=== PATIENT | male | born 1935 | race Caucasian/White ===

== ENCOUNTER 2018-04-18 17:50 | Inpatient (IN) | payer MEDICARE, MEDICAID ==
--- NOTE | 2018-04-18 18:12 | ED Physician Chart ---
ED Chief Complaint/HPI - Patient Information Date Seen:: 04/18/18 Time Seen:: 18:00 Chief Complaint:: Agitation History of Present Illness:: onset x 3 days of agitation and anxiety; no report of LOC, ALOC, SIs, AMS, H/As , neck pain, C/P, SOB, Abd. Pain, A/N/V/D/C, fever, chills, or urinary s/s Allergies:: Allergies Allergy/AdvReac Type Severity Reaction Status Date / Time No Known Allergies Allergy Verified 04/18/18 17:57 Vitals:: Vital Signs - 8 hr 04/18/18 18:03 Temp 99.1 F HR 85 RR 18 BP 133/81 O2 Sat % 98 Historian:: Patient, EMS Review:: Nurse's Note Reviewed, Old Chart Reviewed, EMS run form Reviewed ED Review of Systems - Review of Systems General/Constitutional: No fever, No chills, No weight loss, No weakness, No diaphoresis, No edema, No loss of appetite Skin: No skin lesions, No rash, No bruising Head: No headache, No light-headedness Eyes: No loss of vision, No pain, No diplopia ENT: No earache, No nasal drainage, No sore throat, No tinnitus Neck: No neck pain, No swelling, No thyromegaly, No stiffness, No mass noted Cardio Vascular: No chest pain, No palpitations, No PND, No orthopnea, No edema Pulmonary: No SOB, No cough, No sputum, No wheezing GI: No nausea, No vomiting, No diarrhea, No pain, No melena, No hematochezia, No constipation, No hematemesis G/U: No dysuria, No frequency, No hematuria, No nacturia Musculoskeletal: No bone or joint pain, No back pain, No muscle pain Endocrine: No polyuria, No polydipsia Psychiatric: Prior psych history, Depression, Anxiety, No suicidal ideation, No homicidal ideation, No auditory hallucination, No visual hallucination Hematopoietic: No bruising, No lymphadenopathy Allergic/Immuno: No urticaria, No angioedema Neurological: No syncope, No focal symptoms, No weakness, No paresthesia, No headache, No seizure, No dizziness, No confusion, No vertigo ED Past Medical History - Past Medical History Obtainable: Yes Past Medical History: HTN, Dyslipidemia, Arthritis Family History: HTN Social History: Non Smoker, No Alcohol, No Drug Use, Single, Care Facility Surgical History: None Psychiatricy History: Depression, Bipolar Medication: Reviewed Family Medical History - Family Member Father History Unknown: Yes ED Physical Exam - Physical Examination General/Constitutional: Awake, Well-developed, well-nourished, Alert, No distress, GCS 15, Non-toxic appearing, Ambulatory Head: Atraumatic Eyes: Lids, conjuctiva normal, PERRL, EOMI Skin: Nl inspection, No rash, No skin lesions, No ecchymosis, Well hydrated, No lymphadenopathy ENMT: External ears, nose nl, TM canals nl, Nasal exam nl, Lips, teeth, gums nl , Oropharynx nl, Tonsils nl Neck: Nontender, Full ROM w/o pain, No JVD, No nuchal rigidity, No bruit, No mass, No stridor Respiratory: Nl effort/Exclusion, Clear to Auscultation, No Wheeze/Rhonchi/Rales Cardio Vascular: RRR, No murmur, gallop, rubs, NL S1 S2, Carotid/Femoral/Distal pulses equal bilaterally GI: No tenderness/rebounding/guarding, No organomegaly, No hernia, Normal BS's, Nondistended, No mass/bruits, No McBurney tenderness : No CVA tenderness Extremities: No tenderness or effusion, Full ROM, normal strength in all extremities, No edema, Normal digits & nails Neuro/Psych: Alert/oriented, DTR's symmetric, Normal sensory exam, Normal motor strength, Judgement/insight normal, Mood normal, Normal gait, No focal deficits Other Neuro/Psych comments:: + Psychomotor Agitation; Anxious pt; no SIs; Mood/Affect: Labile Misc: Normal back, No paraspinal tenderness ED Labs/Radiology/EKG Results - Lab Results Comments:: Reviewed - EKG Interpretations EKG Time:: 18:27 Rate & Rhythm: 82; NSR Comments:: non-specific st-t changes ED Septic Shock - . Is Septic Shock (SBP<90, OR Lactate>4 mmol\L) present?: No - <6hrs of presentation: Vital Signs: Vital Signs - 8 hr 04/18/18 18:03 Temp 99.1 F HR 85 RR 18 BP 133/81 O2 Sat % 98 ED Reassessment (Disposition) - Reassessment Reassessment Condition:: Improved - Diagnosis Diagnosis:: Agitation; Anxiety; Medical Clearance
[2018-04-18 19:09] LABS: % BASOPHILS 0.4 % (0.0-2.0); % EOSINOPHILS 4.1 % (0.0-5.0); % LYMPHOCYTES 21.1 % (20.0-50.0); % MONOCYTES 11.3 % (2.0-10.0); % NEUTROPHILS 63.1 % (40.0-80.0); EOSINOPHILE ABSOLUTE 0.2 Th/cmm (0.1-0.4); HEMATOCRIT 43.8 % (41.0-60); HEMOGLOBIN 14.6 gm/dL (12-16); LYMPHOCYTE ABSOLUTE 1.1 Th/cmm (1.5-3.0); MEAN CELL VOLUME 98.2 fl (80-99); MEAN CORPUSCULAR HEMOGLOBIN 32.8 pg (27.0-31.0); MEAN CORPUSCULAR HGB CONC 33.4 pg (28.0-36.0); MEAN PLATELET VOLUME 8.4 fl; MONOCYTE ABSOLUTE 0.6 Th/cmm (0.3-1.0); NEUTROPHILE ABSOLUTE 3.3 Th/cmm (1.8-8.0); PLATELET COUNT 197 Th/cmm (150-400); RED BLOOD COUNT 4.46 Mil/cmm (3.80-5.80); RED CELL DISTRIBUTION WIDTH 12.5 % (11.5-20.0); WHITE BLOOD COUNT 5.2 Th/cmm (4.8-10.8)
[2018-04-18 19:27] LABS: ACETAMINOPHEN < 10.0 ug/mL (10.0-30.0); ALB/GLOB RATIO 1.3 (1.0-1.8); ALBUMIN 3.9 gm/dL (4.2-5.5); ALKALINE PHOSPHATASE 87 U/L (34-104); ANION GAP 13.3 (7.0-16.0); BILIRUBIN,TOTAL 0.5 mg/dL (0.3-1.0); BUN - UREA NITROGEN 16 mg/dL (7-25); CALCIUM SERUM 9.4 mg/dL (8.6-10.3); CARBON DIOXIDE 25.8 mEq/L (21.0-31.0); CHLORIDE 104 mEq/L (98-107); CHOLESTEROL 141 mg/dL (<200); CREATININE - SERUM 1.1 mg/dL (0.7-1.3); GLUCOSE 82 mg/dL (70-105); HDL -HIGH DENSITY LIPOPROTEIN 41 mg/dL (23-92); POTASSIUM SERUM 4.1 mEq/L (3.5-5.1); SALICYLATES (ASPIRIN) < 25.0 mg/L (30.0-100.0); SGOT 23 U/L (13-39); SGPT/ALT 20 U/L (7-52); SODIUM SERUM 139 mEq/L (136-145); TOTAL PROTEIN,SERUM 6.9 gm/dL (6.0-8.3); TRIGLYCERIDES 62 mg/dL (<150)
[2018-04-18 20:37] VITALS: BP 132/84
[2018-04-18] MEDS ORDERED: Maalox 30 mL Cup PO PRN (22:00)
[2018-04-18] MEDS ORDERED: Magnesium Hydroxide (MOM) 30 mL UDC PO PRN (22:00)
[2018-04-19] MEDS: Pantoprazole 40 mg EC Tab PO SCH (08:30)
[2018-04-19] MEDS: Fexofenadine 60 mg Tab PO SCH ×2 (08:31→17:15)
[2018-04-19] MEDS: Atorvastatin Calcium 10 MG TAB PO SCH (08:31)
[2018-04-19] MEDS: Multivitamin Tab PO SCH (08:32)
[2018-04-19] MEDS ORDERED: Non-Formulary Item 1 EA (Melatonin [Melatonin] 6 MG) PO SCH (21:00)
--- NOTE | 2018-04-19 21:42 | History & Physical ---
ADMIT DATE: CHIEF COMPLAINT: Psychosis. HISTORY OF PRESENT ILLNESS: The patient is an 82-year-old male with long history of dementia, hypertension, benign prostatic hypertrophy, hyperlipidemia, resident at [facility], transferred to the Emergency Room for evaluation and treatment. The patient has been agitated, confused. No chest pain, no shortness of breath, nausea, vomiting, fever or chills. PAST MEDICAL HISTORY: Significant for hypertension, benign prostatic hypertrophy, hyperlipidemia, dementia and psychosis. PAST SURGICAL HISTORY: No recent surgery. ALLERGIES: None. MEDICATIONS: Follow admission reconciliation. SOCIAL HISTORY: Nonsmoker, no alcohol, no drug. FAMILY HISTORY: Noncontributory. REVIEW OF SYSTEMS: RENAL SYSTEM: No history of chronic renal disorder. CARDIOVASCULAR SYSTEM: No coronary artery disease. ENDOCRINE SYSTEM: No diabetes or thyroid problem. GASTROINTESTINAL SYSTEM: No upper or lower GI bleeding. NEUROLOGICAL SYSTEM: No seizure disorder. MUSCULOSKELETAL SYSTEM: No muscular dystrophy. HEMATOLOGIC: No bleeding tendencies. RESPIRATORY SYSTEM: No asthma. GENITOURINARY: No dysuria or hematuria. PHYSICAL EXAMINATION: GENERAL: He is awake, not coherent. VITAL SIGNS: Temperature is 98.6, heart rate 88, blood pressure 144/78. HEENT: Normocephalic. Pupils reactive to light and accommodation. Sclerae clear. NECK: Supple. Negative for lymphadenopathy, JVD or bruit. CHEST: Entry of air bilaterally normal. No rhonchi or wheezing. HEART: S1, S2 normal. No gallop rhythm. ABDOMEN: Soft, bowel sounds positive. EXTREMITIES: No edema. NEUROLOGIC: He is awake, alert, mildly confused. No focal motor or sensory deficit. LABORATORY DATA: White blood cell 5.2, hemoglobin 14.6, hematocrit 43.8, platelet 197. Sodium 139, potassium 4.1, BUN is 16, creatinine 0.1. ASSESSMENT: 1. Hypertension. 2. Benign prostatic hypertrophy. 3. Hyperlipidemia. 4. Dementia. 5. Psychosis. PLAN: The patient is in the hospital under Dr. Powers's service. Medical problem to be addressed during hospitalization is his psychosis. Medical problems to be addressed at discharge are hypertension, benign prostatic hypertrophy, hyperlipidemia. The patient is medically stable for activity. The patient is a full code. Thank you Dr. Powers for asking me to see your patient. JOB# [id number]
--- NOTE | 2018-04-20 02:55 | Psychiatric Evaluation ---
DATE OF SERVICE: 04/19/2018 JUSTIFICATION FOR HOSPITALIZATION: Agitation and anxiety. 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 PAST PSYCHIATRIC HISTORY: Unclear. Documentation of schizophrenia, dementia. FAMILY HISTORY: Noncontributory. SOCIAL HISTORY: The patient coming from care home. Not answering questions such as where he was born. MEDICATIONS: Reviewed including dosages and frequencies. MENTAL STATUS EXAMINATION: -Thai male wearing a hat, wandering back and forth, psychomotorically accelerated. Mood "fine." Affect flat. Thought processes were disorganized, disoriented. No overt SI or HI, but mumbling to self, paranoid as noted. Poor insight, poor judgment. PROVISIONAL DIAGNOSES: Dementia, schizophrenia per documentation. Under medical, please see full H and P. ESTIMATED LENGTH OF STAY: 7-10 days. 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 PLAN: We will continue to monitor, titrate and adjust medications. Continue Seroquel. The patient will likely need dose adjustments of medications. CONDITIONS UPON DISCHARGE: Improved mood, better control of his psychotic symptoms. JOB# [id number]
[2018-04-20] MEDS: Pantoprazole 40 mg EC Tab PO SCH (06:51)
[2018-04-20] MEDS: Multivitamin Tab PO SCH ×2 (09:56→10:09)
[2018-04-20] MEDS: Atorvastatin Calcium 10 MG TAB PO SCH ×2 (09:56→10:09)
[2018-04-20] MEDS: Fexofenadine 60 mg Tab PO SCH ×3 (09:56→16:21)
--- NOTE | 2018-04-20 21:38 | Internal Medicine Prog Note ---
Internal Medicine Subjective - Subjective Service Date: 04/20/18 Patient seen and examined:: with staff Patient is:: awake, verbal, in bed, talking, confused Per staff patient has:: no adverse event Internal Medicine Objective - Results Result Diagrams: 04/18/18 18:57 04/18/18 18:57 Recent Labs: Laboratory Last Values WBC 5.2 Th/cmm (4.8-10.8) 04/18/18 18:57 RBC 4.46 Mil/cmm (3.80-5.80) 04/18/18 18:57 Hgb 14.6 gm/dL (12-16) 04/18/18 18:57 Hct 43.8 % (41.0-60) 04/18/18 18:57 MCV 98.2 fl (80-99) 04/18/18 18:57 MCH 32.8 pg (27.0-31.0) H 04/18/18 18:57 MCHC Differential 33.4 pg (28.0-36.0) 04/18/18 18:57 RDW 12.5 % (11.5-20.0) 04/18/18 18:57 Plt Count 197 Th/cmm (150-400) 04/18/18 18:57 MPV 8.4 fl 04/18/18 18:57 Neutrophils % 63.1 % (40.0-80.0) 04/18/18 18:57 Lymphocytes % 21.1 % (20.0-50.0) 04/18/18 18:57 Monocytes % 11.3 % (2.0-10.0) H 04/18/18 18:57 Eosinophils % 4.1 % (0.0-5.0) 04/18/18 18:57 Basophils % 0.4 % (0.0-2.0) 04/18/18 18:57 Sodium 139 mEq/L (136-145) 04/18/18 18:57 Potassium 4.1 mEq/L (3.5-5.1) 04/18/18 18:57 Chloride 104 mEq/L (98-107) 04/18/18 18:57 Carbon Dioxide 25.8 mEq/L (21.0-31.0) 04/18/18 18:57 Anion Gap 13.3 (7.0-16.0) 04/18/18 18:57 BUN 16 mg/dL (7-25) 04/18/18 18:57 Creatinine 1.1 mg/dL (0.7-1.3) 04/18/18 18:57 Est GFR ( Amer) TNP 04/18/18 18:57 Est GFR (Non-Af Amer) TNP 04/18/18 18:57 BUN/Creatinine Ratio 14.5 04/18/18 18:57 Glucose 82 mg/dL (70-105) 04/18/18 18:57 Calcium 9.4 mg/dL (8.6-10.3) 04/18/18 18:57 Total Bilirubin 0.5 mg/dL (0.3-1.0) 04/18/18 18:57 AST 23 U/L (13-39) 04/18/18 18:57 ALT 20 U/L (7-52) 04/18/18 18:57 Alkaline Phosphatase 87 U/L (34-104) 04/18/18 18:57 Troponin I 0.01 ng/mL (0.01-0.05) 04/18/18 18:57 Total Protein 6.9 gm/dL (6.0-8.3) 04/18/18 18:57 Albumin 3.9 gm/dL (4.2-5.5) L 04/18/18 18:57 Globulin 3.0 gm/dL 04/18/18 18:57 Albumin/Globulin Ratio 1.3 (1.0-1.8) 04/18/18 18:57 Triglycerides 62 mg/dL (<150) 04/18/18 18:57 Cholesterol 141 mg/dL (<200) 04/18/18 18:57 LDL Cholesterol Direct 87 mg/dL (75-193) 04/18/18 18:57 HDL Cholesterol 41 mg/dL (23-92) 04/18/18 18:57 TSH 1.91 uIU/ml (0.34-5.60) 04/18/18 18:57 Salicylates < 25.0 mg/L (30.0-100.0) L 04/18/18 18:57 Acetaminophen < 10.0 ug/mL (10.0-30.0) L 04/18/18 18:57 Ethyl Alcohol < 10 mg/dL (0-10) 04/18/18 18:57 - Physical Exam Vitals and I&O: Vital Signs Temp 0 F 04/20/18 05:53 Pulse 98 04/19/18 14:00 Resp 19 04/20/18 20:00 BP 114/66 04/19/18 14:00 Pulse Ox 97 04/19/18 14:00 Intake & Output 04/20/18 04/20/18 04/21/18 06:59 18:59 06:59 Other: # Voids 3 Stool Characteristics Soft Soft Soft Active Medications: Current Medications Acetaminophen (Tylenol) 650 mg PO Q4HR PRN PRN Reason: Mild Pain / Temp above 100 Stop: 06/17/18 21:59 Al Hydrox/Mg Hydrox/Simethicone (Maalox) 30 ml PO Q4HR PRN PRN Reason: GI DISTRESS Stop: 06/17/18 21:59 Aspirin (Ecotrin) 81 mg PO DAILY [facility] Stop: 06/18/18 08:59 Last Admin: 04/20/18 10:09 Dose: Not Given Atorvastatin Calcium (Lipitor) 10 mg PO DAILY [facility]; Protocol Stop: 06/18/18 08:59 Last Admin: 04/20/18 10:09 Dose: Not Given Cyanocobalamin (Vitamin B12) 1,000 mcg IM QMONTH [facility] Stop: 06/18/18 08:59 Last Admin: 04/19/18 08:32 Dose: 1,000 mcg Donepezil HCl (Aricept) 5 mg PO HS [facility] Stop: 06/19/18 20:59 Doxazosin Mesylate (Cardura) 2 mg PO HS [facility] Stop: 06/18/18 20:59 Last Admin: 04/19/18 21:18 Dose: Not Given Fexofenadine HCl (Noemi) 60 mg PO BID [facility] Stop: 06/18/18 08:59 Last Admin: 04/20/18 16:21 Dose: Not Given Lorazepam (Ativan) 0.5 mg PO Q4HR PRN; Protocol PRN Reason: Anxiety Stop: 05/18/18 21:59 Last Admin: 04/19/18 17:20 Dose: 0.5 mg Magnesium Hydroxide (Milk Of Magnesia) 30 ml PO HS PRN PRN Reason: Constipation Memantine (Namenda) 5 mg PO DAILY [facility] Stop: 06/20/18 08:59 Multivitamins/Vitamin C (Theragran) 1 tab PO DAILY [facility] Stop: 06/18/18 08:59 Last Admin: 04/20/18 10:09 Dose: Not Given Pantoprazole Sodium (Protonix) 40 mg PO DAILY@0730 [facility] Stop: 06/18/18 07:29 Last Admin: 04/20/18 06:51 Dose: Not Given Quetiapine Fumarate (Seroquel) 200 mg PO BID [facility]; Protocol Stop: 06/18/18 08:59 Last Admin: 04/20/18 16:21 Dose: Not Given Zolpidem Tartrate (Ambien) 5 mg PO HS PRN PRN Reason: Insomnia Stop: 06/17/18 21:59 General: alert, demented HEENT: NC/AT, PERRLA, anicteric sclerae, throat clear Neck: Supple, No JVD, No thyromegaly, +2 carotid pulse wo bruit, No LAD Lungs: CTAB Cardiovascular: RRR, Normal S1, Normal S2, without murmur Abdomen: soft, non-tender, non-distended Extremities: clear Neurological: no change Internal Medicine Assmt/Plan - Assessment Assessment: 1.HTN. 2.BPH. 3.HYPERLIPIDEMIA. 4.DEMENTIA. 5.PSYCHOSIS. - Plan Plan: CONTINUE ON CURRENT MEDICATION AND DIET.
--- NOTE | 2018-04-21 04:04 | Progress Notes ---
DATE: 04/20/2018 SUBJECTIVE: An 82-year-old male, very confused, disoriented, forgetful, preoccupied, talking to himself, could combative, agitated at times, disrobing in the middle of the hallway, having difficulty putting his own clothes. Not answering any questions. "Just leave me alone with my thoughts." The patient needing some p.r.n. Ativan for becoming unruly, going into other patients' rooms starting to swing and trying to hit staff. ASSESSMENT: The patient unruly, agitated, very confused, disoriented, disrobing. PLAN: We will continue to monitor. Continue Seroquel. The patient may need adjustment of medications. JOB# [id number]
[2018-04-21] MEDS: Pantoprazole 40 mg EC Tab PO SCH (06:42)
[2018-04-21] MEDS: Multivitamin Tab PO SCH (09:26)
[2018-04-21] MEDS: Atorvastatin Calcium 10 MG TAB PO SCH (09:26)
[2018-04-21] MEDS: Fexofenadine 60 mg Tab PO SCH ×2 (09:34→16:05)
--- NOTE | 2018-04-21 21:37 | Internal Medicine Prog Note ---
Internal Medicine Subjective - Subjective Service Date: 04/21/18 Patient is:: awake, verbal, in bed, talking, confused Per staff patient has:: no adverse event Internal Medicine Objective - Results Result Diagrams: 04/18/18 18:57 04/18/18 18:57 Recent Labs: Laboratory Last Values WBC 5.2 Th/cmm (4.8-10.8) 04/18/18 18:57 RBC 4.46 Mil/cmm (3.80-5.80) 04/18/18 18:57 Hgb 14.6 gm/dL (12-16) 04/18/18 18:57 Hct 43.8 % (41.0-60) 04/18/18 18:57 MCV 98.2 fl (80-99) 04/18/18 18:57 MCH 32.8 pg (27.0-31.0) H 04/18/18 18:57 MCHC Differential 33.4 pg (28.0-36.0) 04/18/18 18:57 RDW 12.5 % (11.5-20.0) 04/18/18 18:57 Plt Count 197 Th/cmm (150-400) 04/18/18 18:57 MPV 8.4 fl 04/18/18 18:57 Neutrophils % 63.1 % (40.0-80.0) 04/18/18 18:57 Lymphocytes % 21.1 % (20.0-50.0) 04/18/18 18:57 Monocytes % 11.3 % (2.0-10.0) H 04/18/18 18:57 Eosinophils % 4.1 % (0.0-5.0) 04/18/18 18:57 Basophils % 0.4 % (0.0-2.0) 04/18/18 18:57 Sodium 139 mEq/L (136-145) 04/18/18 18:57 Potassium 4.1 mEq/L (3.5-5.1) 04/18/18 18:57 Chloride 104 mEq/L (98-107) 04/18/18 18:57 Carbon Dioxide 25.8 mEq/L (21.0-31.0) 04/18/18 18:57 Anion Gap 13.3 (7.0-16.0) 04/18/18 18:57 BUN 16 mg/dL (7-25) 04/18/18 18:57 Creatinine 1.1 mg/dL (0.7-1.3) 04/18/18 18:57 Est GFR ( Amer) TNP 04/18/18 18:57 Est GFR (Non-Af Amer) TNP 04/18/18 18:57 BUN/Creatinine Ratio 14.5 04/18/18 18: Glucose 82 mg/dL (70-105) 04/18/18 18: Calcium 9.4 mg/dL (8.6-10.3) 04/18/18 18:57 Total Bilirubin 0.5 mg/dL (0.3-1.0) 04/18/18 18: AST 23 U/L (13-39) 04/18/18 18:57 ALT 20 U/L (7-52) 04/18/18 18:57 Alkaline Phosphatase 87 U/L (34-104) 04/18/18 18: Troponin I 0.01 ng/mL (0.01-0.05) 04/18/18 18: Total Protein 6.9 gm/dL (6.0-8.3) 04/18/18 18:57 Albumin 3.9 gm/dL (4.2-5.5) L 04/18/18 18: Globulin 3.0 gm/dL 04/18/18 18: Albumin/Globulin Ratio 1.3 (1.0-1.8) 04/18/18 18:57 Triglycerides 62 mg/dL (<150) 04/18/18 18:57 Cholesterol 141 mg/dL (<200) 04/18/18 18:57 LDL Cholesterol Direct 87 mg/dL (75-193) 04/18/18 18:57 HDL Cholesterol 41 mg/dL (23-92) 04/18/18 18:57 TSH 1.91 uIU/ml (0.34-5.60) 04/18/18 18:57 Salicylates < 25.0 mg/L (30.0-100.0) L 04/18/18 18:57 Acetaminophen < 10.0 ug/mL (10.0-30.0) L 04/18/18 18:57 Ethyl Alcohol < 10 mg/dL (0-10) 04/18/18 18:57 RPR NONREACTIVE (NONREACTIVE) 04/18/18 18:57 - Physical Exam Vitals and I&O: Vital Signs Temp 97.4 F 04/21/18 14:00 Pulse 103 04/21/18 14:00 Resp 20 04/21/18 14:00 BP 129/64 04/21/18 14:00 Pulse Ox 98 04/21/18 14:00 Intake & Output 04/21/18 04/21/18 04/22/18 06:59 18:59 06:59 Intake Total 1200 Balance 1200 Intake: Oral 1200 Other: # Bowel Movements 1 Stool Characteristics Soft Soft Active Medications: Current Medications Acetaminophen (Tylenol) 650 mg PO Q4HR PRN PRN Reason: Mild Pain / Temp above 100 Stop: 06/17/18 21:59 Al Hydrox/Mg Hydrox/Simethicone (Maalox) 30 ml PO Q4HR PRN PRN Reason: GI DISTRESS Stop: 06/17/18 21:59 Aspirin (Ecotrin) 81 mg PO DAILY [facility] Stop: 06/18/18 08:59 Last Admin: 04/21/18 08:26 Dose: 81 mg Atorvastatin Calcium (Lipitor) 10 mg PO DAILY [facility]; Protocol Stop: 06/18/18 08:59 Last Admin: 04/21/18 09:26 Dose: Not Given Cyanocobalamin (Vitamin B12) 1,000 mcg IM QMONTH [facility] Stop: 06/18/18 08:59 Last Admin: 04/19/18 08:32 Dose: 1,000 mcg Donepezil HCl (Aricept) 5 mg PO HS [facility] Stop: 06/19/18 20:59 Last Admin: 04/20/18 21:42 Dose: 5 mg Doxazosin Mesylate (Cardura) 2 mg PO HS [facility] Stop: 06/18/18 20:59 Last Admin: 04/20/18 21:42 Dose: 2 mg Fexofenadine HCl (Noemi) 60 mg PO BID [facility] Stop: 06/18/18 08:59 Last Admin: 04/21/18 16:05 Dose: 60 mg Lorazepam (Ativan) 0.5 mg PO Q4HR PRN; Protocol PRN Reason: Anxiety Stop: 05/18/18 21:59 Last Admin: 04/21/18 02:49 Dose: 0.5 mg Magnesium Hydroxide (Milk Of Magnesia) 30 ml PO HS PRN PRN Reason: Constipation Memantine (Namenda) 5 mg PO DAILY [facility] Stop: 06/20/18 08:59 Last Admin: 04/21/18 08:27 Dose: 5 mg Multivitamins/Vitamin C (Theragran) 1 tab PO DAILY [facility] Stop: 06/18/18 08:59 Last Admin: 04/21/18 09:26 Dose: Not Given Pantoprazole Sodium (Protonix) 40 mg PO DAILY@0730 [facility] Stop: 06/18/18 07:29 Last Admin: 04/21/18 06:42 Dose: 40 mg Quetiapine Fumarate (Seroquel) 200 mg PO BID [facility]; Protocol Stop: 06/18/18 08:59 Last Admin: 04/21/18 16:05 Dose: 200 mg Zolpidem Tartrate (Ambien) 5 mg PO HS PRN PRN Reason: Insomnia Stop: 06/17/18 21:59 General: alert, demented HEENT: NC/AT, PERRLA, anicteric sclerae, throat clear Neck: Supple, No JVD, No thyromegaly, +2 carotid pulse wo bruit, No LAD Lungs: CTAB Cardiovascular: RRR, Normal S1, Normal S2, without murmur Abdomen: soft, non-tender, non-distended Extremities: clear Neurological: no change Internal Medicine Assmt/Plan - Assessment Assessment: 1.HTN. 2.BPH. 3.HYPERLIPIDEMIA. 4.DEMENTIA. 5.PSYCHOSIS. - Plan Plan: CONTINUE ON CURRENT MEDICATION AND DIET.
[2018-04-22] MEDS: Pantoprazole 40 mg EC Tab PO SCH (06:37)
--- NOTE | 2018-04-22 07:12 | Progress Notes ---
DATE: SUBJECTIVE: The patient is coming from [facility], very confused, disoriented, disrobing at times, very confused and preoccupied, wandering into other patients' rooms, combative at times, requiring a lot of redirection and prompting. The patient does not know where he is or what is going on. The patient sometimes swinging, hitting. ASSESSMENT: The patient remains symptomatic, concerns for schizophrenia, dementia. PLAN: We will continue to monitor. Continue Alaina Sunshine Seroquel. JOB# [id number]
[2018-04-22] MEDS: Multivitamin Tab PO SCH (08:49)
[2018-04-22] MEDS: Fexofenadine 60 mg Tab PO SCH ×2 (08:50→17:19)
[2018-04-22] MEDS: Atorvastatin Calcium 10 MG TAB PO SCH (08:51)
--- NOTE | 2018-04-22 15:29 | Internal Medicine Prog Note ---
Internal Medicine Subjective - Subjective Service Date: 04/22/18 Patient seen and examined:: with staff Patient is:: awake, verbal, in bed, talking, confused Per staff patient has:: no adverse event Internal Medicine Objective - Results Result Diagrams: 04/18/18 18:57 04/18/18 18:57 Recent Labs: Laboratory Last Values WBC 5.2 Th/cmm (4.8-10.8) 04/18/18 18:57 RBC 4.46 Mil/cmm (3.80-5.80) 04/18/18 18:57 Hgb 14.6 gm/dL (12-16) 04/18/18 18:57 Hct 43.8 % (41.0-60) 04/18/18 18:57 MCV 98.2 fl (80-99) 04/18/18 18:57 MCH 32.8 pg (27.0-31.0) H 04/18/18 18:57 MCHC Differential 33.4 pg (28.0-36.0) 04/18/18 18:57 RDW 12.5 % (11.5-20.0) 04/18/18 18:57 Plt Count 197 Th/cmm (150-400) 04/18/18 18:57 MPV 8.4 fl 04/18/18 18:57 Neutrophils % 63.1 % (40.0-80.0) 04/18/18 18:57 Lymphocytes % 21.1 % (20.0-50.0) 04/18/18 18:57 Monocytes % 11.3 % (2.0-10.0) H 04/18/18 18:57 Eosinophils % 4.1 % (0.0-5.0) 04/18/18 18:57 Basophils % 0.4 % (0.0-2.0) 04/18/18 18:57 Sodium 139 mEq/L (136-145) 04/18/18 18:57 Potassium 4.1 mEq/L (3.5-5.1) 04/18/18 18:57 Chloride 104 mEq/L (98-107) 04/18/18 18:57 Carbon Dioxide 25.8 mEq/L (21.0-31.0) 04/18/18 18:57 Anion Gap 13.3 (7.0-16.0) 04/18/18 18:57 BUN 16 mg/dL (7-25) 04/18/18 18:57 Creatinine 1.1 mg/dL (0.7-1.3) 04/18/18 18:57 Est GFR ( Amer) TNP 04/18/18 18:57 Est GFR (Non-Af Amer) TNP 04/18/18 18:57 BUN/Creatinine Ratio 14.5 04/18/18 18:57 Glucose 82 mg/dL (70-105) 04/18/18 18:57 Calcium 9.4 mg/dL (8.6-10.3) 04/18/18 18:57 Total Bilirubin 0.5 mg/dL (0.3-1.0) 04/18/18 18:57 AST 23 U/L (13-39) 04/18/18 18:57 ALT 20 U/L (7-52) 04/18/18 18:57 Alkaline Phosphatase 87 U/L (34-104) 04/18/18 18:57 Troponin I 0.01 ng/mL (0.01-0.05) 04/18/18 18:57 Total Protein 6.9 gm/dL (6.0-8.3) 04/18/18 18:57 Albumin 3.9 gm/dL (4.2-5.5) L 04/18/18 18:57 Globulin 3.0 gm/dL 04/18/18 18:57 Albumin/Globulin Ratio 1.3 (1.0-1.8) 04/18/18 18:57 Triglycerides 62 mg/dL (<150) 04/18/18 18:57 Cholesterol 141 mg/dL (<200) 04/18/18 18:57 LDL Cholesterol Direct 87 mg/dL (75-193) 04/18/18 18:57 HDL Cholesterol 41 mg/dL (23-92) 04/18/18 18:57 TSH 1.91 uIU/ml (0.34-5.60) 04/18/18 18:57 Salicylates < 25.0 mg/L (30.0-100.0) L 04/18/18 18:57 Acetaminophen < 10.0 ug/mL (10.0-30.0) L 04/18/18 18:57 Ethyl Alcohol < 10 mg/dL (0-10) 04/18/18 18:57 RPR NONREACTIVE (NONREACTIVE) 04/18/18 18:57 - Physical Exam Vitals and I&O: Vital Signs Temp 97.4 F 04/21/18 14:00 Pulse 103 04/21/18 14:00 Resp 19 04/22/18 10:56 BP 129/64 04/21/18 14:00 Pulse Ox 98 04/21/18 14:00 Intake & Output 04/21/18 04/22/18 04/22/18 18:59 06:59 18:59 Intake Total 1200 Balance 1200 Intake: Oral 1200 Other: # Bowel Movements 1 Stool Characteristics Soft Soft Active Medications: Current Medications Acetaminophen (Tylenol) 650 mg PO Q4HR PRN PRN Reason: Mild Pain / Temp above 100 Stop: 06/17/18 21:59 Al Hydrox/Mg Hydrox/Simethicone (Maalox) 30 ml PO Q4HR PRN PRN Reason: GI DISTRESS Stop: 06/17/18 21:59 Aspirin (Ecotrin) 81 mg PO DAILY [facility] Stop: 06/18/18 08:59 Last Admin: 04/22/18 08:50 Dose: 81 mg Atorvastatin Calcium (Lipitor) 10 mg PO DAILY [facility]; Protocol Stop: 06/18/18 08:59 Last Admin: 04/22/18 08:51 Dose: 10 mg Cyanocobalamin (Vitamin B12) 1,000 mcg IM QMONTH [facility] Stop: 06/18/18 08:59 Last Admin: 04/19/18 08:32 Dose: 1,000 mcg Donepezil HCl (Aricept) 5 mg PO HS [facility] Stop: 06/19/18 20:59 Last Admin: 04/21/18 22:06 Dose: Not Given Doxazosin Mesylate (Cardura) 2 mg PO HS [facility] Stop: 06/18/18 20:59 Last Admin: 04/21/18 22:06 Dose: Not Given Fexofenadine HCl (Noemi) 60 mg PO BID [facility] Stop: 06/18/18 08:59 Last Admin: 04/22/18 08:50 Dose: 60 mg Lorazepam (Ativan) 0.5 mg PO Q4HR PRN; Protocol PRN Reason: Anxiety Stop: 05/18/18 21:59 Last Admin: 04/21/18 02:49 Dose: 0.5 mg Magnesium Hydroxide (Milk Of Magnesia) 30 ml PO HS PRN PRN Reason: Constipation Memantine (Namenda) 5 mg PO DAILY [facility] Stop: 06/20/18 08:59 Last Admin: 04/22/18 08:49 Dose: 5 mg Multivitamins/Vitamin C (Theragran) 1 tab PO DAILY [facility] Stop: 06/18/18 08:59 Last Admin: 04/22/18 08:49 Dose: 1 tab Pantoprazole Sodium (Protonix) 40 mg PO DAILY@0730 [facility] Stop: 06/18/18 07:29 Last Admin: 04/22/18 06:37 Dose: Not Given Quetiapine Fumarate (Seroquel) 200 mg PO BID [facility]; Protocol Stop: 06/18/18 08:59 Last Admin: 04/22/18 08:50 Dose: 200 mg Zolpidem Tartrate (Ambien) 5 mg PO HS PRN PRN Reason: Insomnia Stop: 06/17/18 21:59 General: alert, demented HEENT: NC/AT, PERRLA, anicteric sclerae, throat clear Neck: Supple, No JVD, No thyromegaly, +2 carotid pulse wo bruit, No LAD Lungs: CTAB Cardiovascular: RRR, Normal S1, Normal S2, without murmur Abdomen: soft, non-tender, non-distended Extremities: clear Neurological: no change Internal Medicine Assmt/Plan - Assessment Assessment: 1.HTN. 2.BPH. 3.HYPERLIPIDEMIA. 4.DEMENTIA. 5.PSYCHOSIS. - Plan Plan: CONTINUE ON CURRENT MEDICATION AND DIET.
--- NOTE | 2018-04-22 23:59 | Progress Notes ---
DATE: 04/22/2018 SUBJECTIVE: The patient was seen on 04/22/2018, very confused, disoriented, only knows his name, does not know where he is or what is going on, restless in a Zoie chair, sometimes disrobing, redirectable, constantly taking off his shirt, mumbling to self, internally preoccupied. ASSESSMENT: The patient requiring a lot of redirection, prompting, still very confused, disoriented, disrobing, inappropriate behaviors. Medications were reviewed. We will continue to monitor given his ongoing symptoms. He still remains highly impulsive and unpredictable. JOB# [id number]
[2018-04-23] MEDS: Pantoprazole 40 mg EC Tab PO SCH (06:43)
[2018-04-23] MEDS: Multivitamin Tab PO SCH (08:49)
[2018-04-23] MEDS: Fexofenadine 60 mg Tab PO SCH ×2 (08:54→17:00)
[2018-04-23] MEDS: Atorvastatin Calcium 10 MG TAB PO SCH (08:54)
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
--- NOTE | 2018-04-23 19:27 | Internal Medicine Prog Note ---
Internal Medicine Subjective - Subjective Service Date: 04/23/18 Patient seen and examined:: with staff Patient is:: awake, verbal, in bed, talking, confused Per staff patient has:: no adverse event Internal Medicine Objective - Results Result Diagrams: 04/18/18 18:57 04/18/18 18:57 Recent Labs: Laboratory Last Values WBC 5.2 Th/cmm (4.8-10.8) 04/18/18 18:57 RBC 4.46 Mil/cmm (3.80-5.80) 04/18/18 18:57 Hgb 14.6 gm/dL (12-16) 04/18/18 18:57 Hct 43.8 % (41.0-60) 04/18/18 18:57 MCV 98.2 fl (80-99) 04/18/18 18:57 MCH 32.8 pg (27.0-31.0) H 04/18/18 18:57 MCHC Differential 33.4 pg (28.0-36.0) 04/18/18 18:57 RDW 12.5 % (11.5-20.0) 04/18/18 18:57 Plt Count 197 Th/cmm (150-400) 04/18/18 18:57 MPV 8.4 fl 04/18/18 18:57 Neutrophils % 63.1 % (40.0-80.0) 04/18/18 18:57 Lymphocytes % 21.1 % (20.0-50.0) 04/18/18 18:57 Monocytes % 11.3 % (2.0-10.0) H 04/18/18 18:57 Eosinophils % 4.1 % (0.0-5.0) 04/18/18 18:57 Basophils % 0.4 % (0.0-2.0) 04/18/18 18:57 Sodium 139 mEq/L (136-145) 04/18/18 18:57 Potassium 4.1 mEq/L (3.5-5.1) 04/18/18 18:57 Chloride 104 mEq/L (98-107) 04/18/18 18:57 Carbon Dioxide 25.8 mEq/L (21.0-31.0) 04/18/18 18:57 Anion Gap 13.3 (7.0-16.0) 04/18/18 18:57 BUN 16 mg/dL (7-25) 04/18/18 18:57 Creatinine 1.1 mg/dL (0.7-1.3) 04/18/18 18:57 Est GFR ( Amer) TNP 04/18/18 18:57 Est GFR (Non-Af Amer) TNP 04/18/18 18:57 BUN/Creatinine Ratio 14.5 04/18/18 18:57 Glucose 82 mg/dL (70-105) 04/18/18 18:57 Calcium 9.4 mg/dL (8.6-10.3) 04/18/18 18:57 Total Bilirubin 0.5 mg/dL (0.3-1.0) 04/18/18 18:57 AST 23 U/L (13-39) 04/18/18 18:57 ALT 20 U/L (7-52) 04/18/18 18:57 Alkaline Phosphatase 87 U/L (34-104) 04/18/18 18:57 Troponin I 0.01 ng/mL (0.01-0.05) 04/18/18 18:57 Total Protein 6.9 gm/dL (6.0-8.3) 04/18/18 18:57 Albumin 3.9 gm/dL (4.2-5.5) L 04/18/18 18:57 Globulin 3.0 gm/dL 04/18/18 18:57 Albumin/Globulin Ratio 1.3 (1.0-1.8) 04/18/18 18:57 Triglycerides 62 mg/dL (<150) 04/18/18 18:57 Cholesterol 141 mg/dL (<200) 04/18/18 18:57 LDL Cholesterol Direct 87 mg/dL (75-193) 04/18/18 18:57 HDL Cholesterol 41 mg/dL (23-92) 04/18/18 18:57 TSH 1.91 uIU/ml (0.34-5.60) 04/18/18 18:57 Salicylates < 25.0 mg/L (30.0-100.0) L 04/18/18 18:57 Acetaminophen < 10.0 ug/mL (10.0-30.0) L 04/18/18 18:57 Ethyl Alcohol < 10 mg/dL (0-10) 04/18/18 18:57 RPR NONREACTIVE (NONREACTIVE) 04/18/18 18:57 - Physical Exam Vitals and I&O: Vital Signs Temp 97.8 F 04/23/18 14:00 Pulse 112 04/23/18 14:00 Resp 20 04/23/18 14:00 BP 126/76 04/23/18 14:00 Pulse Ox 96 04/23/18 14:00 Intake & Output 04/23/18 04/23/18 04/24/18 06:59 18:59 06:59 Intake Total 1400 Balance 1400 Intake: Oral 1400 Other: # Voids 3 # Bowel Movements 0 Stool Characteristics Soft Active Medications: Current Medications Acetaminophen (Tylenol) 650 mg PO Q4HR PRN PRN Reason: Mild Pain / Temp above 100 Stop: 06/17/18 21:59 Al Hydrox/Mg Hydrox/Simethicone (Maalox) 30 ml PO Q4HR PRN PRN Reason: GI DISTRESS Stop: 06/17/18 21:59 Aspirin (Ecotrin) 81 mg PO DAILY [facility] Stop: 06/18/18 08:59 Last Admin: 04/23/18 08:49 Dose: 81 mg Atorvastatin Calcium (Lipitor) 10 mg PO DAILY [facility]; Protocol Stop: 06/18/18 08:59 Last Admin: 04/23/18 08:54 Dose: 10 mg Cyanocobalamin (Vitamin B12) 1,000 mcg IM QMONTH [facility] Stop: 06/18/18 08:59 Last Admin: 04/19/18 08:32 Dose: 1,000 mcg Donepezil HCl (Aricept) 5 mg PO HS [facility] Stop: 06/19/18 20:59 Last Admin: 04/22/18 20:43 Dose: 5 mg Doxazosin Mesylate (Cardura) 2 mg PO HS [facility] Stop: 06/18/18 20:59 Last Admin: 04/22/18 20:43 Dose: 2 mg Fexofenadine HCl (Noemi) 60 mg PO BID [facility] Stop: 06/18/18 08:59 Last Admin: 04/23/18 17:00 Dose: 60 mg Lorazepam (Ativan) 0.5 mg PO Q4HR PRN; Protocol PRN Reason: Anxiety Stop: 05/18/18 21:59 Last Admin: 04/22/18 20:43 Dose: 0.5 mg Magnesium Hydroxide (Milk Of Magnesia) 30 ml PO HS PRN PRN Reason: Constipation Memantine (Namenda) 5 mg PO DAILY [facility] Stop: 06/20/18 08:59 Last Admin: 04/23/18 08:49 Dose: 5 mg Multivitamins/Vitamin C (Theragran) 1 tab PO DAILY [facility] Stop: 06/18/18 08:59 Last Admin: 04/23/18 08:49 Dose: 1 tab Pantoprazole Sodium (Protonix) 40 mg PO DAILY@0730 [facility] Stop: 06/18/18 07:29 Last Admin: 04/23/18 06:43 Dose: 40 mg Quetiapine Fumarate (Seroquel) 200 mg PO BID [facility]; Protocol Stop: 06/18/18 08:59 Last Admin: 04/23/18 17:00 Dose: 200 mg Zolpidem Tartrate (Ambien) 5 mg PO HS PRN PRN Reason: Insomnia Stop: 06/17/18 21:59 General: alert, demented HEENT: NC/AT, PERRLA, anicteric sclerae, throat clear Neck: Supple, No JVD, No thyromegaly, +2 carotid pulse wo bruit, No LAD Lungs: CTAB Cardiovascular: RRR, Normal S1, Normal S2, without murmur Abdomen: soft, non-tender, non-distended Extremities: clear Neurological: no change Internal Medicine Assmt/Plan - Assessment Assessment: 1.HTN. 2.BPH. 3.HYPERLIPIDEMIA. 4.DEMENTIA. 5.PSYCHOSIS. - Plan Plan: CONTINUE ON CURRENT MEDICATION AND DIET.
[2018-04-24] MEDS: Pantoprazole 40 mg EC Tab PO SCH (06:51)
[2018-04-24] MEDS: Multivitamin Tab PO SCH (09:29)
[2018-04-24] MEDS: Atorvastatin Calcium 10 MG TAB PO SCH (09:29)
[2018-04-24] MEDS: Fexofenadine 60 mg Tab PO SCH ×2 (09:33→17:50)
--- NOTE | 2018-04-24 21:09 | Internal Medicine Prog Note ---
Internal Medicine Subjective - Subjective Service Date: 04/24/18 Patient seen and examined:: without staff Patient is:: awake, verbal, in bed, talking, confused Per staff patient has:: no adverse event Internal Medicine Objective - Results Result Diagrams: 04/18/18 18:57 04/18/18 18:57 Recent Labs: Laboratory Last Values WBC 5.2 Th/cmm (4.8-10.8) 04/18/18 18:57 RBC 4.46 Mil/cmm (3.80-5.80) 04/18/18 18:57 Hgb 14.6 gm/dL (12-16) 04/18/18 18:57 Hct 43.8 % (41.0-60) 04/18/18 18:57 MCV 98.2 fl (80-99) 04/18/18 18:57 MCH 32.8 pg (27.0-31.0) H 04/18/18 18:57 MCHC Differential 33.4 pg (28.0-36.0) 04/18/18 18:57 RDW 12.5 % (11.5-20.0) 04/18/18 18:57 Plt Count 197 Th/cmm (150-400) 04/18/18 18:57 MPV 8.4 fl 04/18/18 18:57 Neutrophils % 63.1 % (40.0-80.0) 04/18/18 18:57 Lymphocytes % 21.1 % (20.0-50.0) 04/18/18 18:57 Monocytes % 11.3 % (2.0-10.0) H 04/18/18 18:57 Eosinophils % 4.1 % (0.0-5.0) 04/18/18 18:57 Basophils % 0.4 % (0.0-2.0) 04/18/18 18:57 Sodium 139 mEq/L (136-145) 04/18/18 18:57 Potassium 4.1 mEq/L (3.5-5.1) 04/18/18 18:57 Chloride 104 mEq/L (98-107) 04/18/18 18:57 Carbon Dioxide 25.8 mEq/L (21.0-31.0) 04/18/18 18:57 Anion Gap 13.3 (7.0-16.0) 04/18/18 18:57 BUN 16 mg/dL (7-25) 04/18/18 18:57 Creatinine 1.1 mg/dL (0.7-1.3) 04/18/18 18:57 Est GFR ( Amer) TNP 04/18/18 18:57 Est GFR (Non-Af Amer) TNP 04/18/18 18:57 BUN/Creatinine Ratio 14.5 04/18/18 18:57 Glucose 82 mg/dL (70-105) 04/18/18 18:57 Calcium 9.4 mg/dL (8.6-10.3) 04/18/18 18:57 Total Bilirubin 0.5 mg/dL (0.3-1.0) 04/18/18 18:57 AST 23 U/L (13-39) 04/18/18 18:57 ALT 20 U/L (7-52) 04/18/18 18:57 Alkaline Phosphatase 87 U/L (34-104) 04/18/18 18:57 Troponin I 0.01 ng/mL (0.01-0.05) 04/18/18 18:57 Total Protein 6.9 gm/dL (6.0-8.3) 04/18/18 18:57 Albumin 3.9 gm/dL (4.2-5.5) L 04/18/18 18:57 Globulin 3.0 gm/dL 04/18/18 18:57 Albumin/Globulin Ratio 1.3 (1.0-1.8) 04/18/18 18:57 Triglycerides 62 mg/dL (<150) 04/18/18 18:57 Cholesterol 141 mg/dL (<200) 04/18/18 18:57 LDL Cholesterol Direct 87 mg/dL (75-193) 04/18/18 18:57 HDL Cholesterol 41 mg/dL (23-92) 04/18/18 18:57 TSH 1.91 uIU/ml (0.34-5.60) 04/18/18 18:57 Salicylates < 25.0 mg/L (30.0-100.0) L 04/18/18 18:57 Acetaminophen < 10.0 ug/mL (10.0-30.0) L 04/18/18 18:57 Ethyl Alcohol < 10 mg/dL (0-10) 04/18/18 18:57 RPR NONREACTIVE (NONREACTIVE) 04/18/18 18:57 - Physical Exam Vitals and I&O: Vital Signs Temp 97.8 F 04/24/18 20:18 Pulse 94 04/24/18 20:18 Resp 19 04/24/18 20:18 BP 143/79 04/24/18 20:18 Pulse Ox 98 04/24/18 20:18 Intake & Output 04/24/18 04/24/18 04/25/18 06:59 18:59 06:59 Intake Total 700 120 Balance 700 120 Intake: Oral 700 120 Other: # Voids 3 1 # Bowel Movements 0 0 Active Medications: Current Medications Acetaminophen (Tylenol) 650 mg PO Q4HR PRN PRN Reason: Mild Pain / Temp above 100 Stop: 06/17/18 21:59 Al Hydrox/Mg Hydrox/Simethicone (Maalox) 30 ml PO Q4HR PRN PRN Reason: GI DISTRESS Stop: 06/17/18 21:59 Aspirin (Ecotrin) 81 mg PO DAILY [facility] Stop: 06/18/18 08:59 Last Admin: 04/24/18 09:29 Dose: 81 mg Atorvastatin Calcium (Lipitor) 10 mg PO DAILY [facility]; Protocol Stop: 06/18/18 08:59 Last Admin: 04/24/18 09:29 Dose: 10 mg Cyanocobalamin (Vitamin B12) 1,000 mcg IM QMONTH [facility] Stop: 06/18/18 08:59 Last Admin: 04/19/18 08:32 Dose: 1,000 mcg Donepezil HCl (Aricept) 5 mg PO HS [facility] Stop: 06/19/18 20:59 Last Admin: 04/23/18 21:22 Dose: Not Given Doxazosin Mesylate (Cardura) 2 mg PO HS [facility] Stop: 06/18/18 20:59 Last Admin: 04/23/18 21:22 Dose: Not Given Fexofenadine HCl (Noemi) 60 mg PO BID [facility] Stop: 06/18/18 08:59 Last Admin: 04/24/18 17:50 Dose: Not Given Lorazepam (Ativan) 0.5 mg PO Q4HR PRN; Protocol PRN Reason: Anxiety Stop: 05/18/18 21:59 Last Admin: 04/22/18 20:43 Dose: 0.5 mg Magnesium Hydroxide (Milk Of Magnesia) 30 ml PO HS PRN PRN Reason: Constipation Memantine (Namenda) 5 mg PO DAILY [facility] Stop: 06/20/18 08:59 Last Admin: 04/24/18 09:29 Dose: 5 mg Multivitamins/Vitamin C (Theragran) 1 tab PO DAILY [facility] Stop: 06/18/18 08:59 Last Admin: 04/24/18 09:29 Dose: 1 tab Pantoprazole Sodium (Protonix) 40 mg PO DAILY@0730 [facility] Stop: 06/18/18 07:29 Last Admin: 04/24/18 06:51 Dose: 40 mg Quetiapine Fumarate (Seroquel) 200 mg PO BID [facility]; Protocol Stop: 06/18/18 08:59 Last Admin: 04/24/18 17:50 Dose: Not Given Zolpidem Tartrate (Ambien) 5 mg PO HS PRN PRN Reason: Insomnia Stop: 06/17/18 21:59 General: alert, demented HEENT: NC/AT, PERRLA, anicteric sclerae, throat clear Neck: Supple, No JVD, No thyromegaly, +2 carotid pulse wo bruit, No LAD Lungs: CTAB Cardiovascular: RRR, Normal S1, Normal S2, without murmur Abdomen: soft, non-tender, non-distended Extremities: clear Neurological: no change Internal Medicine Assmt/Plan - Assessment Assessment: 1.HTN. 2.BPH. 3.HYPERLIPIDEMIA. 4.DEMENTIA. 5.PSYCHOSIS. - Plan Plan: CONTINUE ON CURRENT MEDICATION AND DIET. Nutritional Asmnt/Malnutr-PDOC - Dietary Evaluation Malnutrition Findings (Please click <Entered> for more info): Nutritional Asmnt/Malnutrition Start: 04/24/18 15: 41 Text: Status: Complete Freq: Protocol: Document 04/24/18 15:41 BRENNA (Rec: 04/24/18 15:54 BRENNA [email or web address]) Nutritional Asmnt/Malnutrition Patient General Information Nutritional Screening Low Risk Diagnosis psychosis Pertinent Medical Hx/Surgical Hx dementia, HTN, benign prostatic hypertrophy, hyperlipidemia, psychosis, arthritis, bipolar Subjective Information Pt eating lunch in hallway at time of visit. Pt was seen to have finished 90-100% of lunch today. Pt states his food is good and has no preferences. Nursing noted PO intake: 50-75 %. Current Diet Order/ Nutrition Support regular Pertinent Medications maalox, lipitor, Vit B12, MOM, theragran, protonix, seroquel Pertinent Labs 04/18: Alb 3.9 Nutritional Hx/Data Height 1.73 m Height (Calculated Centimeters) 172.7 Current Weight (lbs) 76.113 kg Weight (Calculated Kilograms) 76.1 Weight (Calculated Grams) 72412.8 [place] Body Weight 154 lb Body Mass Index (BMI) 25.4 Weight Status Overweight GI Symptoms GI Symptoms None Last BM 04/22 Difficult in: None Food Allergies No Skin Integrity/Comment: intact, yosi 19 Current %PO Fair (50-74%) Estimated Nutritional Goals BEE in Kcals: Using Current wt Calories/Kcals/Kg 23-27 Kcals Calculated [id number] Protein: Using Current wt Protein g/k.0 Protein Calculated 76 g Fluid: ml [id number] (1 ml/kcal) Nutritional Problem No current Nutrition Prob Problem no nutrition dx at this time Malnutrition Alert Is there a minimum of two criteria No selected? Query Text:Check all the applicable criteria. A minimum of two criteria are recommended for diagnosis of either severe or non-severe malnutrition. Malnutrition Related to Morbid Obesity Malnutrition related to morbid obesity No Intervention/Recommendation Comments 1. Continue with regular diet as ordered 2. Encourage pt to eat and assist w/ meals as needed 3. Monitor PO intake, wt, labs and skin integrity 4. F/U as low risk in 7 days, 05/01; PO check 04/26 Expected Outcomes/Goals Expected Outcomes/Goals 1. PO intake to meet at least 75% of all meals 2. Wt stability, skin to remain intact, and nutrition related labs to approach normal limits Reviewed by Lilliam Schwarz RD
[2018-04-25] MEDS: Pantoprazole 40 mg EC Tab PO SCH (06:31)
[2018-04-25] MEDS: Atorvastatin Calcium 10 MG TAB PO SCH (09:20)
[2018-04-25] MEDS: Fexofenadine 60 mg Tab PO SCH ×2 (09:20→16:36)
[2018-04-25] MEDS: Multivitamin Tab PO SCH (09:21)
--- NOTE | 2018-04-25 20:37 | Internal Medicine Prog Note ---
Internal Medicine Subjective - Subjective Service Date: 04/25/18 Patient seen and examined:: with staff Patient is:: awake, verbal, in bed, talking, confused Per staff patient has:: no adverse event Internal Medicine Objective - Results Result Diagrams: 04/18/18 18:57 04/18/18 18:57 Recent Labs: Laboratory Last Values WBC 5.2 Th/cmm (4.8-10.8) 04/18/18 18:57 RBC 4.46 Mil/cmm (3.80-5.80) 04/18/18 18:57 Hgb 14.6 gm/dL (12-16) 04/18/18 18:57 Hct 43.8 % (41.0-60) 04/18/18 18:57 MCV 98.2 fl (80-99) 04/18/18 18:57 MCH 32.8 pg (27.0-31.0) H 04/18/18 18:57 MCHC Differential 33.4 pg (28.0-36.0) 04/18/18 18:57 RDW 12.5 % (11.5-20.0) 04/18/18 18:57 Plt Count 197 Th/cmm (150-400) 04/18/18 18:57 MPV 8.4 fl 04/18/18 18:57 Neutrophils % 63.1 % (40.0-80.0) 04/18/18 18:57 Lymphocytes % 21.1 % (20.0-50.0) 04/18/18 18:57 Monocytes % 11.3 % (2.0-10.0) H 04/18/18 18:57 Eosinophils % 4.1 % (0.0-5.0) 04/18/18 18:57 Basophils % 0.4 % (0.0-2.0) 04/18/18 18:57 Sodium 139 mEq/L (136-145) 04/18/18 18:57 Potassium 4.1 mEq/L (3.5-5.1) 04/18/18 18:57 Chloride 104 mEq/L (98-107) 04/18/18 18:57 Carbon Dioxide 25.8 mEq/L (21.0-31.0) 04/18/18 18:57 Anion Gap 13.3 (7.0-16.0) 04/18/18 18:57 BUN 16 mg/dL (7-25) 04/18/18 18:57 Creatinine 1.1 mg/dL (0.7-1.3) 04/18/18 18:57 Est GFR ( Amer) TNP 04/18/18 18:57 Est GFR (Non-Af Amer) TNP 04/18/18 18:57 BUN/Creatinine Ratio 14.5 04/18/18 18:57 Glucose 82 mg/dL (70-105) 04/18/18 18:57 Calcium 9.4 mg/dL (8.6-10.3) 04/18/18 18:57 Total Bilirubin 0.5 mg/dL (0.3-1.0) 04/18/18 18:57 AST 23 U/L (13-39) 04/18/18 18:57 ALT 20 U/L (7-52) 04/18/18 18:57 Alkaline Phosphatase 87 U/L (34-104) 04/18/18 18:57 Troponin I 0.01 ng/mL (0.01-0.05) 04/18/18 18:57 Total Protein 6.9 gm/dL (6.0-8.3) 04/18/18 18:57 Albumin 3.9 gm/dL (4.2-5.5) L 04/18/18 18:57 Globulin 3.0 gm/dL 04/18/18 18:57 Albumin/Globulin Ratio 1.3 (1.0-1.8) 04/18/18 18:57 Triglycerides 62 mg/dL (<150) 04/18/18 18:57 Cholesterol 141 mg/dL (<200) 04/18/18 18:57 LDL Cholesterol Direct 87 mg/dL (75-193) 04/18/18 18:57 HDL Cholesterol 41 mg/dL (23-92) 04/18/18 18:57 TSH 1.91 uIU/ml (0.34-5.60) 04/18/18 18:57 Salicylates < 25.0 mg/L (30.0-100.0) L 04/18/18 18:57 Acetaminophen < 10.0 ug/mL (10.0-30.0) L 04/18/18 18:57 Ethyl Alcohol < 10 mg/dL (0-10) 04/18/18 18:57 RPR NONREACTIVE (NONREACTIVE) 04/18/18 18:57 - Physical Exam Vitals and I&O: Vital Signs Temp 97.9 F 04/25/18 19:59 Pulse 83 04/25/18 19:59 Resp 20 04/25/18 19:59 BP 122/67 04/25/18 19:59 Pulse Ox 99 04/25/18 19:59 Intake & Output 04/25/18 04/25/18 04/26/18 06:59 18:59 06:59 Intake Total 120 240 Balance 120 240 Intake: Oral 120 240 Other: # Voids 1 2 # Bowel Movements 0 Active Medications: Current Medications Acetaminophen (Tylenol) 650 mg PO Q4HR PRN PRN Reason: Mild Pain / Temp above 100 Stop: 06/17/18 21:59 Al Hydrox/Mg Hydrox/Simethicone (Maalox) 30 ml PO Q4HR PRN PRN Reason: GI DISTRESS Stop: 06/17/18 21:59 Aspirin (Ecotrin) 81 mg PO DAILY [facility] Stop: 06/18/18 08:59 Last Admin: 04/25/18 09:20 Dose: Not Given Atorvastatin Calcium (Lipitor) 10 mg PO DAILY [facility]; Protocol Stop: 06/18/18 08:59 Last Admin: 04/25/18 09:20 Dose: Not Given Cyanocobalamin (Vitamin B12) 1,000 mcg IM QMONTH [facility] Stop: 06/18/18 08:59 Last Admin: 04/19/18 08:32 Dose: 1,000 mcg Donepezil HCl (Aricept) 5 mg PO HS [facility] Stop: 06/19/18 20:59 Last Admin: 04/24/18 21:39 Dose: Not Given Doxazosin Mesylate (Cardura) 2 mg PO HS [facility] Stop: 06/18/18 20:59 Last Admin: 04/24/18 21:39 Dose: Not Given Fexofenadine HCl (Noemi) 60 mg PO BID [facility] Stop: 06/18/18 08:59 Last Admin: 04/25/18 16:36 Dose: Not Given Lorazepam (Ativan) 0.5 mg PO Q4HR PRN; Protocol PRN Reason: Anxiety Stop: 05/18/18 21:59 Last Admin: 04/22/18 20:43 Dose: 0.5 mg Magnesium Hydroxide (Milk Of Magnesia) 30 ml PO HS PRN PRN Reason: Constipation Memantine (Namenda) 5 mg PO DAILY [facility] Stop: 06/20/18 08:59 Last Admin: 04/25/18 09:20 Dose: Not Given Multivitamins/Vitamin C (Theragran) 1 tab PO DAILY [facility] Stop: 06/18/18 08:59 Last Admin: 04/25/18 09:21 Dose: Not Given Pantoprazole Sodium (Protonix) 40 mg PO DAILY@0730 [facility] Stop: 06/18/18 07:29 Last Admin: 04/25/18 06:31 Dose: 40 mg Quetiapine Fumarate (Seroquel) 200 mg PO BID [facility]; Protocol Stop: 06/18/18 08:59 Last Admin: 04/25/18 16:36 Dose: Not Given Zolpidem Tartrate (Ambien) 5 mg PO HS PRN PRN Reason: Insomnia Stop: 06/17/18 21:59 General: alert, demented HEENT: NC/AT, PERRLA, anicteric sclerae, throat clear Neck: Supple, No JVD, No thyromegaly, +2 carotid pulse wo bruit, No LAD Lungs: CTAB Cardiovascular: RRR, Normal S1, Normal S2, without murmur Abdomen: soft, non-tender, non-distended Extremities: clear Neurological: no change Internal Medicine Assmt/Plan - Assessment Assessment: 1.HTN. 2.BPH. 3.HYPERLIPIDEMIA. 4.DEMENTIA. 5.PSYCHOSIS. - Plan Plan: CONTINUE ON CURRENT MEDICATION AND DIET. Nutritional Asmnt/Malnutr-PDOC - Dietary Evaluation Malnutrition Findings (Please click <Entered> for more info): Nutritional Asmnt/Malnutrition Start: 04/24/18 15: 41 Text: Status: Complete Freq: Protocol: Document 04/24/18 15:41 BRENNA (Rec: 04/24/18 15:54 BRENNA [email or web address]) Nutritional Asmnt/Malnutrition Patient General Information Nutritional Screening Low Risk Diagnosis psychosis Pertinent Medical Hx/Surgical Hx dementia, HTN, benign prostatic hypertrophy, hyperlipidemia, psychosis, arthritis, bipolar Subjective Information Pt eating lunch in hallway at time of visit. Pt was seen to have finished 90-100% of lunch today. Pt states his food is good and has no preferences. Nursing noted PO intake: 50-75 %. Current Diet Order/ Nutrition Support regular Pertinent Medications maalox, lipitor, Vit B12, MOM, theragran, protonix, seroquel Pertinent Labs 04/18: Alb 3.9 Nutritional Hx/Data Height 1.73 m Height (Calculated Centimeters) 172.7 Current Weight (lbs) 76.113 kg Weight (Calculated Kilograms) 76.1 Weight (Calculated Grams) 83969.8 [place] Body Weight 154 lb Body Mass Index (BMI) 25.4 Weight Status Overweight GI Symptoms GI Symptoms None Last BM 04/22 Difficult in: None Food Allergies No Skin Integrity/Comment: intact, yosi 19 Current %PO Fair (50-74%) Estimated Nutritional Goals BEE in Kcals: Using Current wt Calories/Kcals/Kg 23-27 Kcals Calculated 3866-8881 Protein: Using Current wt Protein g/k.0 Protein Calculated 76 g Fluid: ml 7490-3906 (1 ml/kcal) Nutritional Problem No current Nutrition Prob Problem no nutrition dx at this time Malnutrition Alert Is there a minimum of two criteria No selected? Query Text:Check all the applicable criteria. A minimum of two criteria are recommended for diagnosis of either severe or non-severe malnutrition. Malnutrition Related to Morbid Obesity Malnutrition related to morbid obesity No Intervention/Recommendation Comments 1. Continue with regular diet as ordered 2. Encourage pt to eat and assist w/ meals as needed 3. Monitor PO intake, wt, labs and skin integrity 4. F/U as low risk in 7 days, 05/01; PO check 04/26 Expected Outcomes/Goals Expected Outcomes/Goals 1. PO intake to meet at least 75% of all meals 2. Wt stability, skin to remain intact, and nutrition related labs to approach normal limits Reviewed by Lilliam Schwarz RD
--- NOTE | 2018-04-26 03:46 | Progress Notes ---
DATE: 04/25/2018 SUBJECTIVE: The patient is currently in the hospital. Slept for about 8-9 hours. Poorly oriented, confused, unpredictable mood, seems preoccupied, easily agitated, disorganized, somewhat guarded, suspicious, poor medication compliance; however, no agitation, no escalation of behaviors. No voices. No overt evidence of psychosis, other than mild suspicions. He is not hurting anybody. He is not dangerous at this time. He seems to be following any rules and directions, just very confused, advanced dementia. PLAN: We will continue to monitor. The patient will likely benefit from ongoing psychiatric treatment, although he is likely approaching his baseline. JOB# [id number]
--- NOTE | 2018-04-26 04:53 | Progress Notes ---
DATE: 04/24/2018 SUBJECTIVE: The patient remains confused, disoriented, wandering into other patients' rooms, impulsive, unpredictable, seemingly calmer. No agitation, no escalation of behaviors. Still sometimes sitting in a Zoie chair, but less, easily triggered but not lashing out, poor medication compliance, he does not know where he is or why he is here. MENTAL STATUS EXAMINATION: Stated age, calm, cooperative, confused. PLAN: We will continue to monitor. We will encourage better med compliance. JOB# [id number]
[2018-04-26] MEDS: Pantoprazole 40 mg EC Tab PO SCH (06:45)
[2018-04-26] MEDS: Atorvastatin Calcium 10 MG TAB PO SCH (08:52)
[2018-04-26] MEDS: Multivitamin Tab PO SCH (08:52)
[2018-04-26] MEDS: Fexofenadine 60 mg Tab PO SCH (08:52)
--- NOTE | 2018-04-27 04:56 | Discharge Summary ---
DATE OF DISCHARGE: 04/26/2018 JUSTIFICATION FOR HOSPITALIZATION: Odd behaviors, unable to be redirected. HISTORY OF PRESENT ILLNESS: An 82-year-old male, AO to name only, very confused, disoriented, has no idea where he is and what is going on. He had been unruly, disrobing, wandering into other patients' rooms, could not be controlled at a lower level of care, erratic med compliance, clearly demented, confused, disoriented. PAST PSYCHIATRIC HISTORY: Advanced dementia. FAMILY HISTORY: Noncontributory. SOCIAL HISTORY: The patient had been residing at a detention in [place]. MEDICATIONS: Noted. MENTAL STATUS EXAMINATION: Please see full psych eval for details. PROVISIONAL DIAGNOSIS: Advanced dementia, mood unspecified, anxiety unspecified, psychosis unspecified. Medical: Please see full H and P. HOSPITAL COURSE: After initial assessment, the patient was started on medications, however he did not want to take them. However, over the course of the hospitalization, he improved, he was much calmer, no behavioral disturbances. No longer responding to internal stimulation. Doing well in the group and the milieu. Fairly redirectable. I did consider a Riese petition, however there were no real behaviors to treat. The patient was exhibiting behaviors consistent with advanced dementia, namely confusion, disorientation, wandering behaviors but he was not combative. He was not lashing out. Through the latter end of the hospitalization, he was very calm, cooperative, staff noting no behaviors other than refusal of medications. On 04/26/2018, he stepped down to a lower level of care. CONDITION UPON DISCHARGE: Improved. Allowing ADLs. Fair eye contact. Speech, decreased content. AO to name. Mood "okay." Affect flat. Thought processes were disoriented. No SI, no HI. Denying any voices or paranoia. Insight and judgment diminished. PROVISIONAL DIAGNOSES: Advanced dementia, anxiety unspecified. Medical: Please see full H and P. PROGNOSIS: The patient follows up with outpatient mental health services. Prognosis will improve, otherwise guarded. In regards to medications, I felt that a Riese petition could also place the patient at undue risk of side effects given advanced dementia, the risks seemed to outweigh benefits. JOB# [id number]
== END 2018-04-26 14:15 | DRG 885 ==
LOC: ER 17:50 → GERO 20:01
PROVIDERS: ADMIT Psychiatry & Neurology Psychiatry; ATTEND Psychiatry & Neurology Psychiatry
DX: F20.9 Schizophrenia, unspecified (principal); F03.90 Unspecified dementia, unspecified severity, without behavioral disturbance, psychotic disturbance, mood disturbance, and anxiety; I10 Essential (primary) hypertension; E78.5 Hyperlipidemia, unspecified; N40.0 Benign prostatic hyperplasia without lower urinary tract symptoms; F41.9 Anxiety disorder, unspecified; M19.90 Unspecified osteoarthritis, unspecified site; F29 Unspecified psychosis not due to a substance or known physiological condition; F39 Unspecified mood [affective] disorder; Z82.49 Family history of ischemic heart disease and other diseases of the circulatory system
CPT/HCPCS: 36415-UA; 80053-TC; 80061-TC; 80320-TC; 80329-TC; 83036-90; 84443-TC; 84484-TC; 85025-TC; 86592-TC; 93005; J3420; Z7610

== ENCOUNTER 2018-09-12 23:41 | Inpatient (IN) | payer MEDICARE, MEDICAID ==
[2018-09-13 00:45] LABS: % MONOCYTES 9.1 % (2.0-10.0); EOSINOPHILE ABSOLUTE 0.3 Th/cmm (0.1-0.4); HEMOGLOBIN 13.1 gm/dL (12-16); MONOCYTE ABSOLUTE 0.5 Th/cmm (0.3-1.0); NEUTROPHILE ABSOLUTE 3.7 Th/cmm (1.8-8.0)
[2018-09-13 00:47] LABS: % BASOPHILS 0.2 % (0.0-2.0); % EOSINOPHILS 4.7 % (0.0-5.0); MEAN CELL VOLUME 98.1 fl (80-99); MEAN CORPUSCULAR HEMOGLOBIN 32.8 pg (27.0-31.0); MEAN CORPUSCULAR HGB CONC 33.5 pg (28.0-36.0); MEAN PLATELET VOLUME 8.5 fl; PLATELET COUNT 177 Th/cmm (150-400); RED BLOOD COUNT 3.97 Mil/cmm (3.80-5.80); RED CELL DISTRIBUTION WIDTH 13.1 % (11.5-20.0); WHITE BLOOD COUNT 5.5 Th/cmm (4.8-10.8)
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
[2018-09-13 01:00] LABS: ALB/GLOB RATIO 1.4 (1.0-1.8); ALKALINE PHOSPHATASE 81 U/L (34-104); ANION GAP 13.1 (7.0-16.0); BILIRUBIN,TOTAL 0.5 mg/dL (0.3-1.0); BUN - UREA NITROGEN 16 mg/dL (7-25); CALCIUM SERUM 9.5 mg/dL (8.6-10.3); CARBON DIOXIDE 25.7 mEq/L (21.0-31.0); CHLORIDE 106 mEq/L (98-107); CREATININE - SERUM 1.1 mg/dL (0.7-1.3); GLUCOSE 91 mg/dL (70-105); POTASSIUM SERUM 3.8 mEq/L (3.5-5.1); SGOT 19 U/L (13-39); SGPT/ALT 16 U/L (7-52); SODIUM SERUM 141 mEq/L (136-145); TOTAL PROTEIN,SERUM 6.8 gm/dL (6.0-8.3)
[2018-09-13 02:01] VITALS: BP 136/61
[2018-09-13] MEDS ORDERED: Magnesium Hydroxide (MOM) 30 mL UDC PO PRN ×2 (02:02→23:13)
[2018-09-13] MEDS ORDERED: Maalox 30 mL Cup PO PRN ×2 (02:02→23:13)
[2018-09-13] MEDS ORDERED: Fleet Enema 135 mL RC PRN (02:09)
[2018-09-13] MEDS: Pantoprazole 40 mg EC Tab PO SCH (06:32)
--- NOTE | 2018-09-13 08:50 | Diagnostic Imaging Report ---
CHEST X-RAY: AP view INDICATION: Shortness of breath COMPARISON: None FINDINGS: Suboptimal lung volumes are seen with increased bilateral infrahilar markings. No focal consolidation or pleural effusions. Borderline prominent heart is noted with atherosclerosis. Degenerative changes of the spine are noted. IMPRESSION: Suboptimal lung volumes with increased bilateral infrahilar lung markings. Findings favor atelectatic changes. Infiltrate is less likely. No focal consolidation identified.
[2018-09-13] MEDS: Atorvastatin Calcium 10 MG TAB PO SCH ×3 (09:22→09:32)
[2018-09-13] MEDS: Multivitamin Tab PO SCH ×3 (09:23→09:32)
[2018-09-13] MEDS: Fexofenadine 60 mg Tab PO SCH ×2 (09:26→17:26)
[2018-09-13 10:17] LABS: CHOLESTEROL 114 mg/dL (<200); HDL -HIGH DENSITY LIPOPROTEIN 47 mg/dL (23-92); TRIGLYCERIDES 47 mg/dL (<150)
[2018-09-13 20:58] LABS: URINE BILIRUBIN NEGATIVE (NEGATIVE); URINE BLOOD NEGATIVE (NEGATIVE); URINE GLUCOSE (UA) NEGATIVE (NEGATIVE); URINE KETONE TRACE mg/dL (NEGATIVE); URINE LEUKOCYTE ESTERASE TRACE (NEGATIVE); URINE MICROSCOPIC INDICATED? YES; URINE NITRATE NEGATIVE (NEGATIVE); URINE PROTEIN NEGATIVE (NEGATIVE); URINE SOURCE MIDSTREAM
[2018-09-13 21:21] LABS: URINE CLARITY CLEAR (CLEAR); URINE COLOR YELLOW
[2018-09-13 21:22] LABS: URINE BACTERIA 1+ /hpf (NONE SEEN); URINE EPITHELIAL CELLS FEW /lpf (FEW); URINE RBC 0-2 /hpf (0-5)
--- NOTE | 2018-09-14 01:12 | History & Physical ---
ADMIT DATE: HISTORY OF PRESENT ILLNESS: The patient is an 83-year-old male with long history of dementia, psychosis, degenerative joint disease, chronic constipation, admitted to [facility] for evaluation and treatment. The patient admitted to Dr. Powers's service. No fever, no nausea, no vomiting, no dysuria, no hematuria. PAST MEDICAL HISTORY: Significant for hypertension, chronic constipation, dementia, psychosis, benign prostatic hypertrophy. PAST SURGICAL HISTORY: No recent surgery. ALLERGIES: None. MEDICATIONS: Follow admission reconciliation. SOCIAL HISTORY: No smoking, no alcohol, no drugs. FAMILY HISTORY: Noncontributory. REVIEW OF SYSTEMS: IMMUNO SYSTEM: No history of chronic immune disorder. CARDIOVASCULAR SYSTEM: No coronary artery disease. ENDOCRINE SYSTEM: No diabetes or thyroid problem. GASTROINTESTINAL SYSTEM: No upper or lower gastrointestinal bleed. NEUROLOGICAL SYSTEM: No seizure disorder. SKELETOMUSCULAR SYSTEM: No muscular dystrophy. HEMATOLOGIC SYSTEM: No bleeding tendencies. RESPIRATORY SYSTEM: No asthma. GENITOURINARY SYSTEM: History of benign prostatic hypertrophy. PHYSICAL EXAMINATION: GENERAL: He is awake, alert, confused. VITAL SIGNS: Temperature 97.3, heart rate 85, blood pressure 125/78. HEENT: Normocephalic. Pupils reacting to light and accommodation. Sclerae clear. NECK: Supple. Negative for lymphadenopathy, JVD, or bruit. CHEST: Entry of air bilateral normal. No rhonchi or wheezing. HEART: S1, S2 normal. No gallop rhythm. ABDOMEN: Soft, bowel sounds positive. EXTREMITIES: No edema. NEUROLOGIC: He is awake, not coherent. LABORATORY DATA: White blood 5.5, hemoglobin 13.1, hematocrit 39.0, platelets 177. Sodium 141, potassium 3.8, BUN 16, creatinine 1.1. ASSESSMENT: 1. Benign prostatic hypertrophy. 2. Degenerative joint disease. 3. Chronic constipation. 4. Dementia. 5. Psychosis. PLAN: The patient admitted to the hospital under Gio's service. Medical problem addressed during hospitalization is psychosis. Medical problems addressed at discharge, benign prostatic hypertrophy. The patient is medically stable for activity. Thank you, Dr. Powers, for asking us to see your patient.. The patient cleared for activity. JOB# [id number]
[2018-09-14] MEDS: Pantoprazole 40 mg EC Tab PO SCH (06:41)
[2018-09-14] MEDS ORDERED: Multivitamin Tab PO SCH (09:00)
[2018-09-14] MEDS: Atorvastatin Calcium 10 MG TAB PO SCH (09:12)
[2018-09-14] MEDS: Multivitamin Tab PO SCH (09:13)
[2018-09-14] MEDS: Fexofenadine 60 mg Tab PO SCH ×2 (09:14→17:17)
--- NOTE | 2018-09-14 12:36 | History & Physical ---
ADMIT DATE: 09/13/2018 IDENTIFYING INFORMATION: The patient is an 83-year-old male. HISTORY OF PRESENT ILLNESS: The patient was admitted from a nursing facility. He is demented, confused, acting out. He was a poor historian. When asked any question, his answer is I don't know. He is unpredictable, impulsive, looking disheveled. PAST PSYCHIATRIC HISTORY: Dementia, psychosis. The patient is unable to give much information. MEDICAL HISTORY: As per Dr. Albright. Has hypertension, chronic constipation, benign prostatic hypertrophy. ALLERGIES: The patient has no known drug allergies. MEDICATIONS: The patient has been on Namenda 5 mg daily, multivitamin and Seroquel 200 mg twice a day. FAMILY AND SOCIAL HISTORY: Unobtainable. MENTAL STATUS EXAMINATION: The patient is appropriately dressed, not very well groomed. He is unable to express himself, answered most questions by "I do not know." Unpredictable, impulsive, demented, confused. Long and short term memory is poor. When asked about suicide, homicide, he would not answer. When asked about any hallucination, he could not answer. His insight and judgment is impaired. IMPRESSION: Psychosis not otherwise specified, bipolar disorder, not otherwise specified, dementia. His assets, exceptionally negative poor coping. INITIAL TREATMENT PLAN: The patient will be continued on medication. We will do group therapy and milieu therapy. ESTIMATED LENGTH OF STAY: 3-7 days. DISCHARGE CRITERIA: If feeling better, no longer agitated after discharge. JOB# [id number]
--- NOTE | 2018-09-14 12:59 | Psychiatric Evaluation ---
DATE OF SERVICE: 09/13/2018 JUSTIFICATION FOR HOSPITALIZATION: Agitation, escalation of behaviors, unable to be cared for at a lower level of care. HISTORY OF PRESENT ILLNESS: An 83-year-old male coming from [facility]. I had seen this patient over at [facility] in the past, history of confusion, only knows his name. He does know the year, does not know the month, he does not know the date. He does not know where he is, stating that he is in "[place]." The patient stating that he lives here in the hospital, although he has no idea where he is. Loud at times, unruly, impulsive. PAST PSYCHIATRIC HISTORY: Schizophrenia per documentation. FAMILY HISTORY: Noncontributory. SOCIAL HISTORY: [facility], living in [place]. The patient states he was born in [place]. It is unclear if he is , although he does mention he has a daughter. MEDICATIONS: Noted. MENTAL STATUS EXAMINATION: Stated age. Fair eye contact. Speech loud, rambling at times. Mood "okay, I live here." Affect flat. Thought processes were confused. No overt SI or HI. No overt psychotic symptoms, but highly impulsive, unpredictable. PROVISIONAL DIAGNOSES: Schizophrenia per documentation, mood unspecified, anxiety unspecified. MEDICAL: Please see full H and P. ESTIMATED LENGTH OF STAY: 7-10 days. ASSESSMENT: The patient requiring hospitalization, unruly, agitated behaviors, aggressive behaviors, could not be cared for at a lower level of care, acting up behaviors. PLAN: Restart medications and titrate accordingly. We will make medication adjustments. Treatment plan includes group as well as milieu therapy. CONDITIONS FOR DISCHARGE: Improved mood, improved affect, better control of any agitation and aggressive behaviors. JOB# [id number]
--- NOTE | 2018-09-14 16:48 | Internal Medicine Prog Note ---
Internal Medicine Subjective - Subjective Service Date: 09/14/18 Patient seen and examined:: without staff Patient is:: awake, in bed, confused Per staff patient has:: no adverse event Internal Medicine Objective - Results Result Diagrams: 09/13/18 00:20 09/13/18 00:25 Recent Labs: Laboratory Last Values WBC 5.5 Th/cmm (4.8-10.8) 09/13/18 00:20 RBC 3.97 Mil/cmm (3.80-5.80) 09/13/18 00:20 Hgb 13.1 gm/dL (12-16) 09/13/18 00:20 Hct 39.0 % (41.0-60) L 09/13/18 00:20 MCV 98.1 fl (80-99) 09/13/18 00:20 MCH 32.8 pg (27.0-31.0) H 09/13/18 00:20 MCHC Differential 33.5 pg (28.0-36.0) 09/13/18 00:20 RDW 13.1 % (11.5-20.0) 09/13/18 00:20 Plt Count 177 Th/cmm (150-400) 09/13/18 00:20 MPV 8.5 fl 09/13/18 00:20 Neutrophils % 67.0 % (40.0-80.0) 09/13/18 00:20 Lymphocytes % 19.0 % (20.0-50.0) L 09/13/18 00:20 Monocytes % 9.1 % (2.0-10.0) 09/13/18 00:20 Eosinophils % 4.7 % (0.0-5.0) 09/13/18 00:20 Basophils % 0.2 % (0.0-2.0) 09/13/18 00:20 Sodium 141 mEq/L (136-145) 09/13/18 00:25 Potassium 3.8 mEq/L (3.5-5.1) 09/13/18 00:25 Chloride 106 mEq/L (98-107) 09/13/18 00:25 Carbon Dioxide 25.7 mEq/L (21.0-31.0) 09/13/18 00:25 Anion Gap 13.1 (7.0-16.0) 09/13/18 00:25 BUN 16 mg/dL (7-25) 09/13/18 00:25 Creatinine 1.1 mg/dL (0.7-1.3) 09/13/18 00:25 Est GFR ( Amer) TNP 09/13/18 00:25 Est GFR (Non-Af Amer) TNP 09/13/18 00:25 BUN/Creatinine Ratio 14.5 09/13/18 00:25 Glucose 91 mg/dL (70-105) 09/13/18 00:25 Calcium 9.5 mg/dL (8.6-10.3) 09/13/18 00:25 Total Bilirubin 0.5 mg/dL (0.3-1.0) 09/13/18 00:25 AST 19 U/L (13-39) 09/13/18 00:25 ALT 16 U/L (7-52) 09/13/18 00:25 Alkaline Phosphatase 81 U/L (34-104) 09/13/18 00:25 Troponin I 0.01 ng/mL (0.01-0.05) 09/13/18 00:25 B-Natriuretic Peptide < 5.0 pg/mL (5.0-100.0) L 09/13/18 00:25 Total Protein 6.8 gm/dL (6.0-8.3) 09/13/18 00:25 Albumin 4.0 gm/dL (4.2-5.5) L 09/13/18 00:25 Globulin 2.8 gm/dL 09/13/18 00:25 Albumin/Globulin Ratio 1.4 (1.0-1.8) 09/13/18 00:25 Triglycerides 47 mg/dL (<150) 09/13/18 00:20 Cholesterol 114 mg/dL (<200) 09/13/18 00:20 LDL Cholesterol Direct 59 mg/dL (75-193) L 09/13/18 00:20 HDL Cholesterol 47 mg/dL (23-92) 09/13/18 00:20 TSH 1.37 uIU/ml (0.34-5.60) 09/13/18 00:25 Urine Source MIDSTREAM 09/13/18 20:40 Urine Color YELLOW 09/13/18 20:40 Urine Clarity CLEAR (CLEAR) 09/13/18 20:40 Urine pH 6.0 (4.6 - 8.0) 09/13/18 20:40 Ur Specific [place] >= 1.030 (1.005-1.030) 09/13/18 20:40 Urine Protein NEGATIVE mg/dL (NEGATIVE) 09/13/18 20:40 Urine Glucose (UA) NEGATIVE mg/dL (NEGATIVE) 09/13/18 20:40 Urine Ketones TRACE mg/dL (NEGATIVE) 09/13/18 20:40 Urine Blood NEGATIVE (NEGATIVE) 09/13/18 20:40 Urine Nitrate NEGATIVE (NEGATIVE) 09/13/18 20:40 Urine Bilirubin NEGATIVE (NEGATIVE) 09/13/18 20:40 Urine Urobilinogen 1.0 E.U./dL (0.2 - 1.0) 09/13/18 20:40 Ur Leukocyte Esterase TRACE (NEGATIVE) H 09/13/18 20:40 Urine RBC 0-2 /hpf (0-5) H 09/13/18 20:40 Urine WBC 2-5 /hpf (0-5) 09/13/18 20:40 Ur Epithelial Cells FEW /lpf (FEW) 09/13/18 20:40 Urine Bacteria 1+ /hpf (NONE SEEN) H 09/13/18 20:40 Urine Mucus FEW /lpf (FEW) 09/13/18 20:40 - Physical Exam Vitals and I&O: Vital Signs Temp 97.3 F 09/13/18 21:20 Pulse 85 09/13/18 21:20 Resp 19 09/13/18 21:20 BP 125/78 09/13/18 21:20 Pulse Ox 100 09/13/18 21:20 Intake & Output 09/13/18 09/14/18 09/14/18 18:59 06:59 18:59 Intake Total 120 Balance 120 Intake: Oral 120 Active Medications: Current Medications Acetaminophen (Tylenol) 650 mg PO Q4HR PRN PRN Reason: Mild Pain / Temp above 100 Stop: 11/12/18 02:01 Al Hydrox/Mg Hydrox/Simethicone (Maalox) 30 ml PO Q4HR PRN PRN Reason: GI DISTRESS Stop: 11/12/18 02:01 Aspirin (Ecotrin) 81 mg PO DAILY [facility] Stop: 11/12/18 08:59 Last Admin: 09/14/18 09:13 Dose: 81 mg Atorvastatin Calcium (Lipitor) 10 mg PO DAILY [facility]; Protocol Stop: 11/12/18 08:59 Last Admin: 09/14/18 09:12 Dose: 10 mg Bisacodyl (Dulcolax 10 Mg Supp) 10 mg RC DAILY PRN PRN Reason: Constipation Stop: 11/12/18 23:12 Cyanocobalamin (Vitamin B12) 1,000 mcg IM QMONTH [facility] Stop: 10/12/18 10:01 Docusate Sodium (Colace) 100 mg PO DAILY [facility] Stop: 11/12/18 08:59 Last Admin: 09/14/18 09:12 Dose: 100 mg Donepezil HCl (Aricept) 5 mg PO HS [facility] Stop: 11/12/18 20:59 Last Admin: 09/13/18 20:22 Dose: 5 mg Doxazosin Mesylate (Cardura) 2 mg PO HS [facility] Stop: 11/12/18 20:59 Last Admin: 09/13/18 20:22 Dose: 2 mg Fexofenadine HCl (Noemi) 60 mg PO BID [facility] Stop: 11/12/18 08:59 Last Admin: 09/14/18 09:14 Dose: Not Given Lorazepam (Ativan) 0.5 mg PO Q4HR PRN; Protocol PRN Reason: Anxiety Stop: 10/13/18 02:01 Magnesium Hydroxide (Milk Of Magnesia) 30 ml PO HS PRN PRN Reason: Constipation Memantine (Namenda) 5 mg PO DAILY [facility] Stop: 11/12/18 08:59 Last Admin: 09/14/18 09:13 Dose: 5 mg Multivitamins/Vitamin C (Theragran) 1 tab PO DAILY [facility] Stop: 11/12/18 08:59 Last Admin: 09/14/18 09:13 Dose: 1 tab Pantoprazole Sodium (Protonix) 40 mg PO DAILY@0730 [facility] Stop: 11/12/18 07:29 Last Admin: 09/14/18 06:41 Dose: 40 mg Quetiapine Fumarate (Seroquel) 200 mg PO BID [facility]; Protocol Stop: 11/12/18 08:59 Last Admin: 09/14/18 09:13 Dose: 200 mg Sodium Phosphate (Fleet Enema) 135 ml RC DAILY PRN PRN Reason: Constipation Stop: 11/12/18 02:08 General: demented HEENT: NC/AT, PERRLA, EOMI, anicteric sclerae, throat clear Neck: Supple, No JVD, No thyromegaly, +2 carotid pulse wo bruit, No LAD, + JVD Cardiovascular: RRR, Normal S1, Normal S2, without murmur Abdomen: soft, non-tender, non-distended Extremities: clear Neurological: no change Internal Medicine Assmt/Plan - Assessment Assessment: 1.BPH. 2.DJD. 3.CONSTIPATION. 4.DEMENTIA. - Plan Plan: CONTINUE ON CURRENT MEDICATION AND DIET.
[2018-09-15] MEDS: Pantoprazole 40 mg EC Tab PO SCH (06:31)
[2018-09-15] MEDS: Multivitamin Tab PO SCH (08:34)
[2018-09-15] MEDS: Fexofenadine 60 mg Tab PO SCH ×2 (08:34→17:50)
[2018-09-15] MEDS: Atorvastatin Calcium 10 MG TAB PO SCH (08:35)
--- NOTE | 2018-09-15 20:02 | Internal Medicine Prog Note ---
Internal Medicine Subjective - Subjective Service Date: 09/15/18 Patient seen and examined:: with staff Patient is:: awake, in bed, confused Per staff patient has:: no adverse event Internal Medicine Objective - Results Result Diagrams: 09/13/18 00:20 09/13/18 00:25 Recent Labs: Laboratory Last Values WBC 5.5 Th/cmm (4.8-10.8) 09/13/18 00:20 RBC 3.97 Mil/cmm (3.80-5.80) 09/13/18 00:20 Hgb 13.1 gm/dL (12-16) 09/13/18 00:20 Hct 39.0 % (41.0-60) L 09/13/18 00:20 MCV 98.1 fl (80-99) 09/13/18 00:20 MCH 32.8 pg (27.0-31.0) H 09/13/18 00:20 MCHC Differential 33.5 pg (28.0-36.0) 09/13/18 00:20 RDW 13.1 % (11.5-20.0) 09/13/18 00:20 Plt Count 177 Th/cmm (150-400) 09/13/18 00:20 MPV 8.5 fl 09/13/18 00:20 Neutrophils % 67.0 % (40.0-80.0) 09/13/18 00:20 Lymphocytes % 19.0 % (20.0-50.0) L 09/13/18 00:20 Monocytes % 9.1 % (2.0-10.0) 09/13/18 00:20 Eosinophils % 4.7 % (0.0-5.0) 09/13/18 00:20 Basophils % 0.2 % (0.0-2.0) 09/13/18 00:20 Sodium 141 mEq/L (136-145) 09/13/18 00:25 Potassium 3.8 mEq/L (3.5-5.1) 09/13/18 00:25 Chloride 106 mEq/L (98-107) 09/13/18 00:25 Carbon Dioxide 25.7 mEq/L (21.0-31.0) 09/13/18 00:25 Anion Gap 13.1 (7.0-16.0) 09/13/18 00:25 BUN 16 mg/dL (7-25) 09/13/18 00:25 Creatinine 1.1 mg/dL (0.7-1.3) 09/13/18 00:25 Est GFR ( Amer) TNP 09/13/18 00:25 Est GFR (Non-Af Amer) TNP 09/13/18 00:25 BUN/Creatinine Ratio 14.5 09/13/18 00:25 Glucose 91 mg/dL (70-105) 09/13/18 00:25 Calcium 9.5 mg/dL (8.6-10.3) 09/13/18 00:25 Total Bilirubin 0.5 mg/dL (0.3-1.0) 09/13/18 00:25 AST 19 U/L (13-39) 09/13/18 00:25 ALT 16 U/L (7-52) 09/13/18 00:25 Alkaline Phosphatase 81 U/L (34-104) 09/13/18 00:25 Troponin I 0.01 ng/mL (0.01-0.05) 09/13/18 00:25 B-Natriuretic Peptide < 5.0 pg/mL (5.0-100.0) L 09/13/18 00:25 Total Protein 6.8 gm/dL (6.0-8.3) 09/13/18 00:25 Albumin 4.0 gm/dL (4.2-5.5) L 09/13/18 00:25 Globulin 2.8 gm/dL 09/13/18 00:25 Albumin/Globulin Ratio 1.4 (1.0-1.8) 09/13/18 00:25 Triglycerides 47 mg/dL (<150) 09/13/18 00:20 Cholesterol 114 mg/dL (<200) 09/13/18 00:20 LDL Cholesterol Direct 59 mg/dL (75-193) L 09/13/18 00:20 HDL Cholesterol 47 mg/dL (23-92) 09/13/18 00:20 TSH 1.37 uIU/ml (0.34-5.60) 09/13/18 00:25 Urine Source MIDSTREAM 09/13/18 20:40 Urine Color YELLOW 09/13/18 20:40 Urine Clarity CLEAR (CLEAR) 09/13/18 20:40 Urine pH 6.0 (4.6 - 8.0) 09/13/18 20:40 Ur Specific [place] >= 1.030 (1.005-1.030) 09/13/18 20:40 Urine Protein NEGATIVE mg/dL (NEGATIVE) 09/13/18 20:40 Urine Glucose (UA) NEGATIVE mg/dL (NEGATIVE) 09/13/18 20:40 Urine Ketones TRACE mg/dL (NEGATIVE) 09/13/18 20:40 Urine Blood NEGATIVE (NEGATIVE) 09/13/18 20:40 Urine Nitrate NEGATIVE (NEGATIVE) 09/13/18 20:40 Urine Bilirubin NEGATIVE (NEGATIVE) 09/13/18 20:40 Urine Urobilinogen 1.0 E.U./dL (0.2 - 1.0) 09/13/18 20:40 Ur Leukocyte Esterase TRACE (NEGATIVE) H 09/13/18 20:40 Urine RBC 0-2 /hpf (0-5) H 09/13/18 20:40 Urine WBC 2-5 /hpf (0-5) 09/13/18 20:40 Ur Epithelial Cells FEW /lpf (FEW) 09/13/18 20:40 Urine Bacteria 1+ /hpf (NONE SEEN) H 09/13/18 20:40 Urine Mucus FEW /lpf (FEW) 09/13/18 20:40 - Physical Exam Vitals and I&O: Vital Signs Temp 97.2 F 09/15/18 14:00 Pulse 79 09/15/18 14:00 Resp 20 09/15/18 14:00 BP 100/55 09/15/18 14:00 Pulse Ox 98 09/15/18 14:00 Intake & Output 09/15/18 09/15/18 09/16/18 06:59 18:59 06:59 Intake Total 120 1000 Balance 120 1000 Intake: Oral 120 1000 Other: # Voids 2 3 # Bowel Movements 0 1 Active Medications: Current Medications Acetaminophen (Tylenol) 650 mg PO Q4HR PRN PRN Reason: Mild Pain / Temp above 100 Stop: 11/12/18 02:01 Al Hydrox/Mg Hydrox/Simethicone (Maalox) 30 ml PO Q4HR PRN PRN Reason: GI DISTRESS Stop: 11/12/18 02:01 Aspirin (Ecotrin) 81 mg PO DAILY [facility] Stop: 11/12/18 08:59 Last Admin: 09/15/18 08:35 Dose: 81 mg Atorvastatin Calcium (Lipitor) 10 mg PO DAILY [facility]; Protocol Stop: 11/12/18 08:59 Last Admin: 09/15/18 08:35 Dose: 10 mg Bisacodyl (Dulcolax 10 Mg Supp) 10 mg RC DAILY PRN PRN Reason: Constipation Stop: 11/12/18 23:12 Cyanocobalamin (Vitamin B12) 1,000 mcg IM QMONTH [facility] Stop: 10/12/18 10:01 Docusate Sodium (Colace) 100 mg PO DAILY [facility] Stop: 11/12/18 08:59 Last Admin: 09/15/18 08:35 Dose: 100 mg Donepezil HCl (Aricept) 5 mg PO HS [facility] Stop: 11/12/18 20:59 Last Admin: 09/14/18 20:25 Dose: 5 mg Doxazosin Mesylate (Cardura) 2 mg PO HS [facility] Stop: 11/12/18 20:59 Last Admin: 09/14/18 20:25 Dose: 2 mg Fexofenadine HCl (Noemi) 60 mg PO BID [facility] Stop: 11/12/18 08:59 Last Admin: 09/15/18 17:50 Dose: 60 mg Lorazepam (Ativan) 0.5 mg PO Q4HR PRN; Protocol PRN Reason: Anxiety Stop: 10/13/18 02:01 Magnesium Hydroxide (Milk Of Magnesia) 30 ml PO HS PRN PRN Reason: Constipation Memantine (Namenda) 5 mg PO DAILY [facility] Stop: 11/12/18 08:59 Last Admin: 09/15/18 08:35 Dose: 5 mg Multivitamins/Vitamin C (Theragran) 1 tab PO DAILY [facility] Stop: 11/12/18 08:59 Last Admin: 09/15/18 08:34 Dose: 1 tab Pantoprazole Sodium (Protonix) 40 mg PO DAILY@0730 [facility] Stop: 11/12/18 07:29 Last Admin: 09/15/18 06:31 Dose: 40 mg Quetiapine Fumarate (Seroquel) 200 mg PO BID [facility]; Protocol Stop: 11/12/18 08:59 Last Admin: 09/15/18 17:50 Dose: 200 mg Sodium Phosphate (Fleet Enema) 135 ml RC DAILY PRN PRN Reason: Constipation Stop: 11/12/18 02:08 General: demented HEENT: NC/AT, PERRLA, EOMI, anicteric sclerae, throat clear Neck: Supple, No JVD, No thyromegaly, +2 carotid pulse wo bruit, No LAD, + JVD Cardiovascular: RRR, Normal S1, Normal S2, without murmur Abdomen: soft, non-tender, non-distended Extremities: clear Neurological: no change Internal Medicine Assmt/Plan - Assessment Assessment: 1.BPH. 2.DJD. 3.CONSTIPATION. 4.DEMENTIA. - Plan Plan: CONTINUE ON CURRENT MEDICATION AND DIET.
--- NOTE | 2018-09-15 20:42 | Progress Notes ---
DATE: 09/15/2018 Case was discussed with staff of the patient, reviewed records. The patient continues to have poor insight. Continues to be unpredictable, impulsive, needing redirection. Continues to be easily agitated. Unable to give much information. He is sleeping better, eating better. No side effects with the medication, no sedation or nausea. He is on Aricept 5 mg at bedtime and Namenda 5 mg daily, Seroquel 200 mg twice a day. We will continue to work with the patient in group therapy, milieu therapy, adjust medication as needed. JOB# [id number]
[2018-09-16] MEDS: Pantoprazole 40 mg EC Tab PO SCH (06:38)
[2018-09-16] MEDS: Multivitamin Tab PO SCH (09:31)
[2018-09-16] MEDS: Fexofenadine 60 mg Tab PO SCH ×2 (09:31→17:57)
[2018-09-16] MEDS: Atorvastatin Calcium 10 MG TAB PO SCH (09:31)
--- NOTE | 2018-09-16 19:58 | General Progress Note ---
Subjective - Review of Systems Service Date: 09/16/18 Subjective: resting comfortably no distress Objective - Results Result Diagrams: 09/13/18 00:20 09/13/18 00:25 Recent Labs: Laboratory Last Values WBC 5.5 Th/cmm (4.8-10.8) 09/13/18 00:20 RBC 3.97 Mil/cmm (3.80-5.80) 09/13/18 00:20 Hgb 13.1 gm/dL (12-16) 09/13/18 00:20 Hct 39.0 % (41.0-60) L 09/13/18 00:20 MCV 98.1 fl (80-99) 09/13/18 00:20 MCH 32.8 pg (27.0-31.0) H 09/13/18 00:20 MCHC Differential 33.5 pg (28.0-36.0) 09/13/18 00:20 RDW 13.1 % (11.5-20.0) 09/13/18 00:20 Plt Count 177 Th/cmm (150-400) 09/13/18 00:20 MPV 8.5 fl 09/13/18 00:20 Neutrophils % 67.0 % (40.0-80.0) 09/13/18 00:20 Lymphocytes % 19.0 % (20.0-50.0) L 09/13/18 00:20 Monocytes % 9.1 % (2.0-10.0) 09/13/18 00:20 Eosinophils % 4.7 % (0.0-5.0) 09/13/18 00:20 Basophils % 0.2 % (0.0-2.0) 09/13/18 00:20 Sodium 141 mEq/L (136-145) 09/13/18 00:25 Potassium 3.8 mEq/L (3.5-5.1) 09/13/18 00:25 Chloride 106 mEq/L (98-107) 09/13/18 00:25 Carbon Dioxide 25.7 mEq/L (21.0-31.0) 09/13/18 00:25 Anion Gap 13.1 (7.0-16.0) 09/13/18 00:25 BUN 16 mg/dL (7-25) 09/13/18 00:25 Creatinine 1.1 mg/dL (0.7-1.3) 09/13/18 00:25 Est GFR ( Amer) TNP 09/13/18 00:25 Est GFR (Non-Af Amer) TNP 09/13/18 00:25 BUN/Creatinine Ratio 14.5 09/13/18 00:25 Glucose 91 mg/dL (70-105) 09/13/18 00:25 Calcium 9.5 mg/dL (8.6-10.3) 09/13/18 00:25 Total Bilirubin 0.5 mg/dL (0.3-1.0) 09/13/18 00:25 AST 19 U/L (13-39) 09/13/18 00:25 ALT 16 U/L (7-52) 09/13/18 00:25 Alkaline Phosphatase 81 U/L (34-104) 09/13/18 00:25 Troponin I 0.01 ng/mL (0.01-0.05) 09/13/18 00:25 B-Natriuretic Peptide < 5.0 pg/mL (5.0-100.0) L 09/13/18 00:25 Total Protein 6.8 gm/dL (6.0-8.3) 09/13/18 00:25 Albumin 4.0 gm/dL (4.2-5.5) L 09/13/18 00:25 Globulin 2.8 gm/dL 09/13/18 00:25 Albumin/Globulin Ratio 1.4 (1.0-1.8) 09/13/18 00:25 Triglycerides 47 mg/dL (<150) 09/13/18 00:20 Cholesterol 114 mg/dL (<200) 09/13/18 00:20 LDL Cholesterol Direct 59 mg/dL (75-193) L 09/13/18 00:20 HDL Cholesterol 47 mg/dL (23-92) 09/13/18 00:20 TSH 1.37 uIU/ml (0.34-5.60) 09/13/18 00:25 Urine Source MIDSTREAM 09/13/18 20:40 Urine Color YELLOW 09/13/18 20:40 Urine Clarity CLEAR (CLEAR) 09/13/18 20:40 Urine pH 6.0 (4.6 - 8.0) 09/13/18 20:40 Ur Specific [place] >= 1.030 (1.005-1.030) 09/13/18 20:40 Urine Protein NEGATIVE mg/dL (NEGATIVE) 09/13/18 20:40 Urine Glucose (UA) NEGATIVE mg/dL (NEGATIVE) 09/13/18 20:40 Urine Ketones TRACE mg/dL (NEGATIVE) 09/13/18 20:40 Urine Blood NEGATIVE (NEGATIVE) 09/13/18 20:40 Urine Nitrate NEGATIVE (NEGATIVE) 09/13/18 20:40 Urine Bilirubin NEGATIVE (NEGATIVE) 09/13/18 20:40 Urine Urobilinogen 1.0 E.U./dL (0.2 - 1.0) 09/13/18 20:40 Ur Leukocyte Esterase TRACE (NEGATIVE) H 09/13/18 20:40 Urine RBC 0-2 /hpf (0-5) H 09/13/18 20:40 Urine WBC 2-5 /hpf (0-5) 09/13/18 20:40 Ur Epithelial Cells FEW /lpf (FEW) 09/13/18 20:40 Urine Bacteria 1+ /hpf (NONE SEEN) H 09/13/18 20:40 Urine Mucus FEW /lpf (FEW) 09/13/18 20:40 - Physical Exam Vitals and I&O: Vital Signs Temp 97.0 F 09/16/18 14:00 Pulse 96 09/16/18 14:00 Resp 20 09/16/18 14:00 BP 106/70 09/16/18 14:00 Pulse Ox 97 09/16/18 14:00 Intake & Output 09/16/18 09/16/18 09/17/18 06:59 18:59 06:59 Intake Total 240 1200 Balance 240 1200 Intake: Oral 240 1200 Other: # Voids 2 # Bowel Movements 0 Active Medications: Current Medications Acetaminophen (Tylenol) 650 mg PO Q4HR PRN PRN Reason: Mild Pain / Temp above 100 Stop: 11/12/18 02:01 Al Hydrox/Mg Hydrox/Simethicone (Maalox) 30 ml PO Q4HR PRN PRN Reason: GI DISTRESS Stop: 11/12/18 02:01 Aspirin (Ecotrin) 81 mg PO DAILY [facility] Stop: 11/12/18 08:59 Last Admin: 09/16/18 09:31 Dose: 81 mg Atorvastatin Calcium (Lipitor) 10 mg PO DAILY [facility]; Protocol Stop: 11/12/18 08:59 Last Admin: 09/16/18 09:31 Dose: 10 mg Bisacodyl (Dulcolax 10 Mg Supp) 10 mg RC DAILY PRN PRN Reason: Constipation Stop: 11/12/18 23:12 Cyanocobalamin (Vitamin B12) 1,000 mcg IM QMONTH [facility] Stop: 10/12/18 10:01 Docusate Sodium (Colace) 100 mg PO DAILY [facility] Stop: 11/12/18 08:59 Last Admin: 09/16/18 09:32 Dose: 100 mg Donepezil HCl (Aricept) 5 mg PO HS [facility] Stop: 11/12/18 20:59 Last Admin: 09/15/18 20:44 Dose: 5 mg Doxazosin Mesylate (Cardura) 2 mg PO HS [facility] Stop: 11/12/18 20:59 Last Admin: 09/15/18 20:44 Dose: 2 mg Fexofenadine HCl (Noemi) 60 mg PO BID [facility] Stop: 11/12/18 08:59 Last Admin: 09/16/18 17:57 Dose: 60 mg Lorazepam (Ativan) 0.5 mg PO Q4HR PRN; Protocol PRN Reason: Anxiety Stop: 10/13/18 02:01 Last Admin: 09/16/18 17:55 Dose: 0.5 mg Magnesium Hydroxide (Milk Of Magnesia) 30 ml PO HS PRN PRN Reason: Constipation Memantine (Namenda) 5 mg PO DAILY [facility] Stop: 11/12/18 08:59 Last Admin: 09/16/18 09:32 Dose: 5 mg Multivitamins/Vitamin C (Theragran) 1 tab PO DAILY [facility] Stop: 11/12/18 08:59 Last Admin: 09/16/18 09:31 Dose: 1 tab Pantoprazole Sodium (Protonix) 40 mg PO DAILY@0730 [facility] Stop: 11/12/18 07:29 Last Admin: 09/16/18 06:38 Dose: Not Given Quetiapine Fumarate (Seroquel) 200 mg PO BID [facility]; Protocol Stop: 11/12/18 08:59 Last Admin: 09/16/18 17:55 Dose: 200 mg Sodium Phosphate (Fleet Enema) 135 ml RC DAILY PRN PRN Reason: Constipation Stop: 11/12/18 02:08 General: No acute distress HEENT: Atraumatic, PERRLA Neck: Supple, JVD Cardiovascular: Regular rate, Normal S1, Normal S2 Lungs: Clear to auscultation Abdomen: Bowel sounds, Soft Assessment/Plan - Assessment Assessment: 1.ANEMIA 2.DJD. 3.CONSTIPATION. 4.DEMENTIA. 5.PSYCHOSIS. - Plan Plan: CONTINUE CURRENT TREATMENT
--- NOTE | 2018-09-17 04:00 | Progress Notes ---
DATE: 09/16/[address] Powers. IDENTIFYING DATA: An 83-year-old male brought in here by Kylee Ansari, confused, only knows his name and agitated. Today on [id number] evaluation, the patient only knows his name. He is irritable. With further questioning when asked about his emotions, he does not want to respond and pulls his sheet over his head. MENTAL STATUS EXAMINATION: Disengaged, irritable and agitated. ASSESSMENT AND PLAN: Due to the patient's easily agitated and aggressive behavior that resulted in hospitalization, unable to formulate a safe plan. Current medication reconciliation reviewed. Currently on Aricept 5 mg a day, which was recently started on the . He is currently also on Noemi, Cardura, Ativan as needed, Namenda 5 mg a day and quetiapine at 200 mg p.o. b.i.d. JOB# [id number]
[2018-09-17] MEDS: Pantoprazole 40 mg EC Tab PO SCH (06:44)
[2018-09-17] MEDS: Atorvastatin Calcium 10 MG TAB PO SCH (09:57)
[2018-09-17] MEDS: Fexofenadine 60 mg Tab PO SCH ×2 (09:57→18:20)
[2018-09-17] MEDS: Multivitamin Tab PO SCH (09:58)
--- NOTE | 2018-09-17 17:08 | General Progress Note ---
Subjective - Review of Systems Service Date: 09/17/18 Subjective: resting comfortably no distress Objective - Results Result Diagrams: 09/13/18 00:20 09/13/18 00:25 Recent Labs: Laboratory Last Values WBC 5.5 Th/cmm (4.8-10.8) 09/13/18 00:20 RBC 3.97 Mil/cmm (3.80-5.80) 09/13/18 00:20 Hgb 13.1 gm/dL (12-16) 09/13/18 00:20 Hct 39.0 % (41.0-60) L 09/13/18 00:20 MCV 98.1 fl (80-99) 09/13/18 00:20 MCH 32.8 pg (27.0-31.0) H 09/13/18 00:20 MCHC Differential 33.5 pg (28.0-36.0) 09/13/18 00:20 RDW 13.1 % (11.5-20.0) 09/13/18 00:20 Plt Count 177 Th/cmm (150-400) 09/13/18 00:20 MPV 8.5 fl 09/13/18 00:20 Neutrophils % 67.0 % (40.0-80.0) 09/13/18 00:20 Lymphocytes % 19.0 % (20.0-50.0) L 09/13/18 00:20 Monocytes % 9.1 % (2.0-10.0) 09/13/18 00:20 Eosinophils % 4.7 % (0.0-5.0) 09/13/18 00:20 Basophils % 0.2 % (0.0-2.0) 09/13/18 00:20 Sodium 141 mEq/L (136-145) 09/13/18 00:25 Potassium 3.8 mEq/L (3.5-5.1) 09/13/18 00:25 Chloride 106 mEq/L (98-107) 09/13/18 00:25 Carbon Dioxide 25.7 mEq/L (21.0-31.0) 09/13/18 00:25 Anion Gap 13.1 (7.0-16.0) 09/13/18 00:25 BUN 16 mg/dL (7-25) 09/13/18 00:25 Creatinine 1.1 mg/dL (0.7-1.3) 09/13/18 00:25 Est GFR ( Amer) TNP 09/13/18 00:25 Est GFR (Non-Af Amer) TNP 09/13/18 00:25 BUN/Creatinine Ratio 14.5 09/13/18 00:25 Glucose 91 mg/dL (70-105) 09/13/18 00:25 Calcium 9.5 mg/dL (8.6-10.3) 09/13/18 00:25 Total Bilirubin 0.5 mg/dL (0.3-1.0) 09/13/18 00:25 AST 19 U/L (13-39) 09/13/18 00:25 ALT 16 U/L (7-52) 09/13/18 00:25 Alkaline Phosphatase 81 U/L (34-104) 09/13/18 00:25 Troponin I 0.01 ng/mL (0.01-0.05) 09/13/18 00:25 B-Natriuretic Peptide < 5.0 pg/mL (5.0-100.0) L 09/13/18 00:25 Total Protein 6.8 gm/dL (6.0-8.3) 09/13/18 00:25 Albumin 4.0 gm/dL (4.2-5.5) L 09/13/18 00:25 Globulin 2.8 gm/dL 09/13/18 00:25 Albumin/Globulin Ratio 1.4 (1.0-1.8) 09/13/18 00:25 Triglycerides 47 mg/dL (<150) 09/13/18 00:20 Cholesterol 114 mg/dL (<200) 09/13/18 00:20 LDL Cholesterol Direct 59 mg/dL (75-193) L 09/13/18 00:20 HDL Cholesterol 47 mg/dL (23-92) 09/13/18 00:20 TSH 1.37 uIU/ml (0.34-5.60) 09/13/18 00:25 Urine Source MIDSTREAM 09/13/18 20:40 Urine Color YELLOW 09/13/18 20:40 Urine Clarity CLEAR (CLEAR) 09/13/18 20:40 Urine pH 6.0 (4.6 - 8.0) 09/13/18 20:40 Ur Specific [place] >= 1.030 (1.005-1.030) 09/13/18 20:40 Urine Protein NEGATIVE mg/dL (NEGATIVE) 09/13/18 20:40 Urine Glucose (UA) NEGATIVE mg/dL (NEGATIVE) 09/13/18 20:40 Urine Ketones TRACE mg/dL (NEGATIVE) 09/13/18 20:40 Urine Blood NEGATIVE (NEGATIVE) 09/13/18 20:40 Urine Nitrate NEGATIVE (NEGATIVE) 09/13/18 20:40 Urine Bilirubin NEGATIVE (NEGATIVE) 09/13/18 20:40 Urine Urobilinogen 1.0 E.U./dL (0.2 - 1.0) 09/13/18 20:40 Ur Leukocyte Esterase TRACE (NEGATIVE) H 09/13/18 20:40 Urine RBC 0-2 /hpf (0-5) H 09/13/18 20:40 Urine WBC 2-5 /hpf (0-5) 09/13/18 20:40 Ur Epithelial Cells FEW /lpf (FEW) 09/13/18 20:40 Urine Bacteria 1+ /hpf (NONE SEEN) H 09/13/18 20:40 Urine Mucus FEW /lpf (FEW) 09/13/18 20:40 - Physical Exam Vitals and I&O: Vital Signs Temp 98.0 F 09/17/18 14:42 Pulse 86 09/17/18 14:42 Resp 20 09/17/18 14:42 BP 130/76 09/17/18 14:42 Pulse Ox 96 09/17/18 14:42 Intake & Output 09/16/18 09/17/18 09/17/18 18:59 06:59 18:59 Intake Total 1200 360 Balance 1200 360 Intake: Oral 1200 360 Other: # Voids 2 Active Medications: Current Medications Acetaminophen (Tylenol) 650 mg PO Q4HR PRN PRN Reason: Mild Pain / Temp above 100 Stop: 11/12/18 02:01 Al Hydrox/Mg Hydrox/Simethicone (Maalox) 30 ml PO Q4HR PRN PRN Reason: GI DISTRESS Stop: 11/12/18 02:01 Aspirin (Ecotrin) 81 mg PO DAILY [facility] Stop: 11/12/18 08:59 Last Admin: 09/17/18 09:57 Dose: 81 mg Atorvastatin Calcium (Lipitor) 10 mg PO DAILY [facility]; Protocol Stop: 11/12/18 08:59 Last Admin: 09/17/18 09:57 Dose: 10 mg Bisacodyl (Dulcolax 10 Mg Supp) 10 mg RC DAILY PRN PRN Reason: Constipation Stop: 11/12/18 23:12 Cyanocobalamin (Vitamin B12) 1,000 mcg IM QMONTH [facility] Stop: 10/12/18 10:01 Docusate Sodium (Colace) 100 mg PO DAILY [facility] Stop: 11/12/18 08:59 Last Admin: 09/17/18 09:56 Dose: 100 mg Donepezil HCl (Aricept) 5 mg PO HS [facility] Stop: 11/12/18 20:59 Last Admin: 09/16/18 20:56 Dose: 5 mg Doxazosin Mesylate (Cardura) 2 mg PO HS [facility] Stop: 11/12/18 20:59 Last Admin: 09/16/18 20:57 Dose: 2 mg Fexofenadine HCl (Noemi) 60 mg PO BID [facility] Stop: 11/12/18 08:59 Last Admin: 09/17/18 09:57 Dose: 60 mg Lorazepam (Ativan) 0.5 mg PO Q4HR PRN; Protocol PRN Reason: Anxiety Stop: 10/13/18 02:01 Last Admin: 09/17/18 09:57 Dose: 0.5 mg Magnesium Hydroxide (Milk Of Magnesia) 30 ml PO HS PRN PRN Reason: Constipation Memantine (Namenda) 5 mg PO DAILY [facility] Stop: 11/12/18 08:59 Last Admin: 09/17/18 09:58 Dose: 5 mg Multivitamins/Vitamin C (Theragran) 1 tab PO DAILY [facility] Stop: 11/12/18 08:59 Last Admin: 09/17/18 09:58 Dose: 1 tab Pantoprazole Sodium (Protonix) 40 mg PO DAILY@0730 [facility] Stop: 11/12/18 07:29 Last Admin: 09/17/18 06:44 Dose: 40 mg Quetiapine Fumarate (Seroquel) 200 mg PO BID [facility]; Protocol Stop: 11/12/18 08:59 Last Admin: 09/17/18 09:57 Dose: 200 mg Sodium Phosphate (Fleet Enema) 135 ml RC DAILY PRN PRN Reason: Constipation Stop: 11/12/18 02:08 General: No acute distress HEENT: Atraumatic, PERRLA Neck: Supple, JVD Cardiovascular: Regular rate, Normal S1, Normal S2 Lungs: Clear to auscultation Abdomen: Bowel sounds, Soft Assessment/Plan - Assessment Assessment: 1.ANEMIA 2.DJD. 3.CONSTIPATION. 4.DEMENTIA. 5.PSYCHOSIS. - Plan Plan: CONTINUE CURRENT TREATMENT
--- NOTE | 2018-09-18 05:54 | Progress Notes ---
DATE: 09/17/[address] Powers. SUBJECTIVE: Today on [id number] evaluation, the patient reported he is okay. He denies any complications. He is only oriented to name and beyond that he becomes more irritable with the questions. MENTAL STATUS EXAMINATION: Irritable, agitated, neurocognitively impaired. ASSESSMENT AND PLAN: With the patient's severe dementia with behavioral disturbances, we will continue with the current medication regimen ____ target the patient's behavioral disturbance associated with his dementia and cognitive impairment. JOB# [id number]
[2018-09-18] MEDS: Pantoprazole 40 mg EC Tab PO SCH (06:31)
[2018-09-18] MEDS: Atorvastatin Calcium 10 MG TAB PO SCH (09:54)
[2018-09-18] MEDS: Fexofenadine 60 mg Tab PO SCH ×2 (09:55→18:00)
[2018-09-18] MEDS: Multivitamin Tab PO SCH (09:55)
--- NOTE | 2018-09-18 20:54 | Internal Medicine Prog Note ---
Internal Medicine Subjective - Subjective Service Date: 09/18/18 Patient seen and examined:: with staff Patient is:: awake, in bed, confused Per staff patient has:: no adverse event Internal Medicine Objective - Results Result Diagrams: 09/13/18 00:20 09/13/18 00:25 Recent Labs: Laboratory Last Values WBC 5.5 Th/cmm (4.8-10.8) 09/13/18 00:20 RBC 3.97 Mil/cmm (3.80-5.80) 09/13/18 00:20 Hgb 13.1 gm/dL (12-16) 09/13/18 00:20 Hct 39.0 % (41.0-60) L 09/13/18 00:20 MCV 98.1 fl (80-99) 09/13/18 00:20 MCH 32.8 pg (27.0-31.0) H 09/13/18 00:20 MCHC Differential 33.5 pg (28.0-36.0) 09/13/18 00:20 RDW 13.1 % (11.5-20.0) 09/13/18 00:20 Plt Count 177 Th/cmm (150-400) 09/13/18 00:20 MPV 8.5 fl 09/13/18 00:20 Neutrophils % 67.0 % (40.0-80.0) 09/13/18 00:20 Lymphocytes % 19.0 % (20.0-50.0) L 09/13/18 00:20 Monocytes % 9.1 % (2.0-10.0) 09/13/18 00:20 Eosinophils % 4.7 % (0.0-5.0) 09/13/18 00:20 Basophils % 0.2 % (0.0-2.0) 09/13/18 00:20 Sodium 141 mEq/L (136-145) 09/13/18 00:25 Potassium 3.8 mEq/L (3.5-5.1) 09/13/18 00:25 Chloride 106 mEq/L (98-107) 09/13/18 00:25 Carbon Dioxide 25.7 mEq/L (21.0-31.0) 09/13/18 00:25 Anion Gap 13.1 (7.0-16.0) 09/13/18 00:25 BUN 16 mg/dL (7-25) 09/13/18 00:25 Creatinine 1.1 mg/dL (0.7-1.3) 09/13/18 00:25 Est GFR ( Amer) TNP 09/13/18 00:25 Est GFR (Non-Af Amer) TNP 09/13/18 00:25 BUN/Creatinine Ratio 14.5 09/13/18 00:25 Glucose 91 mg/dL (70-105) 09/13/18 00:25 Calcium 9.5 mg/dL (8.6-10.3) 09/13/18 00:25 Total Bilirubin 0.5 mg/dL (0.3-1.0) 09/13/18 00:25 AST 19 U/L (13-39) 09/13/18 00:25 ALT 16 U/L (7-52) 09/13/18 00:25 Alkaline Phosphatase 81 U/L (34-104) 09/13/18 00:25 Troponin I 0.01 ng/mL (0.01-0.05) 09/13/18 00:25 B-Natriuretic Peptide < 5.0 pg/mL (5.0-100.0) L 09/13/18 00:25 Total Protein 6.8 gm/dL (6.0-8.3) 09/13/18 00:25 Albumin 4.0 gm/dL (4.2-5.5) L 09/13/18 00:25 Globulin 2.8 gm/dL 09/13/18 00:25 Albumin/Globulin Ratio 1.4 (1.0-1.8) 09/13/18 00:25 Triglycerides 47 mg/dL (<150) 09/13/18 00:20 Cholesterol 114 mg/dL (<200) 09/13/18 00:20 LDL Cholesterol Direct 59 mg/dL (75-193) L 09/13/18 00:20 HDL Cholesterol 47 mg/dL (23-92) 09/13/18 00:20 TSH 1.37 uIU/ml (0.34-5.60) 09/13/18 00:25 Urine Source MIDSTREAM 09/13/18 20:40 Urine Color YELLOW 09/13/18 20:40 Urine Clarity CLEAR (CLEAR) 09/13/18 20:40 Urine pH 6.0 (4.6 - 8.0) 09/13/18 20:40 Ur Specific [place] >= 1.030 (1.005-1.030) 09/13/18 20:40 Urine Protein NEGATIVE mg/dL (NEGATIVE) 09/13/18 20:40 Urine Glucose (UA) NEGATIVE mg/dL (NEGATIVE) 09/13/18 20:40 Urine Ketones TRACE mg/dL (NEGATIVE) 09/13/18 20:40 Urine Blood NEGATIVE (NEGATIVE) 09/13/18 20:40 Urine Nitrate NEGATIVE (NEGATIVE) 09/13/18 20:40 Urine Bilirubin NEGATIVE (NEGATIVE) 09/13/18 20:40 Urine Urobilinogen 1.0 E.U./dL (0.2 - 1.0) 09/13/18 20:40 Ur Leukocyte Esterase TRACE (NEGATIVE) H 09/13/18 20:40 Urine RBC 0-2 /hpf (0-5) H 09/13/18 20:40 Urine WBC 2-5 /hpf (0-5) 09/13/18 20:40 Ur Epithelial Cells FEW /lpf (FEW) 09/13/18 20:40 Urine Bacteria 1+ /hpf (NONE SEEN) H 09/13/18 20:40 Urine Mucus FEW /lpf (FEW) 09/13/18 20:40 - Physical Exam Vitals and I&O: Vital Signs Temp 0 F 09/18/18 14:06 Pulse 76 09/18/18 06:22 Resp 19 09/18/18 06:22 BP 111/63 09/18/18 06:22 Pulse Ox 99 09/18/18 06:22 Intake & Output 09/18/18 09/18/18 09/19/18 06:59 18:59 06:59 Intake Total 300 Balance 300 Intake: Oral 300 Other: # Voids 1 2 # Bowel Movements 0 0 Active Medications: Current Medications Acetaminophen (Tylenol) 650 mg PO Q4HR PRN PRN Reason: Mild Pain / Temp above 100 Stop: 11/12/18 02:01 Al Hydrox/Mg Hydrox/Simethicone (Maalox) 30 ml PO Q4HR PRN PRN Reason: GI DISTRESS Stop: 11/12/18 02:01 Aspirin (Ecotrin) 81 mg PO DAILY [facility] Stop: 11/12/18 08:59 Last Admin: 09/18/18 09:54 Dose: Not Given Atorvastatin Calcium (Lipitor) 10 mg PO DAILY [facility]; Protocol Stop: 11/12/18 08:59 Last Admin: 09/18/18 09:54 Dose: Not Given Bisacodyl (Dulcolax 10 Mg Supp) 10 mg RC DAILY PRN PRN Reason: Constipation Stop: 11/12/18 23:12 Cyanocobalamin (Vitamin B12) 1,000 mcg IM QMONTH [facility] Stop: 10/12/18 10:01 Docusate Sodium (Colace) 100 mg PO DAILY [facility] Stop: 11/12/18 08:59 Last Admin: 09/18/18 09:55 Dose: Not Given Donepezil HCl (Aricept) 5 mg PO HS [facility] Stop: 11/12/18 20:59 Last Admin: 09/18/18 20:36 Dose: 5 mg Doxazosin Mesylate (Cardura) 2 mg PO HS [facility] Stop: 11/12/18 20:59 Last Admin: 09/18/18 20:37 Dose: 2 mg Fexofenadine HCl (Noemi) 60 mg PO BID [facility] Stop: 11/12/18 08:59 Last Admin: 09/18/18 18:00 Dose: Not Given Lorazepam (Ativan) 0.5 mg PO Q4HR PRN; Protocol PRN Reason: Anxiety Stop: 10/13/18 02:01 Last Admin: 09/18/18 20:36 Dose: 0.5 mg Magnesium Hydroxide (Milk Of Magnesia) 30 ml PO HS PRN PRN Reason: Constipation Memantine (Namenda) 5 mg PO DAILY [facility] Stop: 11/12/18 08:59 Last Admin: 09/18/18 09:55 Dose: Not Given Multivitamins/Vitamin C (Theragran) 1 tab PO DAILY [facility] Stop: 11/12/18 08:59 Last Admin: 09/18/18 09:55 Dose: Not Given Pantoprazole Sodium (Protonix) 40 mg PO DAILY@0730 [facility] Stop: 11/12/18 07:29 Last Admin: 09/18/18 06:31 Dose: 40 mg Quetiapine Fumarate (Seroquel) 200 mg PO BID [facility]; Protocol Stop: 11/12/18 08:59 Last Admin: 09/18/18 17:54 Dose: Not Given Sodium Phosphate (Fleet Enema) 135 ml RC DAILY PRN PRN Reason: Constipation Stop: 11/12/18 02:08 General: demented HEENT: NC/AT, PERRLA, EOMI, anicteric sclerae, throat clear Neck: Supple, No JVD, No thyromegaly, +2 carotid pulse wo bruit, No LAD, + JVD Cardiovascular: RRR, Normal S1, Normal S2, without murmur Abdomen: soft, non-tender, non-distended Extremities: clear Neurological: no change Internal Medicine Assmt/Plan - Assessment Assessment: 1.BPH. 2.DJD. 3.CONSTIPATION. 4.DEMENTIA. - Plan Plan: CONTINUE ON CURRENT MEDICATION AND DIET.
--- NOTE | 2018-09-19 03:36 | Progress Notes ---
DATE: 09/18/2018 The patient is calm, generally cooperative, confused, disoriented, ongoing concerns about impulsivity, impulse control. However, he does seem to be generally calmer, getting along well with staff and peers, slept fairly well. AO to name only, does not really know where he is or what is going on, sometimes resistance to care. ASSESSMENT: The patient with ongoing confusion and poor impulse control. Concerns he may act on impulses. PLAN: We will continue to monitor. No medication side effects noted. JOB# [id number]
[2018-09-19] MEDS: Atorvastatin Calcium 10 MG TAB PO SCH (09:50)
[2018-09-19] MEDS: Multivitamin Tab PO SCH (09:51)
[2018-09-19] MEDS: Pantoprazole 40 mg EC Tab PO SCH (09:54)
[2018-09-19] MEDS: Fexofenadine 60 mg Tab PO SCH ×2 (10:04→16:14)
--- NOTE | 2018-09-19 20:57 | Internal Medicine Prog Note ---
Internal Medicine Subjective - Subjective Service Date: 09/19/18 Patient seen and examined:: with staff Patient is:: awake, in bed, confused Per staff patient has:: no adverse event Internal Medicine Objective - Results Result Diagrams: 09/13/18 00:20 09/13/18 00:25 Recent Labs: Laboratory Last Values WBC 5.5 Th/cmm (4.8-10.8) 09/13/18 00:20 RBC 3.97 Mil/cmm (3.80-5.80) 09/13/18 00:20 Hgb 13.1 gm/dL (12-16) 09/13/18 00:20 Hct 39.0 % (41.0-60) L 09/13/18 00:20 MCV 98.1 fl (80-99) 09/13/18 00:20 MCH 32.8 pg (27.0-31.0) H 09/13/18 00:20 MCHC Differential 33.5 pg (28.0-36.0) 09/13/18 00:20 RDW 13.1 % (11.5-20.0) 09/13/18 00:20 Plt Count 177 Th/cmm (150-400) 09/13/18 00:20 MPV 8.5 fl 09/13/18 00:20 Neutrophils % 67.0 % (40.0-80.0) 09/13/18 00:20 Lymphocytes % 19.0 % (20.0-50.0) L 09/13/18 00:20 Monocytes % 9.1 % (2.0-10.0) 09/13/18 00:20 Eosinophils % 4.7 % (0.0-5.0) 09/13/18 00:20 Basophils % 0.2 % (0.0-2.0) 09/13/18 00:20 Sodium 141 mEq/L (136-145) 09/13/18 00:25 Potassium 3.8 mEq/L (3.5-5.1) 09/13/18 00:25 Chloride 106 mEq/L (98-107) 09/13/18 00:25 Carbon Dioxide 25.7 mEq/L (21.0-31.0) 09/13/18 00:25 Anion Gap 13.1 (7.0-16.0) 09/13/18 00:25 BUN 16 mg/dL (7-25) 09/13/18 00:25 Creatinine 1.1 mg/dL (0.7-1.3) 09/13/18 00:25 Est GFR ( Amer) TNP 09/13/18 00:25 Est GFR (Non-Af Amer) TNP 09/13/18 00:25 BUN/Creatinine Ratio 14.5 09/13/18 00:25 Glucose 91 mg/dL (70-105) 09/13/18 00:25 Calcium 9.5 mg/dL (8.6-10.3) 09/13/18 00:25 Total Bilirubin 0.5 mg/dL (0.3-1.0) 09/13/18 00:25 AST 19 U/L (13-39) 09/13/18 00:25 ALT 16 U/L (7-52) 09/13/18 00:25 Alkaline Phosphatase 81 U/L (34-104) 09/13/18 00:25 Troponin I 0.01 ng/mL (0.01-0.05) 09/13/18 00:25 B-Natriuretic Peptide < 5.0 pg/mL (5.0-100.0) L 09/13/18 00:25 Total Protein 6.8 gm/dL (6.0-8.3) 09/13/18 00:25 Albumin 4.0 gm/dL (4.2-5.5) L 09/13/18 00:25 Globulin 2.8 gm/dL 09/13/18 00:25 Albumin/Globulin Ratio 1.4 (1.0-1.8) 09/13/18 00:25 Triglycerides 47 mg/dL (<150) 09/13/18 00:20 Cholesterol 114 mg/dL (<200) 09/13/18 00:20 LDL Cholesterol Direct 59 mg/dL (75-193) L 09/13/18 00:20 HDL Cholesterol 47 mg/dL (23-92) 09/13/18 00:20 TSH 1.37 uIU/ml (0.34-5.60) 09/13/18 00:25 Urine Source MIDSTREAM 09/13/18 20:40 Urine Color YELLOW 09/13/18 20:40 Urine Clarity CLEAR (CLEAR) 09/13/18 20:40 Urine pH 6.0 (4.6 - 8.0) 09/13/18 20:40 Ur Specific [place] >= 1.030 (1.005-1.030) 09/13/18 20:40 Urine Protein NEGATIVE mg/dL (NEGATIVE) 09/13/18 20:40 Urine Glucose (UA) NEGATIVE mg/dL (NEGATIVE) 09/13/18 20:40 Urine Ketones TRACE mg/dL (NEGATIVE) 09/13/18 20:40 Urine Blood NEGATIVE (NEGATIVE) 09/13/18 20:40 Urine Nitrate NEGATIVE (NEGATIVE) 09/13/18 20:40 Urine Bilirubin NEGATIVE (NEGATIVE) 09/13/18 20:40 Urine Urobilinogen 1.0 E.U./dL (0.2 - 1.0) 09/13/18 20:40 Ur Leukocyte Esterase TRACE (NEGATIVE) H 09/13/18 20:40 Urine RBC 0-2 /hpf (0-5) H 09/13/18 20:40 Urine WBC 2-5 /hpf (0-5) 09/13/18 20:40 Ur Epithelial Cells FEW /lpf (FEW) 09/13/18 20:40 Urine Bacteria 1+ /hpf (NONE SEEN) H 09/13/18 20:40 Urine Mucus FEW /lpf (FEW) 09/13/18 20:40 - Physical Exam Vitals and I&O: Vital Signs Temp 98.2 F 09/19/18 16:29 Pulse 81 09/19/18 16:29 Resp 20 09/19/18 16:29 BP 133/67 09/19/18 16:29 Pulse Ox 98 09/19/18 16:29 Intake & Output 09/19/18 09/19/18 09/20/18 06:59 18:59 06:59 Intake Total 300 60 Balance 300 60 Intake: Oral 300 60 Other: # Voids 1 2 # Bowel Movements 0 0 Active Medications: Current Medications Acetaminophen (Tylenol) 650 mg PO Q4HR PRN PRN Reason: Mild Pain / Temp above 100 Stop: 11/12/18 02:01 Al Hydrox/Mg Hydrox/Simethicone (Maalox) 30 ml PO Q4HR PRN PRN Reason: GI DISTRESS Stop: 11/12/18 02:01 Aspirin (Ecotrin) 81 mg PO DAILY [facility] Stop: 11/12/18 08:59 Last Admin: 09/19/18 09:51 Dose: 81 mg Atorvastatin Calcium (Lipitor) 10 mg PO DAILY [facility]; Protocol Stop: 11/12/18 08:59 Last Admin: 09/19/18 09:50 Dose: 10 mg Bisacodyl (Dulcolax 10 Mg Supp) 10 mg RC DAILY PRN PRN Reason: Constipation Stop: 11/12/18 23:12 Cyanocobalamin (Vitamin B12) 1,000 mcg IM QMONTH [facility] Stop: 10/12/18 10:01 Docusate Sodium (Colace) 100 mg PO DAILY [facility] Stop: 11/12/18 08:59 Last Admin: 09/19/18 09:50 Dose: 100 mg Donepezil HCl (Aricept) 5 mg PO HS [facility] Stop: 11/12/18 20:59 Last Admin: 09/19/18 20:48 Dose: 5 mg Doxazosin Mesylate (Cardura) 2 mg PO HS [facility] Stop: 11/12/18 20:59 Last Admin: 09/19/18 20:48 Dose: 2 mg Fexofenadine HCl (Noemi) 60 mg PO BID [facility] Stop: 11/12/18 08:59 Last Admin: 09/19/18 16:14 Dose: 60 mg Lorazepam (Ativan) 0.5 mg PO Q4HR PRN; Protocol PRN Reason: Anxiety Stop: 10/13/18 02:01 Last Admin: 09/19/18 20:49 Dose: 0.5 mg Magnesium Hydroxide (Milk Of Magnesia) 30 ml PO HS PRN PRN Reason: Constipation Memantine (Namenda) 5 mg PO DAILY [facility] Stop: 11/12/18 08:59 Last Admin: 09/19/18 09:51 Dose: 5 mg Multivitamins/Vitamin C (Theragran) 1 tab PO DAILY [facility] Stop: 11/12/18 08:59 Last Admin: 09/19/18 09:51 Dose: 1 tab Pantoprazole Sodium (Protonix) 40 mg PO DAILY@0730 [facility] Stop: 11/12/18 07:29 Last Admin: 09/19/18 09:54 Dose: 40 mg Quetiapine Fumarate (Seroquel) 200 mg PO BID [facility]; Protocol Stop: 11/12/18 08:59 Last Admin: 09/19/18 16:13 Dose: 200 mg Sodium Phosphate (Fleet Enema) 135 ml RC DAILY PRN PRN Reason: Constipation Stop: 11/12/18 02:08 General: demented HEENT: NC/AT, PERRLA, EOMI, anicteric sclerae, throat clear Neck: Supple, No JVD, No thyromegaly, +2 carotid pulse wo bruit, No LAD, + JVD Cardiovascular: RRR, Normal S1, Normal S2, without murmur Abdomen: soft, non-tender, non-distended Extremities: clear Neurological: no change Internal Medicine Assmt/Plan - Assessment Assessment: 1.BPH. 2.DJD. 3.CONSTIPATION. 4.DEMENTIA. - Plan Plan: CONTINUE ON CURRENT MEDICATION AND DIET.
--- NOTE | 2018-09-20 02:44 | Progress Notes ---
DATE: SUBJECTIVE: The patient seen, chart reviewed, discussed with staff. The patient remains confused and disoriented. He is generally calmer, more cooperative, remains somewhat impulsive, unpredictable, sometimes yells, but otherwise calm, more redirectable, sometimes also refusing medications, which is concerning. AO to name only, fair sleep, fair appetite. ASSESSMENT: The patient requiring prompting and redirection, erratic medication compliance, remains highly impulsive, unpredictable, ongoing concerns about striking out behaviors. We will continue to monitor. JOB# [id number]
[2018-09-20] MEDS: Pantoprazole 40 mg EC Tab PO SCH (06:48)
[2018-09-20] MEDS: Atorvastatin Calcium 10 MG TAB PO SCH (09:25)
[2018-09-20] MEDS: Multivitamin Tab PO SCH (09:25)
[2018-09-20] MEDS: Fexofenadine 60 mg Tab PO SCH ×2 (09:26→17:31)
--- NOTE | 2018-09-21 00:09 | Internal Medicine Prog Note ---
Internal Medicine Subjective - Subjective Service Date: 09/20/18 Patient seen and examined:: without staff Patient is:: awake, in bed, confused Per staff patient has:: no adverse event Internal Medicine Objective - Results Result Diagrams: 09/13/18 00:20 09/13/18 00:25 Recent Labs: Laboratory Last Values WBC 5.5 Th/cmm (4.8-10.8) 09/13/18 00:20 RBC 3.97 Mil/cmm (3.80-5.80) 09/13/18 00:20 Hgb 13.1 gm/dL (12-16) 09/13/18 00:20 Hct 39.0 % (41.0-60) L 09/13/18 00:20 MCV 98.1 fl (80-99) 09/13/18 00:20 MCH 32.8 pg (27.0-31.0) H 09/13/18 00:20 MCHC Differential 33.5 pg (28.0-36.0) 09/13/18 00:20 RDW 13.1 % (11.5-20.0) 09/13/18 00:20 Plt Count 177 Th/cmm (150-400) 09/13/18 00:20 MPV 8.5 fl 09/13/18 00:20 Neutrophils % 67.0 % (40.0-80.0) 09/13/18 00:20 Lymphocytes % 19.0 % (20.0-50.0) L 09/13/18 00:20 Monocytes % 9.1 % (2.0-10.0) 09/13/18 00:20 Eosinophils % 4.7 % (0.0-5.0) 09/13/18 00:20 Basophils % 0.2 % (0.0-2.0) 09/13/18 00:20 Sodium 141 mEq/L (136-145) 09/13/18 00:25 Potassium 3.8 mEq/L (3.5-5.1) 09/13/18 00:25 Chloride 106 mEq/L (98-107) 09/13/18 00:25 Carbon Dioxide 25.7 mEq/L (21.0-31.0) 09/13/18 00:25 Anion Gap 13.1 (7.0-16.0) 09/13/18 00:25 BUN 16 mg/dL (7-25) 09/13/18 00:25 Creatinine 1.1 mg/dL (0.7-1.3) 09/13/18 00:25 Est GFR ( Amer) TNP 09/13/18 00:25 Est GFR (Non-Af Amer) TNP 09/13/18 00:25 BUN/Creatinine Ratio 14.5 09/13/18 00:25 Glucose 91 mg/dL (70-105) 09/13/18 00:25 Calcium 9.5 mg/dL (8.6-10.3) 09/13/18 00:25 Total Bilirubin 0.5 mg/dL (0.3-1.0) 09/13/18 00:25 AST 19 U/L (13-39) 09/13/18 00:25 ALT 16 U/L (7-52) 09/13/18 00:25 Alkaline Phosphatase 81 U/L (34-104) 09/13/18 00:25 Troponin I 0.01 ng/mL (0.01-0.05) 09/13/18 00:25 B-Natriuretic Peptide < 5.0 pg/mL (5.0-100.0) L 09/13/18 00:25 Total Protein 6.8 gm/dL (6.0-8.3) 09/13/18 00:25 Albumin 4.0 gm/dL (4.2-5.5) L 09/13/18 00:25 Globulin 2.8 gm/dL 09/13/18 00:25 Albumin/Globulin Ratio 1.4 (1.0-1.8) 09/13/18 00:25 Triglycerides 47 mg/dL (<150) 09/13/18 00:20 Cholesterol 114 mg/dL (<200) 09/13/18 00:20 LDL Cholesterol Direct 59 mg/dL (75-193) L 09/13/18 00:20 HDL Cholesterol 47 mg/dL (23-92) 09/13/18 00:20 TSH 1.37 uIU/ml (0.34-5.60) 09/13/18 00:25 Urine Source MIDSTREAM 09/13/18 20:40 Urine Color YELLOW 09/13/18 20:40 Urine Clarity CLEAR (CLEAR) 09/13/18 20:40 Urine pH 6.0 (4.6 - 8.0) 09/13/18 20:40 Ur Specific [place] >= 1.030 (1.005-1.030) 09/13/18 20:40 Urine Protein NEGATIVE mg/dL (NEGATIVE) 09/13/18 20:40 Urine Glucose (UA) NEGATIVE mg/dL (NEGATIVE) 09/13/18 20:40 Urine Ketones TRACE mg/dL (NEGATIVE) 09/13/18 20:40 Urine Blood NEGATIVE (NEGATIVE) 09/13/18 20:40 Urine Nitrate NEGATIVE (NEGATIVE) 09/13/18 20:40 Urine Bilirubin NEGATIVE (NEGATIVE) 09/13/18 20:40 Urine Urobilinogen 1.0 E.U./dL (0.2 - 1.0) 09/13/18 20:40 Ur Leukocyte Esterase TRACE (NEGATIVE) H 09/13/18 20:40 Urine RBC 0-2 /hpf (0-5) H 09/13/18 20:40 Urine WBC 2-5 /hpf (0-5) 09/13/18 20:40 Ur Epithelial Cells FEW /lpf (FEW) 09/13/18 20:40 Urine Bacteria 1+ /hpf (NONE SEEN) H 09/13/18 20:40 Urine Mucus FEW /lpf (FEW) 09/13/18 20:40 - Physical Exam Vitals and I&O: Vital Signs Temp 97.6 F 09/20/18 14:00 Pulse 90 09/20/18 14:00 Resp 20 09/20/18 14:00 BP 104/65 09/20/18 14:00 Pulse Ox 99 09/20/18 14:00 Intake & Output 09/20/18 09/20/18 09/21/18 06:59 18:59 06:59 Intake Total 60 Balance 60 Intake: Oral 60 Other: # Voids 1 # Bowel Movements 0 1 Active Medications: Current Medications Acetaminophen (Tylenol) 650 mg PO Q4HR PRN PRN Reason: Mild Pain / Temp above 100 Stop: 11/12/18 02:01 Al Hydrox/Mg Hydrox/Simethicone (Maalox) 30 ml PO Q4HR PRN PRN Reason: GI DISTRESS Stop: 11/12/18 02:01 Aspirin (Ecotrin) 81 mg PO DAILY [facility] Stop: 11/12/18 08:59 Last Admin: 09/20/18 09:25 Dose: Not Given Atorvastatin Calcium (Lipitor) 10 mg PO DAILY [facility]; Protocol Stop: 11/12/18 08:59 Last Admin: 09/20/18 09:25 Dose: 10 mg Bisacodyl (Dulcolax 10 Mg Supp) 10 mg RC DAILY PRN PRN Reason: Constipation Stop: 11/12/18 23:12 Cyanocobalamin (Vitamin B12) 1,000 mcg IM QMONTH [facility] Stop: 10/12/18 10:01 Divalproex Sodium (Depakote Dr) 125 mg PO Q12HR [facility]; Protocol Stop: 11/19/18 20:59 Docusate Sodium (Colace) 100 mg PO DAILY [facility] Stop: 11/12/18 08:59 Last Admin: 09/20/18 09:25 Dose: Not Given Donepezil HCl (Aricept) 5 mg PO HS [facility] Stop: 11/12/18 20:59 Last Admin: 09/20/18 20:53 Dose: 5 mg Doxazosin Mesylate (Cardura) 2 mg PO HS [facility] Stop: 11/12/18 20:59 Last Admin: 09/20/18 20:53 Dose: 2 mg Fexofenadine HCl (Noemi) 60 mg PO BID [facility] Stop: 11/12/18 08:59 Last Admin: 09/20/18 17:31 Dose: Not Given Lorazepam (Ativan) 0.5 mg PO Q4HR PRN; Protocol PRN Reason: Anxiety Stop: 10/13/18 02:01 Last Admin: 09/19/18 20:49 Dose: 0.5 mg Magnesium Hydroxide (Milk Of Magnesia) 30 ml PO HS PRN PRN Reason: Constipation Memantine (Namenda) 5 mg PO DAILY [facility] Stop: 11/12/18 08:59 Last Admin: 09/20/18 09:26 Dose: 5 mg Multivitamins/Vitamin C (Theragran) 1 tab PO DAILY [facility] Stop: 11/12/18 08:59 Last Admin: 09/20/18 09:25 Dose: 1 tab Pantoprazole Sodium (Protonix) 40 mg PO DAILY@0730 [facility] Stop: 11/12/18 07:29 Last Admin: 09/20/18 06:48 Dose: 40 mg Quetiapine Fumarate (Seroquel) 200 mg PO BID [facility]; Protocol Stop: 11/12/18 08:59 Last Admin: 09/20/18 17:31 Dose: Not Given Sodium Phosphate (Fleet Enema) 135 ml RC DAILY PRN PRN Reason: Constipation Stop: 11/12/18 02:08 General: demented HEENT: NC/AT, PERRLA, EOMI, anicteric sclerae, throat clear Neck: Supple, No JVD, No thyromegaly, +2 carotid pulse wo bruit, No LAD, + JVD Cardiovascular: RRR, Normal S1, Normal S2, without murmur Abdomen: soft, non-tender, non-distended Extremities: clear Neurological: no change Internal Medicine Assmt/Plan - Assessment Assessment: 1.BPH. 2.DJD. 3.CONSTIPATION. 4.DEMENTIA. - Plan Plan: CONTINUE ON CURRENT MEDICATION AND DIET.
--- NOTE | 2018-09-21 04:02 | Progress Notes ---
DATE: 09/20/2018 SUBJECTIVE: The patient aggressive, attempting to bite staff, very unruly, very confused, disoriented, disorganized, nonsensical. The patient highly impulsive, unpredictable, concerns about safety of others, mostly concerns about his ability to be safe. The patient will likely need changes of his medications. He is on fairly high dose of Seroquel, Aricept, Namenda, but is still lashing out, acting out. PLAN: We will add Depakote to his regimen. JOB# [id number]
[2018-09-21] MEDS: Pantoprazole 40 mg EC Tab PO SCH (06:36)
[2018-09-21] MEDS: Atorvastatin Calcium 10 MG TAB PO SCH (09:10)
[2018-09-21] MEDS: Multivitamin Tab PO SCH (09:11)
[2018-09-21] MEDS: Fexofenadine 60 mg Tab PO SCH ×2 (09:21→17:17)
--- NOTE | 2018-09-21 18:45 | Internal Medicine Prog Note ---
Internal Medicine Subjective - Subjective Service Date: 09/21/18 Patient seen and examined:: with staff Patient is:: awake, in bed, confused Per staff patient has:: no adverse event Internal Medicine Objective - Results Result Diagrams: 09/13/18 00:20 09/13/18 00:25 Recent Labs: Laboratory Last Values WBC 5.5 Th/cmm (4.8-10.8) 09/13/18 00:20 RBC 3.97 Mil/cmm (3.80-5.80) 09/13/18 00:20 Hgb 13.1 gm/dL (12-16) 09/13/18 00:20 Hct 39.0 % (41.0-60) L 09/13/18 00:20 MCV 98.1 fl (80-99) 09/13/18 00:20 MCH 32.8 pg (27.0-31.0) H 09/13/18 00:20 MCHC Differential 33.5 pg (28.0-36.0) 09/13/18 00:20 RDW 13.1 % (11.5-20.0) 09/13/18 00:20 Plt Count 177 Th/cmm (150-400) 09/13/18 00:20 MPV 8.5 fl 09/13/18 00:20 Neutrophils % 67.0 % (40.0-80.0) 09/13/18 00:20 Lymphocytes % 19.0 % (20.0-50.0) L 09/13/18 00:20 Monocytes % 9.1 % (2.0-10.0) 09/13/18 00:20 Eosinophils % 4.7 % (0.0-5.0) 09/13/18 00:20 Basophils % 0.2 % (0.0-2.0) 09/13/18 00:20 Sodium 141 mEq/L (136-145) 09/13/18 00:25 Potassium 3.8 mEq/L (3.5-5.1) 09/13/18 00:25 Chloride 106 mEq/L (98-107) 09/13/18 00:25 Carbon Dioxide 25.7 mEq/L (21.0-31.0) 09/13/18 00:25 Anion Gap 13.1 (7.0-16.0) 09/13/18 00:25 BUN 16 mg/dL (7-25) 09/13/18 00:25 Creatinine 1.1 mg/dL (0.7-1.3) 09/13/18 00:25 Est GFR ( Amer) TNP 09/13/18 00:25 Est GFR (Non-Af Amer) TNP 09/13/18 00:25 BUN/Creatinine Ratio 14.5 09/13/18 00:25 Glucose 91 mg/dL (70-105) 09/13/18 00:25 Calcium 9.5 mg/dL (8.6-10.3) 09/13/18 00:25 Total Bilirubin 0.5 mg/dL (0.3-1.0) 09/13/18 00:25 AST 19 U/L (13-39) 09/13/18 00:25 ALT 16 U/L (7-52) 09/13/18 00:25 Alkaline Phosphatase 81 U/L (34-104) 09/13/18 00:25 Troponin I 0.01 ng/mL (0.01-0.05) 09/13/18 00:25 B-Natriuretic Peptide < 5.0 pg/mL (5.0-100.0) L 09/13/18 00:25 Total Protein 6.8 gm/dL (6.0-8.3) 09/13/18 00:25 Albumin 4.0 gm/dL (4.2-5.5) L 09/13/18 00:25 Globulin 2.8 gm/dL 09/13/18 00:25 Albumin/Globulin Ratio 1.4 (1.0-1.8) 09/13/18 00:25 Triglycerides 47 mg/dL (<150) 09/13/18 00:20 Cholesterol 114 mg/dL (<200) 09/13/18 00:20 LDL Cholesterol Direct 59 mg/dL (75-193) L 09/13/18 00:20 HDL Cholesterol 47 mg/dL (23-92) 09/13/18 00:20 TSH 1.37 uIU/ml (0.34-5.60) 09/13/18 00:25 Urine Source MIDSTREAM 09/13/18 20:40 Urine Color YELLOW 09/13/18 20:40 Urine Clarity CLEAR (CLEAR) 09/13/18 20:40 Urine pH 6.0 (4.6 - 8.0) 09/13/18 20:40 Ur Specific [place] >= 1.030 (1.005-1.030) 09/13/18 20:40 Urine Protein NEGATIVE mg/dL (NEGATIVE) 09/13/18 20:40 Urine Glucose (UA) NEGATIVE mg/dL (NEGATIVE) 09/13/18 20:40 Urine Ketones TRACE mg/dL (NEGATIVE) 09/13/18 20:40 Urine Blood NEGATIVE (NEGATIVE) 09/13/18 20:40 Urine Nitrate NEGATIVE (NEGATIVE) 09/13/18 20:40 Urine Bilirubin NEGATIVE (NEGATIVE) 09/13/18 20:40 Urine Urobilinogen 1.0 E.U./dL (0.2 - 1.0) 09/13/18 20:40 Ur Leukocyte Esterase TRACE (NEGATIVE) H 09/13/18 20:40 Urine RBC 0-2 /hpf (0-5) H 09/13/18 20:40 Urine WBC 2-5 /hpf (0-5) 09/13/18 20:40 Ur Epithelial Cells FEW /lpf (FEW) 09/13/18 20:40 Urine Bacteria 1+ /hpf (NONE SEEN) H 09/13/18 20:40 Urine Mucus FEW /lpf (FEW) 09/13/18 20:40 - Physical Exam Vitals and I&O: Vital Signs Temp 97.7 F 09/21/18 14:00 Pulse 88 09/21/18 14:00 Resp 20 09/21/18 14:00 BP 128/71 09/21/18 14:00 Pulse Ox 95 09/21/18 14:00 Intake & Output 09/20/18 09/21/18 09/21/18 18:59 06:59 18:59 Intake Total 120 720 Output Total 0 Balance 120 720 Intake: Oral 120 720 Output: Stool 0 Other: # Voids 3 4 # Bowel Movements 1 Active Medications: Current Medications Acetaminophen (Tylenol) 650 mg PO Q4HR PRN PRN Reason: Mild Pain / Temp above 100 Stop: 11/12/18 02:01 Al Hydrox/Mg Hydrox/Simethicone (Maalox) 30 ml PO Q4HR PRN PRN Reason: GI DISTRESS Stop: 11/12/18 02:01 Aspirin (Ecotrin) 81 mg PO DAILY [facility] Stop: 11/12/18 08:59 Last Admin: 09/21/18 09:02 Dose: Not Given Atorvastatin Calcium (Lipitor) 10 mg PO DAILY [facility]; Protocol Stop: 11/12/18 08:59 Last Admin: 09/21/18 09:10 Dose: Not Given Bisacodyl (Dulcolax 10 Mg Supp) 10 mg RC DAILY PRN PRN Reason: Constipation Stop: 11/12/18 23:12 Cyanocobalamin (Vitamin B12) 1,000 mcg IM QMONTH [facility] Stop: 10/12/18 10:01 Divalproex Sodium (Depakote Dr) 125 mg PO Q12HR [facility]; Protocol Stop: 11/19/18 20:59 Last Admin: 09/21/18 09:11 Dose: Not Given Docusate Sodium (Colace) 100 mg PO DAILY [facility] Stop: 11/12/18 08:59 Last Admin: 09/21/18 09:01 Dose: Not Given Donepezil HCl (Aricept) 5 mg PO HS [facility] Stop: 11/12/18 20:59 Last Admin: 09/20/18 20:53 Dose: 5 mg Doxazosin Mesylate (Cardura) 2 mg PO HS [facility] Stop: 11/12/18 20:59 Last Admin: 09/20/18 20:53 Dose: 2 mg Fexofenadine HCl (Noemi) 60 mg PO BID [facility] Stop: 11/12/18 08:59 Last Admin: 09/21/18 17:17 Dose: Not Given Lorazepam (Ativan) 0.5 mg PO Q4HR PRN; Protocol PRN Reason: Anxiety Stop: 10/13/18 02:01 Last Admin: 09/19/18 20:49 Dose: 0.5 mg Magnesium Hydroxide (Milk Of Magnesia) 30 ml PO HS PRN PRN Reason: Constipation Memantine (Namenda) 5 mg PO DAILY [facility] Stop: 11/12/18 08:59 Last Admin: 09/21/18 09:11 Dose: Not Given Multivitamins/Vitamin C (Theragran) 1 tab PO DAILY [facility] Stop: 11/12/18 08:59 Last Admin: 09/21/18 09:11 Dose: Not Given Pantoprazole Sodium (Protonix) 40 mg PO DAILY@0730 [facility] Stop: 11/12/18 07:29 Last Admin: 09/21/18 06:36 Dose: 40 mg Quetiapine Fumarate (Seroquel) 200 mg PO BID [facility]; Protocol Stop: 11/12/18 08:59 Last Admin: 09/21/18 17:17 Dose: Not Given Sodium Phosphate (Fleet Enema) 135 ml RC DAILY PRN PRN Reason: Constipation Stop: 11/12/18 02:08 General: demented HEENT: NC/AT, PERRLA, EOMI, anicteric sclerae, throat clear Neck: Supple, No JVD, No thyromegaly, +2 carotid pulse wo bruit, No LAD, + JVD Cardiovascular: RRR, Normal S1, Normal S2, without murmur Abdomen: soft, non-tender, non-distended Extremities: clear Neurological: no change Internal Medicine Assmt/Plan - Assessment Assessment: 1.BPH. 2.DJD. 3.CONSTIPATION. 4.DEMENTIA. - Plan Plan: CONTINUE ON CURRENT MEDICATION AND DIET. Nutritional Asmnt/Malnutr-PDOC - Dietary Evaluation Malnutrition Findings (Please click <Entered> for more info): Nutritional Asmnt/Malnutrition Start: 09/21/18 15: 13 Text: Status: Complete Freq: Protocol: Document 09/21/18 15:13 LCHENG (Rec: 09/21/18 15:35 [email or web address] [id number]) Nutritional Asmnt/Malnutrition Patient General Information Nutritional Screening Low Risk Diagnosis psychosis Pertinent Medical Hx/Surgical Hx HTN, chronic constipation, dementia, psychosis, BPH Subjective Information Pt seen walking in hallway, confused, looking for him room . Directed pt to dinning room for lunch. per EMR, PO intake 100%. Current Diet Order/ Nutrition Support cardiac, ANITA Pertinent Medications lipitor, vit b12, colace, theragran, protonix, seroquel Pertinent Labs 09/13 alb 4.0 Nutritional Hx/Data Height 1.83 m Height (Calculated Centimeters) 182.9 Current Weight (lbs) 72.575 kg Weight (Calculated Kilograms) 72.6 Weight (Calculated Grams) 34188.8 [place] Body Weight 178 Body Mass Index (BMI) 21.7 Weight Status Approriate GI Symptoms GI Symptoms None Last BM 4/3 Difficult in: None Skin Integrity/Comment: intact Current %PO Good (75-100%) Estimated Nutritional Goals BEE in Kcals: Using Current wt Calories/Kcals/Kg 25-30 Kcals Calculated 7430-4634 Protein: Using Current wt Protein g/k Protein Calculated 73 Fluid: ml 1825-2190ml (1ml/kcal) Nutritional Problem No current Nutrition Prob Problem N/A Malnutrition Alert Is there a minimum of two criteria No selected? Query Text:Check all the applicable criteria. A minimum of two criteria are recommended for diagnosis of either severe or non-severe malnutrition. Malnutrition Related to Morbid Obesity Malnutrition related to morbid obesity No Intervention/Recommendation Comments 1. Continue with cardiac, ANITA diet as ordered. 2. Monitor PO intake, wt, labs and skin integrity 3. F/U as low risk in 7 days Expected Outcomes/Goals Expected Outcomes/Goals 1. PO intake to meet at least 75% of nutritional needs. 2. Wt stability, skin to remain intact, labs to approach WNL.
--- NOTE | 2018-09-22 04:06 | Progress Notes ---
DATE: 09/21/2018 SUBJECTIVE: The patient aggressive, agitated, confused, biting staff, noted to be still biting staff. Mild improvement in his behaviors, very impulsive, unpredictable, requiring a higher level of prompting, redirection. ASSESSMENT: The patient unruly, aggressive, threatening, agitated, AO x name only, biting staff. Staff showing me bite mariee. PLAN: We will continue to monitor, titrate dosages. [facility]# [id number]
[2018-09-22] MEDS: Pantoprazole 40 mg EC Tab PO SCH (06:30)
[2018-09-22] MEDS: Atorvastatin Calcium 10 MG TAB PO SCH (09:51)
[2018-09-22] MEDS: Fexofenadine 60 mg Tab PO SCH ×2 (09:51→17:24)
[2018-09-22] MEDS: Multivitamin Tab PO SCH (09:51)
--- NOTE | 2018-09-22 20:45 | Internal Medicine Prog Note ---
Internal Medicine Subjective - Subjective Service Date: 09/22/18 Patient seen and examined:: with staff (HE FEELS BETTER) Patient is:: awake, in bed, confused Per staff patient has:: no adverse event Internal Medicine Objective - Results Result Diagrams: 09/13/18 00:20 09/13/18 00:25 Recent Labs: Laboratory Last Values WBC 5.5 Th/cmm (4.8-10.8) 09/13/18 00:20 RBC 3.97 Mil/cmm (3.80-5.80) 09/13/18 00:20 Hgb 13.1 gm/dL (12-16) 09/13/18 00:20 Hct 39.0 % (41.0-60) L 09/13/18 00:20 MCV 98.1 fl (80-99) 09/13/18 00:20 MCH 32.8 pg (27.0-31.0) H 09/13/18 00:20 MCHC Differential 33.5 pg (28.0-36.0) 09/13/18 00:20 RDW 13.1 % (11.5-20.0) 09/13/18 00:20 Plt Count 177 Th/cmm (150-400) 09/13/18 00:20 MPV 8.5 fl 09/13/18 00:20 Neutrophils % 67.0 % (40.0-80.0) 09/13/18 00:20 Lymphocytes % 19.0 % (20.0-50.0) L 09/13/18 00:20 Monocytes % 9.1 % (2.0-10.0) 09/13/18 00:20 Eosinophils % 4.7 % (0.0-5.0) 09/13/18 00:20 Basophils % 0.2 % (0.0-2.0) 09/13/18 00:20 Sodium 141 mEq/L (136-145) 09/13/18 00:25 Potassium 3.8 mEq/L (3.5-5.1) 09/13/18 00:25 Chloride 106 mEq/L (98-107) 09/13/18 00:25 Carbon Dioxide 25.7 mEq/L (21.0-31.0) 09/13/18 00:25 Anion Gap 13.1 (7.0-16.0) 09/13/18 00:25 BUN 16 mg/dL (7-25) 09/13/18 00:25 Creatinine 1.1 mg/dL (0.7-1.3) 09/13/18 00:25 Est GFR ( Amer) TNP 09/13/18 00:25 Est GFR (Non-Af Amer) TNP 09/13/18 00:25 BUN/Creatinine Ratio 14.5 09/13/18 00:25 Glucose 91 mg/dL (70-105) 09/13/18 00:25 Calcium 9.5 mg/dL (8.6-10.3) 09/13/18 00:25 Total Bilirubin 0.5 mg/dL (0.3-1.0) 09/13/18 00:25 AST 19 U/L (13-39) 09/13/18 00:25 ALT 16 U/L (7-52) 09/13/18 00:25 Alkaline Phosphatase 81 U/L (34-104) 09/13/18 00:25 Troponin I 0.01 ng/mL (0.01-0.05) 09/13/18 00:25 B-Natriuretic Peptide < 5.0 pg/mL (5.0-100.0) L 09/13/18 00:25 Total Protein 6.8 gm/dL (6.0-8.3) 09/13/18 00:25 Albumin 4.0 gm/dL (4.2-5.5) L 09/13/18 00:25 Globulin 2.8 gm/dL 09/13/18 00:25 Albumin/Globulin Ratio 1.4 (1.0-1.8) 09/13/18 00:25 Triglycerides 47 mg/dL (<150) 09/13/18 00:20 Cholesterol 114 mg/dL (<200) 09/13/18 00:20 LDL Cholesterol Direct 59 mg/dL (75-193) L 09/13/18 00:20 HDL Cholesterol 47 mg/dL (23-92) 09/13/18 00:20 TSH 1.37 uIU/ml (0.34-5.60) 09/13/18 00:25 Urine Source MIDSTREAM 09/13/18 20:40 Urine Color YELLOW 09/13/18 20:40 Urine Clarity CLEAR (CLEAR) 09/13/18 20:40 Urine pH 6.0 (4.6 - 8.0) 09/13/18 20:40 Ur Specific [place] >= 1.030 (1.005-1.030) 09/13/18 20:40 Urine Protein NEGATIVE mg/dL (NEGATIVE) 09/13/18 20:40 Urine Glucose (UA) NEGATIVE mg/dL (NEGATIVE) 09/13/18 20:40 Urine Ketones TRACE mg/dL (NEGATIVE) 09/13/18 20:40 Urine Blood NEGATIVE (NEGATIVE) 09/13/18 20:40 Urine Nitrate NEGATIVE (NEGATIVE) 09/13/18 20:40 Urine Bilirubin NEGATIVE (NEGATIVE) 09/13/18 20:40 Urine Urobilinogen 1.0 E.U./dL (0.2 - 1.0) 09/13/18 20:40 Ur Leukocyte Esterase TRACE (NEGATIVE) H 09/13/18 20:40 Urine RBC 0-2 /hpf (0-5) H 09/13/18 20:40 Urine WBC 2-5 /hpf (0-5) 09/13/18 20:40 Ur Epithelial Cells FEW /lpf (FEW) 09/13/18 20:40 Urine Bacteria 1+ /hpf (NONE SEEN) H 09/13/18 20:40 Urine Mucus FEW /lpf (FEW) 09/13/18 20:40 - Physical Exam Vitals and I&O: Vital Signs Temp 98.0 F 09/22/18 14:00 Pulse 88 09/22/18 14:00 Resp 20 09/22/18 14:00 BP 113/59 09/22/18 14:00 Pulse Ox 98 09/22/18 14:00 Intake & Output 09/22/18 09/22/18 09/23/18 06:59 18:59 06:59 Intake Total 240 960 Balance 240 960 Intake: Oral 240 840 Other 120 Other: # Voids 1 4 # Bowel Movements 0 Active Medications: Current Medications Acetaminophen (Tylenol) 650 mg PO Q4HR PRN PRN Reason: Mild Pain / Temp above 100 Stop: 11/12/18 02:01 Al Hydrox/Mg Hydrox/Simethicone (Maalox) 30 ml PO Q4HR PRN PRN Reason: GI DISTRESS Stop: 11/12/18 02:01 Aspirin (Ecotrin) 81 mg PO DAILY [facility] Stop: 11/12/18 08:59 Last Admin: 09/22/18 09:51 Dose: Not Given Atorvastatin Calcium (Lipitor) 10 mg PO DAILY [facility]; Protocol Stop: 11/12/18 08:59 Last Admin: 09/22/18 09:51 Dose: Not Given Bisacodyl (Dulcolax 10 Mg Supp) 10 mg RC DAILY PRN PRN Reason: Constipation Stop: 11/12/18 23:12 Cyanocobalamin (Vitamin B12) 1,000 mcg IM QMONTH [facility] Stop: 10/12/18 10:01 Divalproex Sodium (Depakote Dr) 125 mg PO Q12HR [facility]; Protocol Stop: 11/19/18 20:59 Last Admin: 09/22/18 09:51 Dose: Not Given Docusate Sodium (Colace) 100 mg PO DAILY [facility] Stop: 11/12/18 08:59 Last Admin: 09/22/18 09:51 Dose: Not Given Donepezil HCl (Aricept) 5 mg PO HS [facility] Stop: 11/12/18 20:59 Last Admin: 09/21/18 20:10 Dose: 5 mg Doxazosin Mesylate (Cardura) 2 mg PO HS [facility] Stop: 11/12/18 20:59 Last Admin: 09/21/18 20:10 Dose: 2 mg Fexofenadine HCl (Noemi) 60 mg PO BID [facility] Stop: 11/12/18 08:59 Last Admin: 09/22/18 17:24 Dose: 60 mg Lorazepam (Ativan) 0.5 mg PO Q4HR PRN; Protocol PRN Reason: Anxiety Stop: 10/13/18 02:01 Last Admin: 09/19/18 20:49 Dose: 0.5 mg Magnesium Hydroxide (Milk Of Magnesia) 30 ml PO HS PRN PRN Reason: Constipation Memantine (Namenda) 5 mg PO DAILY [facility] Stop: 11/12/18 08:59 Last Admin: 09/22/18 09:51 Dose: Not Given Multivitamins/Vitamin C (Theragran) 1 tab PO DAILY [facility] Stop: 11/12/18 08:59 Last Admin: 09/22/18 09:51 Dose: Not Given Pantoprazole Sodium (Protonix) 40 mg PO DAILY@0730 [facility] Stop: 11/12/18 07:29 Last Admin: 09/22/18 06:30 Dose: 40 mg Quetiapine Fumarate (Seroquel) 200 mg PO BID [facility]EN; Protocol Stop: 11/12/18 08:59 Last Admin: 09/22/18 17:24 Dose: 200 mg Sodium Phosphate (Fleet Enema) 135 ml RC DAILY PRN PRN Reason: Constipation Stop: 11/12/18 02:08 General: demented HEENT: NC/AT, PERRLA, EOMI, anicteric sclerae, throat clear Neck: Supple, No JVD, No thyromegaly, +2 carotid pulse wo bruit, No LAD, + JVD Cardiovascular: RRR, Normal S1, Normal S2, without murmur Abdomen: soft, non-tender, non-distended Extremities: clear Neurological: no change Internal Medicine Assmt/Plan - Assessment Assessment: 1.BPH. 2.DJD. 3.CONSTIPATION. 4.DEMENTIA. - Plan Plan: CONTINUE ON CURRENT MEDICATION AND DIET. Nutritional Asmnt/Malnutr-PDOC - Dietary Evaluation Malnutrition Findings (Please click <Entered> for more info): Nutritional Asmnt/Malnutrition Start: 09/21/18 15: 13 Text: Status: Complete Freq: Protocol: Document 09/21/18 15:13 LCHENG (Rec: 09/21/18 15:35 [email or web address] [id number]) Nutritional Asmnt/Malnutrition Patient General Information Nutritional Screening Low Risk Diagnosis psychosis Pertinent Medical Hx/Surgical Hx HTN, chronic constipation, dementia, psychosis, BPH Subjective Information Pt seen walking in hallway, confused, looking for him room . Directed pt to dinning room for lunch. per EMR, PO intake 100%. Current Diet Order/ Nutrition Support cardiac, ANITA Pertinent Medications lipitor, vit b12, colace, theragran, protonix, seroquel Pertinent Labs 09/13 alb 4.0 Nutritional Hx/Data Height 1.83 m Height (Calculated Centimeters) 182.9 Current Weight (lbs) 72.575 kg Weight (Calculated Kilograms) 72.6 Weight (Calculated Grams) 10564.8 Exchange Body Weight 178 Body Mass Index (BMI) 21.7 Weight Status Approriate GI Symptoms GI Symptoms None Last BM 4/3 Difficult in: None Skin Integrity/Comment: intact Current %PO Good (75-100%) Estimated Nutritional Goals BEE in Kcals: Using Current wt Calories/Kcals/Kg 25-30 Kcals Calculated 0155-0769 Protein: Using Current wt Protein g/k Protein Calculated 73 Fluid: ml 1825-2190ml (1ml/kcal) Nutritional Problem No current Nutrition Prob Problem N/A Malnutrition Alert Is there a minimum of two criteria No selected? Query Text:Check all the applicable criteria. A minimum of two criteria are recommended for diagnosis of either severe or non-severe malnutrition. Malnutrition Related to Morbid Obesity Malnutrition related to morbid obesity No Intervention/Recommendation Comments 1. Continue with cardiac, ANITA diet as ordered. 2. Monitor PO intake, wt, labs and skin integrity 3. F/U as low risk in 7 days Expected Outcomes/Goals Expected Outcomes/Goals 1. PO intake to meet at least 75% of nutritional needs. 2. Wt stability, skin to remain intact, labs to approach WNL.
[2018-09-23] MEDS: Pantoprazole 40 mg EC Tab PO SCH (06:48)
--- NOTE | 2018-09-23 07:31 | Progress Notes ---
DATE: SUBJECTIVE: Chart reviewed and the patient interviewed. Also discussed the patient's condition with the staff and reviewed the records and labs. The patient still has episodes of irritability and anger and mood swings. The patient also has periods of aggression and confusion. Also, he is still trying to hit staff at times. Otherwise, the patient showed some improvement in following the directions and his impulsivity. ASSESSMENT: The patient is still agitated and confused. TREATMENT PLAN: Continue to monitor his behavior and his condition closely. Also, continue Depakote in a dose of 125 mg twice a day. Also, we will monitor his intake of Aricept and will continue also Namenda in a dose of 30 mg p.r.n., also on Seroquel 200 mg twice a day. Also, we will follow up. JOB# [id number]
[2018-09-23] MEDS: Atorvastatin Calcium 10 MG TAB PO SCH ×2 (09:19→09:31)
[2018-09-23] MEDS: Multivitamin Tab PO SCH ×2 (09:19→09:31)
[2018-09-23] MEDS: Fexofenadine 60 mg Tab PO SCH ×3 (09:20→17:47)
--- NOTE | 2018-09-23 16:59 | Internal Medicine Prog Note ---
Internal Medicine Subjective - Subjective Service Date: 09/23/18 Patient seen and examined:: without staff Patient is:: awake, in bed, confused Per staff patient has:: no adverse event Internal Medicine Objective - Results Result Diagrams: 09/13/18 00:20 09/13/18 00:25 Recent Labs: Laboratory Last Values WBC 5.5 Th/cmm (4.8-10.8) 09/13/18 00:20 RBC 3.97 Mil/cmm (3.80-5.80) 09/13/18 00:20 Hgb 13.1 gm/dL (12-16) 09/13/18 00:20 Hct 39.0 % (41.0-60) L 09/13/18 00:20 MCV 98.1 fl (80-99) 09/13/18 00:20 MCH 32.8 pg (27.0-31.0) H 09/13/18 00:20 MCHC Differential 33.5 pg (28.0-36.0) 09/13/18 00:20 RDW 13.1 % (11.5-20.0) 09/13/18 00:20 Plt Count 177 Th/cmm (150-400) 09/13/18 00:20 MPV 8.5 fl 09/13/18 00:20 Neutrophils % 67.0 % (40.0-80.0) 09/13/18 00:20 Lymphocytes % 19.0 % (20.0-50.0) L 09/13/18 00:20 Monocytes % 9.1 % (2.0-10.0) 09/13/18 00:20 Eosinophils % 4.7 % (0.0-5.0) 09/13/18 00:20 Basophils % 0.2 % (0.0-2.0) 09/13/18 00:20 Sodium 141 mEq/L (136-145) 09/13/18 00:25 Potassium 3.8 mEq/L (3.5-5.1) 09/13/18 00:25 Chloride 106 mEq/L (98-107) 09/13/18 00:25 Carbon Dioxide 25.7 mEq/L (21.0-31.0) 09/13/18 00:25 Anion Gap 13.1 (7.0-16.0) 09/13/18 00:25 BUN 16 mg/dL (7-25) 09/13/18 00:25 Creatinine 1.1 mg/dL (0.7-1.3) 09/13/18 00:25 Est GFR ( Amer) TNP 09/13/18 00:25 Est GFR (Non-Af Amer) TNP 09/13/18 00:25 BUN/Creatinine Ratio 14.5 09/13/18 00:25 Glucose 91 mg/dL (70-105) 09/13/18 00:25 Calcium 9.5 mg/dL (8.6-10.3) 09/13/18 00:25 Total Bilirubin 0.5 mg/dL (0.3-1.0) 09/13/18 00:25 AST 19 U/L (13-39) 09/13/18 00:25 ALT 16 U/L (7-52) 09/13/18 00:25 Alkaline Phosphatase 81 U/L (34-104) 09/13/18 00:25 Troponin I 0.01 ng/mL (0.01-0.05) 09/13/18 00:25 B-Natriuretic Peptide < 5.0 pg/mL (5.0-100.0) L 09/13/18 00:25 Total Protein 6.8 gm/dL (6.0-8.3) 09/13/18 00:25 Albumin 4.0 gm/dL (4.2-5.5) L 09/13/18 00:25 Globulin 2.8 gm/dL 09/13/18 00:25 Albumin/Globulin Ratio 1.4 (1.0-1.8) 09/13/18 00:25 Triglycerides 47 mg/dL (<150) 09/13/18 00:20 Cholesterol 114 mg/dL (<200) 09/13/18 00:20 LDL Cholesterol Direct 59 mg/dL (75-193) L 09/13/18 00:20 HDL Cholesterol 47 mg/dL (23-92) 09/13/18 00:20 TSH 1.37 uIU/ml (0.34-5.60) 09/13/18 00:25 Urine Source MIDSTREAM 09/13/18 20:40 Urine Color YELLOW 09/13/18 20:40 Urine Clarity CLEAR (CLEAR) 09/13/18 20:40 Urine pH 6.0 (4.6 - 8.0) 09/13/18 20:40 Ur Specific [place] >= 1.030 (1.005-1.030) 09/13/18 20:40 Urine Protein NEGATIVE mg/dL (NEGATIVE) 09/13/18 20:40 Urine Glucose (UA) NEGATIVE mg/dL (NEGATIVE) 09/13/18 20:40 Urine Ketones TRACE mg/dL (NEGATIVE) 09/13/18 20:40 Urine Blood NEGATIVE (NEGATIVE) 09/13/18 20:40 Urine Nitrate NEGATIVE (NEGATIVE) 09/13/18 20:40 Urine Bilirubin NEGATIVE (NEGATIVE) 09/13/18 20:40 Urine Urobilinogen 1.0 E.U./dL (0.2 - 1.0) 09/13/18 20:40 Ur Leukocyte Esterase TRACE (NEGATIVE) H 09/13/18 20:40 Urine RBC 0-2 /hpf (0-5) H 09/13/18 20:40 Urine WBC 2-5 /hpf (0-5) 09/13/18 20:40 Ur Epithelial Cells FEW /lpf (FEW) 09/13/18 20:40 Urine Bacteria 1+ /hpf (NONE SEEN) H 09/13/18 20:40 Urine Mucus FEW /lpf (FEW) 09/13/18 20:40 - Physical Exam Vitals and I&O: Vital Signs Temp 98.5 F 09/23/18 14:00 Pulse 63 09/23/18 14:00 Resp 18 09/23/18 14:00 BP 108/61 09/23/18 14:00 Pulse Ox 96 09/23/18 14:00 Intake & Output 09/22/18 09/23/18 09/23/18 18:59 06:59 18:59 Intake Total 960 Balance 960 Intake: Oral 840 Other 120 Other: # Voids 4 # Bowel Movements 0 Active Medications: Current Medications Acetaminophen (Tylenol) 650 mg PO Q4HR PRN PRN Reason: Mild Pain / Temp above 100 Stop: 11/12/18 02:01 Al Hydrox/Mg Hydrox/Simethicone (Maalox) 30 ml PO Q4HR PRN PRN Reason: GI DISTRESS Stop: 11/12/18 02:01 Aspirin (Ecotrin) 81 mg PO DAILY [facility] Stop: 11/12/18 08:59 Last Admin: 09/23/18 09:31 Dose: Not Given Atorvastatin Calcium (Lipitor) 10 mg PO DAILY [facility]; Protocol Stop: 11/12/18 08:59 Last Admin: 09/23/18 09:31 Dose: Not Given Bisacodyl (Dulcolax 10 Mg Supp) 10 mg RC DAILY PRN PRN Reason: Constipation Stop: 11/12/18 23:12 Cyanocobalamin (Vitamin B12) 1,000 mcg IM QMONTH [facility] Stop: 10/12/18 10:01 Divalproex Sodium (Depakote Dr) 125 mg PO Q12HR [facility]; Protocol Stop: 11/19/18 20:59 Last Admin: 09/23/18 09:30 Dose: Not Given Docusate Sodium (Colace) 100 mg PO DAILY [facility] Stop: 11/12/18 08:59 Last Admin: 09/23/18 09:31 Dose: 100 mg Donepezil HCl (Aricept) 5 mg PO HS [facility] Stop: 11/12/18 20:59 Last Admin: 09/22/18 21:03 Dose: 5 mg Doxazosin Mesylate (Cardura) 2 mg PO HS [facility] Stop: 11/12/18 20:59 Last Admin: 09/22/18 21:03 Dose: 2 mg Fexofenadine HCl (Noemi) 60 mg PO BID [facility] Stop: 11/12/18 08:59 Last Admin: 09/23/18 09:31 Dose: Not Given Lorazepam (Ativan) 0.5 mg PO Q4HR PRN; Protocol PRN Reason: Anxiety Stop: 10/13/18 02:01 Last Admin: 09/19/18 20:49 Dose: 0.5 mg Magnesium Hydroxide (Milk Of Magnesia) 30 ml PO HS PRN PRN Reason: Constipation Memantine (Namenda) 5 mg PO DAILY [facility] Stop: 11/12/18 08:59 Last Admin: 09/23/18 09:31 Dose: Not Given Multivitamins/Vitamin C (Theragran) 1 tab PO DAILY [facility] Stop: 11/12/18 08:59 Last Admin: 09/23/18 09:31 Dose: Not Given Pantoprazole Sodium (Protonix) 40 mg PO DAILY@0730 [facility] Stop: 11/12/18 07:29 Last Admin: 09/23/18 06:48 Dose: 40 mg Quetiapine Fumarate (Seroquel) 200 mg PO BID [facility]; Protocol Stop: 11/12/18 08:59 Last Admin: 09/23/18 09:31 Dose: Not Given Sodium Phosphate (Fleet Enema) 135 ml RC DAILY PRN PRN Reason: Constipation Stop: 11/12/18 02:08 General: demented HEENT: NC/AT, PERRLA, EOMI, anicteric sclerae, throat clear Neck: Supple, No JVD, No thyromegaly, +2 carotid pulse wo bruit, No LAD, + JVD Cardiovascular: RRR, Normal S1, Normal S2, without murmur Abdomen: soft, non-tender, non-distended Extremities: clear Neurological: no change Internal Medicine Assmt/Plan - Assessment Assessment: 1.BPH. 2.DJD. 3.CONSTIPATION. 4.DEMENTIA. - Plan Plan: CONTINUE ON CURRENT MEDICATION AND DIET. Nutritional Asmnt/Malnutr-PDOC - Dietary Evaluation Malnutrition Findings (Please click <Entered> for more info): Nutritional Asmnt/Malnutrition Start: 09/21/18 15: 13 Text: Status: Complete Freq: Protocol: Document 09/21/18 15:13 LCHENG (Rec: 09/21/18 15:35 [id number]) Nutritional Asmnt/Malnutrition Patient General Information Nutritional Screening Low Risk Diagnosis psychosis Pertinent Medical Hx/Surgical Hx HTN, chronic constipation, dementia, psychosis, BPH Subjective Information Pt seen walking in hallway, confused, looking for him room . Directed pt to dinning room for lunch. per EMR, PO intake 100%. Current Diet Order/ Nutrition Support cardiac, ANITA Pertinent Medications lipitor, vit b12, colace, theragran, protonix, seroquel Pertinent Labs 09/13 alb 4.0 Nutritional Hx/Data Height 1.83 m Height (Calculated Centimeters) 182.9 Current Weight (lbs) 72.575 kg Weight (Calculated Kilograms) 72.6 Weight (Calculated Grams) 69118.8 [place] Body Weight 178 Body Mass Index (BMI) 21.7 Weight Status Approriate GI Symptoms GI Symptoms None Last BM 4/3 Difficult in: None Skin Integrity/Comment: intact Current %PO Good (75-100%) Estimated Nutritional Goals BEE in Kcals: Using Current wt Calories/Kcals/Kg 25-30 Kcals Calculated 3900-9384 Protein: Using Current wt Protein g/k Protein Calculated 73 Fluid: ml 1825-2190ml (1ml/kcal) Nutritional Problem No current Nutrition Prob Problem N/A Malnutrition Alert Is there a minimum of two criteria No selected? Query Text:Check all the applicable criteria. A minimum of two criteria are recommended for diagnosis of either severe or non-severe malnutrition. Malnutrition Related to Morbid Obesity Malnutrition related to morbid obesity No Intervention/Recommendation Comments 1. Continue with cardiac, ANITA diet as ordered. 2. Monitor PO intake, wt, labs and skin integrity 3. F/U as low risk in 7 days Expected Outcomes/Goals Expected Outcomes/Goals 1. PO intake to meet at least 75% of nutritional needs. 2. Wt stability, skin to remain intact, labs to approach WNL.
--- NOTE | 2018-09-24 05:16 | Progress Notes ---
DATE: 09/23/2018 SUBJECTIVE: Case was discussed with staff of the patient, reviewed records. The patient is a well-known case, I admitted him covering for Dr. Powers. The patient continues to be irritable, angry and ruiz. aggression and confusion, at times trying to hit staff, unpredictable and impulsive. His Depakote was continued. He is on Namenda, Aricept, and Seroquel. No side effects of the medication, no sedation, no nausea, no extrapyramidal symptoms. We will continue to work with the patient in group therapy, milieu therapy, and adjust medications as needed. JOB# [id number] GAYLE
[2018-09-24] MEDS: Pantoprazole 40 mg EC Tab PO SCH (06:33)
[2018-09-24] MEDS: Atorvastatin Calcium 10 MG TAB PO SCH (09:06)
[2018-09-24] MEDS: Multivitamin Tab PO SCH (09:07)
--- NOTE | 2018-09-24 18:56 | Internal Medicine Prog Note ---
Internal Medicine Subjective - Subjective Service Date: 09/24/18 Patient seen and examined:: with staff Patient is:: awake, in bed, confused Per staff patient has:: no adverse event Internal Medicine Objective - Results Result Diagrams: 09/13/18 00:20 09/13/18 00:25 Recent Labs: Laboratory Last Values WBC 5.5 Th/cmm (4.8-10.8) 09/13/18 00:20 RBC 3.97 Mil/cmm (3.80-5.80) 09/13/18 00:20 Hgb 13.1 gm/dL (12-16) 09/13/18 00:20 Hct 39.0 % (41.0-60) L 09/13/18 00:20 MCV 98.1 fl (80-99) 09/13/18 00:20 MCH 32.8 pg (27.0-31.0) H 09/13/18 00:20 MCHC Differential 33.5 pg (28.0-36.0) 09/13/18 00:20 RDW 13.1 % (11.5-20.0) 09/13/18 00:20 Plt Count 177 Th/cmm (150-400) 09/13/18 00:20 MPV 8.5 fl 09/13/18 00:20 Neutrophils % 67.0 % (40.0-80.0) 09/13/18 00:20 Lymphocytes % 19.0 % (20.0-50.0) L 09/13/18 00:20 Monocytes % 9.1 % (2.0-10.0) 09/13/18 00:20 Eosinophils % 4.7 % (0.0-5.0) 09/13/18 00:20 Basophils % 0.2 % (0.0-2.0) 09/13/18 00:20 Sodium 141 mEq/L (136-145) 09/13/18 00:25 Potassium 3.8 mEq/L (3.5-5.1) 09/13/18 00:25 Chloride 106 mEq/L (98-107) 09/13/18 00:25 Carbon Dioxide 25.7 mEq/L (21.0-31.0) 09/13/18 00:25 Anion Gap 13.1 (7.0-16.0) 09/13/18 00:25 BUN 16 mg/dL (7-25) 09/13/18 00:25 Creatinine 1.1 mg/dL (0.7-1.3) 09/13/18 00:25 Est GFR ( Amer) TNP 09/13/18 00:25 Est GFR (Non-Af Amer) TNP 09/13/18 00:25 BUN/Creatinine Ratio 14.5 09/13/18 00:25 Glucose 91 mg/dL (70-105) 09/13/18 00:25 Calcium 9.5 mg/dL (8.6-10.3) 09/13/18 00:25 Total Bilirubin 0.5 mg/dL (0.3-1.0) 09/13/18 00:25 AST 19 U/L (13-39) 09/13/18 00:25 ALT 16 U/L (7-52) 09/13/18 00:25 Alkaline Phosphatase 81 U/L (34-104) 09/13/18 00:25 Troponin I 0.01 ng/mL (0.01-0.05) 09/13/18 00:25 B-Natriuretic Peptide < 5.0 pg/mL (5.0-100.0) L 09/13/18 00:25 Total Protein 6.8 gm/dL (6.0-8.3) 09/13/18 00:25 Albumin 4.0 gm/dL (4.2-5.5) L 09/13/18 00:25 Globulin 2.8 gm/dL 09/13/18 00:25 Albumin/Globulin Ratio 1.4 (1.0-1.8) 09/13/18 00:25 Triglycerides 47 mg/dL (<150) 09/13/18 00:20 Cholesterol 114 mg/dL (<200) 09/13/18 00:20 LDL Cholesterol Direct 59 mg/dL (75-193) L 09/13/18 00:20 HDL Cholesterol 47 mg/dL (23-92) 09/13/18 00:20 TSH 1.37 uIU/ml (0.34-5.60) 09/13/18 00:25 Urine Source MIDSTREAM 09/13/18 20:40 Urine Color YELLOW 09/13/18 20:40 Urine Clarity CLEAR (CLEAR) 09/13/18 20:40 Urine pH 6.0 (4.6 - 8.0) 09/13/18 20:40 Ur Specific [place] >= 1.030 (1.005-1.030) 09/13/18 20:40 Urine Protein NEGATIVE mg/dL (NEGATIVE) 09/13/18 20:40 Urine Glucose (UA) NEGATIVE mg/dL (NEGATIVE) 09/13/18 20:40 Urine Ketones TRACE mg/dL (NEGATIVE) 09/13/18 20:40 Urine Blood NEGATIVE (NEGATIVE) 09/13/18 20:40 Urine Nitrate NEGATIVE (NEGATIVE) 09/13/18 20:40 Urine Bilirubin NEGATIVE (NEGATIVE) 09/13/18 20:40 Urine Urobilinogen 1.0 E.U./dL (0.2 - 1.0) 09/13/18 20:40 Ur Leukocyte Esterase TRACE (NEGATIVE) H 09/13/18 20:40 Urine RBC 0-2 /hpf (0-5) H 09/13/18 20:40 Urine WBC 2-5 /hpf (0-5) 09/13/18 20:40 Ur Epithelial Cells FEW /lpf (FEW) 09/13/18 20:40 Urine Bacteria 1+ /hpf (NONE SEEN) H 09/13/18 20:40 Urine Mucus FEW /lpf (FEW) 09/13/18 20:40 - Physical Exam Vitals and I&O: Vital Signs Temp 97.1 F 09/24/18 06:13 Pulse 83 09/24/18 06:13 Resp 20 09/24/18 06:13 BP 114/67 09/24/18 06:13 Pulse Ox 99 09/24/18 06:13 Intake & Output 09/23/18 09/24/18 09/24/18 18:59 06:59 18:59 Intake Total 1500 120 Balance 1500 120 Intake: Oral 1500 120 Other: # Voids 3 3 # Bowel Movements 0 Active Medications: Current Medications Acetaminophen (Tylenol) 650 mg PO Q4HR PRN PRN Reason: Mild Pain / Temp above 100 Stop: 11/12/18 02:01 Al Hydrox/Mg Hydrox/Simethicone (Maalox) 30 ml PO Q4HR PRN PRN Reason: GI DISTRESS Stop: 11/12/18 02:01 Aspirin (Ecotrin) 81 mg PO DAILY [facility] Stop: 11/12/18 08:59 Last Admin: 09/24/18 09:07 Dose: 81 mg Atorvastatin Calcium (Lipitor) 10 mg PO DAILY [facility]; Protocol Stop: 11/12/18 08:59 Last Admin: 09/24/18 09:06 Dose: 10 mg Bisacodyl (Dulcolax 10 Mg Supp) 10 mg RC DAILY PRN PRN Reason: Constipation Stop: 11/12/18 23:12 Cyanocobalamin (Vitamin B12) 1,000 mcg IM QMONTH [facility] Stop: 10/12/18 10:01 Divalproex Sodium (Depakote Dr) 125 mg PO Q12HR [facility]; Protocol Stop: 11/19/18 20:59 Last Admin: 09/24/18 09:06 Dose: 125 mg Docusate Sodium (Colace) 100 mg PO DAILY [facility] Stop: 11/12/18 08:59 Last Admin: 09/24/18 09:05 Dose: 100 mg Donepezil HCl (Aricept) 5 mg PO HS [facility] Stop: 11/12/18 20:59 Last Admin: 09/23/18 20:42 Dose: 5 mg Doxazosin Mesylate (Cardura) 2 mg PO HS [facility] Stop: 11/12/18 20:59 Last Admin: 09/23/18 20:42 Dose: 2 mg Fexofenadine HCl (Noemi) 60 mg PO BID [facility] Stop: 11/12/18 08:59 Last Admin: 09/23/18 17:47 Dose: Not Given Lorazepam (Ativan) 0.5 mg PO Q4HR PRN; Protocol PRN Reason: Anxiety Stop: 10/13/18 02:01 Last Admin: 09/19/18 20:49 Dose: 0.5 mg Magnesium Hydroxide (Milk Of Magnesia) 30 ml PO HS PRN PRN Reason: Constipation Memantine (Namenda) 5 mg PO BID [facility] Stop: 11/23/18 16:59 Last Admin: 09/24/18 16:32 Dose: 5 mg Multivitamins/Vitamin C (Theragran) 1 tab PO DAILY [facility] Stop: 11/12/18 08:59 Last Admin: 09/24/18 09:07 Dose: 1 tab Pantoprazole Sodium (Protonix) 40 mg PO DAILY@0730 [facility] Stop: 11/12/18 07:29 Last Admin: 09/24/18 06:33 Dose: Not Given Quetiapine Fumarate (Seroquel) 200 mg PO BID [facility]; Protocol Stop: 11/12/18 08:59 Last Admin: 09/24/18 16:32 Dose: 200 mg Sodium Phosphate (Fleet Enema) 135 ml RC DAILY PRN PRN Reason: Constipation Stop: 11/12/18 02:08 General: demented HEENT: NC/AT, PERRLA, EOMI, anicteric sclerae, throat clear Neck: Supple, No JVD, No thyromegaly, +2 carotid pulse wo bruit, No LAD, + JVD Cardiovascular: RRR, Normal S1, Normal S2, without murmur Abdomen: soft, non-tender, non-distended Extremities: clear Neurological: no change Internal Medicine Assmt/Plan - Assessment Assessment: 1.BPH. 2.DJD. 3.CONSTIPATION. 4.DEMENTIA. - Plan Plan: CONTINUE ON CURRENT MEDICATION AND DIET. Nutritional Asmnt/Malnutr-PDOC - Dietary Evaluation Malnutrition Findings (Please click <Entered> for more info): Nutritional Asmnt/Malnutrition Start: 09/21/18 15: 13 Text: Status: Complete Freq: Protocol: Document 09/21/18 15:13 LCHENG (Rec: 09/21/18 15:35 LCHENG [id number]) Nutritional Asmnt/Malnutrition Patient General Information Nutritional Screening Low Risk Diagnosis psychosis Pertinent Medical Hx/Surgical Hx HTN, chronic constipation, dementia, psychosis, BPH Subjective Information Pt seen walking in hallway, confused, looking for him room . Directed pt to dinning room for lunch. per EMR, PO intake 100%. Current Diet Order/ Nutrition Support cardiac, ANITA Pertinent Medications lipitor, vit b12, colace, theragran, protonix, seroquel Pertinent Labs 09/13 alb 4.0 Nutritional Hx/Data Height 1.83 m Height (Calculated Centimeters) 182.9 Current Weight (lbs) 72.575 kg Weight (Calculated Kilograms) 72.6 Weight (Calculated Grams) 76472.8 [place] Body Weight 178 Body Mass Index (BMI) 21.7 Weight Status Approriate GI Symptoms GI Symptoms None Last BM 4/3 Difficult in: None Skin Integrity/Comment: intact Current %PO Good (75-100%) Estimated Nutritional Goals BEE in Kcals: Using Current wt Calories/Kcals/Kg 25-30 Kcals Calculated 7184-1570 Protein: Using Current wt Protein g/k Protein Calculated 73 Fluid: ml 1825-2190ml (1ml/kcal) Nutritional Problem No current Nutrition Prob Problem N/A Malnutrition Alert Is there a minimum of two criteria No selected? Query Text:Check all the applicable criteria. A minimum of two criteria are recommended for diagnosis of either severe or non-severe malnutrition. Malnutrition Related to Morbid Obesity Malnutrition related to morbid obesity No Intervention/Recommendation Comments 1. Continue with cardiac, ANITA diet as ordered. 2. Monitor PO intake, wt, labs and skin integrity 3. F/U as low risk in 7 days Expected Outcomes/Goals Expected Outcomes/Goals 1. PO intake to meet at least 75% of nutritional needs. 2. Wt stability, skin to remain intact, labs to approach WNL.
--- NOTE | 2018-09-25 03:04 | Progress Notes ---
DATE: 09/24/2018 FOLLOWUP PROGRESS NOTE PROGRESS ON THE UNIT: Case was discussed with staff of the patient, reviewed records. The patient continues to be confused, irritable, angry, has been intrusive, going to different patients' rooms, needing redirection, unpredictable, impulsive. He is demented, unable to make a safe plan for self-care. He is compliant with the medication with no side effects, no sedation, no nausea. I will be increasing his Namenda to twice a day. We will continue to work with the patient in group therapy and milieu therapy, adjust the medication as needed. JOB# [id number]
[2018-09-25] MEDS: Pantoprazole 40 mg EC Tab PO SCH (06:52)
[2018-09-25] MEDS: Atorvastatin Calcium 10 MG TAB PO SCH (09:14)
[2018-09-25] MEDS: Multivitamin Tab PO SCH (09:14)
[2018-09-25] MEDS: Fexofenadine 60 mg Tab PO SCH ×2 (09:18→16:32)
--- NOTE | 2018-09-25 23:45 | Internal Medicine Prog Note ---
Internal Medicine Subjective - Subjective Service Date: 09/25/18 Patient seen and examined:: without staff Patient is:: awake, in bed, confused Per staff patient has:: no adverse event Internal Medicine Objective - Results Result Diagrams: 09/13/18 00:20 09/13/18 00:25 Recent Labs: Laboratory Last Values WBC 5.5 Th/cmm (4.8-10.8) 09/13/18 00:20 RBC 3.97 Mil/cmm (3.80-5.80) 09/13/18 00:20 Hgb 13.1 gm/dL (12-16) 09/13/18 00:20 Hct 39.0 % (41.0-60) L 09/13/18 00:20 MCV 98.1 fl (80-99) 09/13/18 00:20 MCH 32.8 pg (27.0-31.0) H 09/13/18 00:20 MCHC Differential 33.5 pg (28.0-36.0) 09/13/18 00:20 RDW 13.1 % (11.5-20.0) 09/13/18 00:20 Plt Count 177 Th/cmm (150-400) 09/13/18 00:20 MPV 8.5 fl 09/13/18 00:20 Neutrophils % 67.0 % (40.0-80.0) 09/13/18 00:20 Lymphocytes % 19.0 % (20.0-50.0) L 09/13/18 00:20 Monocytes % 9.1 % (2.0-10.0) 09/13/18 00:20 Eosinophils % 4.7 % (0.0-5.0) 09/13/18 00:20 Basophils % 0.2 % (0.0-2.0) 09/13/18 00:20 Sodium 141 mEq/L (136-145) 09/13/18 00:25 Potassium 3.8 mEq/L (3.5-5.1) 09/13/18 00:25 Chloride 106 mEq/L (98-107) 09/13/18 00:25 Carbon Dioxide 25.7 mEq/L (21.0-31.0) 09/13/18 00:25 Anion Gap 13.1 (7.0-16.0) 09/13/18 00:25 BUN 16 mg/dL (7-25) 09/13/18 00:25 Creatinine 1.1 mg/dL (0.7-1.3) 09/13/18 00:25 Est GFR ( Amer) TNP 09/13/18 00:25 Est GFR (Non-Af Amer) TNP 09/13/18 00:25 BUN/Creatinine Ratio 14.5 09/13/18 00:25 Glucose 91 mg/dL (70-105) 09/13/18 00:25 Calcium 9.5 mg/dL (8.6-10.3) 09/13/18 00:25 Total Bilirubin 0.5 mg/dL (0.3-1.0) 09/13/18 00:25 AST 19 U/L (13-39) 09/13/18 00:25 ALT 16 U/L (7-52) 09/13/18 00:25 Alkaline Phosphatase 81 U/L (34-104) 09/13/18 00:25 Troponin I 0.01 ng/mL (0.01-0.05) 09/13/18 00:25 B-Natriuretic Peptide < 5.0 pg/mL (5.0-100.0) L 09/13/18 00:25 Total Protein 6.8 gm/dL (6.0-8.3) 09/13/18 00:25 Albumin 4.0 gm/dL (4.2-5.5) L 09/13/18 00:25 Globulin 2.8 gm/dL 09/13/18 00:25 Albumin/Globulin Ratio 1.4 (1.0-1.8) 09/13/18 00:25 Triglycerides 47 mg/dL (<150) 09/13/18 00:20 Cholesterol 114 mg/dL (<200) 09/13/18 00:20 LDL Cholesterol Direct 59 mg/dL (75-193) L 09/13/18 00:20 HDL Cholesterol 47 mg/dL (23-92) 09/13/18 00:20 TSH 1.37 uIU/ml (0.34-5.60) 09/13/18 00:25 Urine Source MIDSTREAM 09/13/18 20:40 Urine Color YELLOW 09/13/18 20:40 Urine Clarity CLEAR (CLEAR) 09/13/18 20:40 Urine pH 6.0 (4.6 - 8.0) 09/13/18 20:40 Ur Specific [place] >= 1.030 (1.005-1.030) 09/13/18 20:40 Urine Protein NEGATIVE mg/dL (NEGATIVE) 09/13/18 20:40 Urine Glucose (UA) NEGATIVE mg/dL (NEGATIVE) 09/13/18 20:40 Urine Ketones TRACE mg/dL (NEGATIVE) 09/13/18 20:40 Urine Blood NEGATIVE (NEGATIVE) 09/13/18 20:40 Urine Nitrate NEGATIVE (NEGATIVE) 09/13/18 20:40 Urine Bilirubin NEGATIVE (NEGATIVE) 09/13/18 20:40 Urine Urobilinogen 1.0 E.U./dL (0.2 - 1.0) 09/13/18 20:40 Ur Leukocyte Esterase TRACE (NEGATIVE) H 09/13/18 20:40 Urine RBC 0-2 /hpf (0-5) H 09/13/18 20:40 Urine WBC 2-5 /hpf (0-5) 09/13/18 20:40 Ur Epithelial Cells FEW /lpf (FEW) 09/13/18 20:40 Urine Bacteria 1+ /hpf (NONE SEEN) H 09/13/18 20:40 Urine Mucus FEW /lpf (FEW) 09/13/18 20:40 - Physical Exam Vitals and I&O: Vital Signs Temp 97.1 F 09/25/18 20:38 Pulse 76 09/25/18 20:38 Resp 18 09/25/18 20:38 BP 100/62 09/25/18 20:38 Pulse Ox 98 09/25/18 15:15 Intake & Output 09/25/18 09/25/18 09/26/18 06:59 18:59 06:59 Intake Total 240 850 120 Balance 240 850 120 Intake: Oral 240 850 120 Other: # Voids 1 3 # Bowel Movements 1 Active Medications: Current Medications Acetaminophen (Tylenol) 650 mg PO Q4HR PRN PRN Reason: Mild Pain / Temp above 100 Stop: 11/12/18 02:01 Al Hydrox/Mg Hydrox/Simethicone (Maalox) 30 ml PO Q4HR PRN PRN Reason: GI DISTRESS Stop: 11/12/18 02:01 Aspirin (Ecotrin) 81 mg PO DAILY [facility] Stop: 11/12/18 08:59 Last Admin: 09/25/18 09:14 Dose: 81 mg Atorvastatin Calcium (Lipitor) 10 mg PO DAILY [facility]; Protocol Stop: 11/12/18 08:59 Last Admin: 09/25/18 09:14 Dose: 10 mg Bisacodyl (Dulcolax 10 Mg Supp) 10 mg RC DAILY PRN PRN Reason: Constipation Stop: 11/12/18 23:12 Cyanocobalamin (Vitamin B12) 1,000 mcg IM QMONTH [facility] Stop: 10/12/18 10:01 Divalproex Sodium (Depakote Dr) 125 mg PO Q12HR [facility]; Protocol Stop: 11/19/18 20:59 Last Admin: 09/25/18 21:18 Dose: 125 mg Docusate Sodium (Colace) 100 mg PO DAILY [facility] Stop: 11/12/18 08:59 Last Admin: 09/25/18 09:14 Dose: 100 mg Donepezil HCl (Aricept) 5 mg PO HS [facility] Stop: 11/12/18 20:59 Last Admin: 09/25/18 21:18 Dose: 5 mg Doxazosin Mesylate (Cardura) 2 mg PO HS [facility] Stop: 11/12/18 20:59 Last Admin: 09/25/18 21:19 Dose: 2 mg Fexofenadine HCl (Noemi) 60 mg PO BID [facility] Stop: 11/12/18 08:59 Last Admin: 09/25/18 16:32 Dose: 60 mg Lorazepam (Ativan) 0.5 mg PO Q4HR PRN; Protocol PRN Reason: Anxiety Stop: 10/13/18 02:01 Last Admin: 09/19/18 20:49 Dose: 0.5 mg Magnesium Hydroxide (Milk Of Magnesia) 30 ml PO HS PRN PRN Reason: Constipation Memantine (Namenda) 5 mg PO BID [facility] Stop: 11/23/18 16:59 Last Admin: 09/25/18 16:31 Dose: 5 mg Multivitamins/Vitamin C (Theragran) 1 tab PO DAILY [facility] Stop: 11/12/18 08:59 Last Admin: 09/25/18 09:14 Dose: 1 tab Pantoprazole Sodium (Protonix) 40 mg PO DAILY@0730 [facility] Stop: 11/12/18 07:29 Last Admin: 09/25/18 06:52 Dose: Not Given Quetiapine Fumarate (Seroquel) 200 mg PO BID [facility]; Protocol Stop: 11/12/18 08:59 Last Admin: 09/25/18 16:31 Dose: 200 mg Sodium Phosphate (Fleet Enema) 135 ml RC DAILY PRN PRN Reason: Constipation Stop: 11/12/18 02:08 General: demented HEENT: NC/AT, PERRLA, EOMI, anicteric sclerae, throat clear Neck: Supple, No JVD, No thyromegaly, +2 carotid pulse wo bruit, No LAD, + JVD Cardiovascular: RRR, Normal S1, Normal S2, without murmur Abdomen: soft, non-tender, non-distended Extremities: clear Neurological: no change Internal Medicine Assmt/Plan - Assessment Assessment: 1.BPH. 2.DJD. 3.CONSTIPATION. 4.DEMENTIA. - Plan Plan: CONTINUE ON CURRENT MEDICATION AND DIET. Nutritional Asmnt/Malnutr-PDOC - Dietary Evaluation Malnutrition Findings (Please click <Entered> for more info): Nutritional Asmnt/Malnutrition Start: 09/21/18 15: 13 Text: Status: Complete Freq: Protocol: Document 09/21/18 15:13 LCHENG (Rec: 09/21/18 15:35 [id number]) Nutritional Asmnt/Malnutrition Patient General Information Nutritional Screening Low Risk Diagnosis psychosis Pertinent Medical Hx/Surgical Hx HTN, chronic constipation, dementia, psychosis, BPH Subjective Information Pt seen walking in hallway, confused, looking for him room . Directed pt to dinning room for lunch. per EMR, PO intake 100%. Current Diet Order/ Nutrition Support cardiac, ANITA Pertinent Medications lipitor, vit b12, colace, theragran, protonix, seroquel Pertinent Labs 09/13 alb 4.0 Nutritional Hx/Data Height 1.83 m Height (Calculated Centimeters) 182.9 Current Weight (lbs) 72.575 kg Weight (Calculated Kilograms) 72.6 Weight (Calculated Grams) 67168.8 [place] Body Weight 178 Body Mass Index (BMI) 21.7 Weight Status Approriate GI Symptoms GI Symptoms None Last BM 4/3 Difficult in: None Skin Integrity/Comment: intact Current %PO Good (75-100%) Estimated Nutritional Goals BEE in Kcals: Using Current wt Calories/Kcals/Kg 25-30 Kcals Calculated 7203-8357 Protein: Using Current wt Protein g/k Protein Calculated 73 Fluid: ml 1825-2190ml (1ml/kcal) Nutritional Problem No current Nutrition Prob Problem N/A Malnutrition Alert Is there a minimum of two criteria No selected? Query Text:Check all the applicable criteria. A minimum of two criteria are recommended for diagnosis of either severe or non-severe malnutrition. Malnutrition Related to Morbid Obesity Malnutrition related to morbid obesity No Intervention/Recommendation Comments 1. Continue with cardiac, ANITA diet as ordered. 2. Monitor PO intake, wt, labs and skin integrity 3. F/U as low risk in 7 days Expected Outcomes/Goals Expected Outcomes/Goals 1. PO intake to meet at least 75% of nutritional needs. 2. Wt stability, skin to remain intact, labs to approach WNL.
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
[2018-09-26] MEDS: Pantoprazole 40 mg EC Tab PO SCH (06:53)
[2018-09-26] MEDS: Multivitamin Tab PO SCH (08:56)
[2018-09-26] MEDS: Atorvastatin Calcium 10 MG TAB PO SCH (08:56)
[2018-09-26] MEDS: Fexofenadine 60 mg Tab PO SCH ×2 (09:00→16:38)
--- NOTE | 2018-09-26 20:56 | Internal Medicine Prog Note ---
Internal Medicine Subjective - Subjective Service Date: 09/26/18 Patient seen and examined:: with staff Patient is:: awake, in bed, confused Per staff patient has:: no adverse event Internal Medicine Objective - Results Result Diagrams: 09/13/18 00:20 09/13/18 00:25 Recent Labs: Laboratory Last Values WBC 5.5 Th/cmm (4.8-10.8) 09/13/18 00:20 RBC 3.97 Mil/cmm (3.80-5.80) 09/13/18 00:20 Hgb 13.1 gm/dL (12-16) 09/13/18 00:20 Hct 39.0 % (41.0-60) L 09/13/18 00:20 MCV 98.1 fl (80-99) 09/13/18 00:20 MCH 32.8 pg (27.0-31.0) H 09/13/18 00:20 MCHC Differential 33.5 pg (28.0-36.0) 09/13/18 00:20 RDW 13.1 % (11.5-20.0) 09/13/18 00:20 Plt Count 177 Th/cmm (150-400) 09/13/18 00:20 MPV 8.5 fl 09/13/18 00:20 Neutrophils % 67.0 % (40.0-80.0) 09/13/18 00:20 Lymphocytes % 19.0 % (20.0-50.0) L 09/13/18 00:20 Monocytes % 9.1 % (2.0-10.0) 09/13/18 00:20 Eosinophils % 4.7 % (0.0-5.0) 09/13/18 00:20 Basophils % 0.2 % (0.0-2.0) 09/13/18 00:20 Sodium 141 mEq/L (136-145) 09/13/18 00:25 Potassium 3.8 mEq/L (3.5-5.1) 09/13/18 00:25 Chloride 106 mEq/L (98-107) 09/13/18 00:25 Carbon Dioxide 25.7 mEq/L (21.0-31.0) 09/13/18 00:25 Anion Gap 13.1 (7.0-16.0) 09/13/18 00:25 BUN 16 mg/dL (7-25) 09/13/18 00:25 Creatinine 1.1 mg/dL (0.7-1.3) 09/13/18 00:25 Est GFR ( Amer) TNP 09/13/18 00:25 Est GFR (Non-Af Amer) TNP 09/13/18 00:25 BUN/Creatinine Ratio 14.5 09/13/18 00:25 Glucose 91 mg/dL (70-105) 09/13/18 00:25 Calcium 9.5 mg/dL (8.6-10.3) 09/13/18 00:25 Total Bilirubin 0.5 mg/dL (0.3-1.0) 09/13/18 00:25 AST 19 U/L (13-39) 09/13/18 00:25 ALT 16 U/L (7-52) 09/13/18 00:25 Alkaline Phosphatase 81 U/L (34-104) 09/13/18 00:25 Troponin I 0.01 ng/mL (0.01-0.05) 09/13/18 00:25 B-Natriuretic Peptide < 5.0 pg/mL (5.0-100.0) L 09/13/18 00:25 Total Protein 6.8 gm/dL (6.0-8.3) 09/13/18 00:25 Albumin 4.0 gm/dL (4.2-5.5) L 09/13/18 00:25 Globulin 2.8 gm/dL 09/13/18 00:25 Albumin/Globulin Ratio 1.4 (1.0-1.8) 09/13/18 00:25 Triglycerides 47 mg/dL (<150) 09/13/18 00:20 Cholesterol 114 mg/dL (<200) 09/13/18 00:20 LDL Cholesterol Direct 59 mg/dL (75-193) L 09/13/18 00:20 HDL Cholesterol 47 mg/dL (23-92) 09/13/18 00:20 TSH 1.37 uIU/ml (0.34-5.60) 09/13/18 00:25 Urine Source MIDSTREAM 09/13/18 20:40 Urine Color YELLOW 09/13/18 20:40 Urine Clarity CLEAR (CLEAR) 09/13/18 20:40 Urine pH 6.0 (4.6 - 8.0) 09/13/18 20:40 Ur Specific [place] >= 1.030 (1.005-1.030) 09/13/18 20:40 Urine Protein NEGATIVE mg/dL (NEGATIVE) 09/13/18 20:40 Urine Glucose (UA) NEGATIVE mg/dL (NEGATIVE) 09/13/18 20:40 Urine Ketones TRACE mg/dL (NEGATIVE) 09/13/18 20:40 Urine Blood NEGATIVE (NEGATIVE) 09/13/18 20:40 Urine Nitrate NEGATIVE (NEGATIVE) 09/13/18 20:40 Urine Bilirubin NEGATIVE (NEGATIVE) 09/13/18 20:40 Urine Urobilinogen 1.0 E.U./dL (0.2 - 1.0) 09/13/18 20:40 Ur Leukocyte Esterase TRACE (NEGATIVE) H 09/13/18 20:40 Urine RBC 0-2 /hpf (0-5) H 09/13/18 20:40 Urine WBC 2-5 /hpf (0-5) 09/13/18 20:40 Ur Epithelial Cells FEW /lpf (FEW) 09/13/18 20:40 Urine Bacteria 1+ /hpf (NONE SEEN) H 09/13/18 20:40 Urine Mucus FEW /lpf (FEW) 09/13/18 20:40 - Physical Exam Vitals and I&O: Vital Signs Temp 98.1 F 09/26/18 20:50 Pulse 82 09/26/18 20:50 Resp 18 09/26/18 20:50 BP 116/65 09/26/18 20:50 Pulse Ox 97 09/26/18 20:50 Intake & Output 09/26/18 09/26/18 09/27/18 06:59 18:59 06:59 Intake Total 120 800 120 Balance 120 800 120 Intake: Oral 120 800 120 Other: # Voids 3 # Bowel Movements 1 Active Medications: Current Medications Acetaminophen (Tylenol) 650 mg PO Q4HR PRN PRN Reason: Mild Pain / Temp above 100 Stop: 11/12/18 02:01 Al Hydrox/Mg Hydrox/Simethicone (Maalox) 30 ml PO Q4HR PRN PRN Reason: GI DISTRESS Stop: 11/12/18 02:01 Aspirin (Ecotrin) 81 mg PO DAILY [facility] Stop: 11/12/18 08:59 Last Admin: 04/09/19 08:56 Dose: 81 mg Atorvastatin Calcium (Lipitor) 10 mg PO DAILY [facility]; Protocol Stop: 11/12/18 08:59 Last Admin: 09/26/18 08:56 Dose: 10 mg Bisacodyl (Dulcolax 10 Mg Supp) 10 mg RC DAILY PRN PRN Reason: Constipation Stop: 11/12/18 23:12 Cyanocobalamin (Vitamin B12) 1,000 mcg IM QMONTH [facility] Stop: 10/12/18 10:01 Divalproex Sodium (Depakote Dr) 125 mg PO Q12HR [facility]; Protocol Stop: 11/19/18 20:59 Last Admin: 09/26/18 20:39 Dose: 125 mg Docusate Sodium (Colace) 100 mg PO DAILY [facility] Stop: 11/12/18 08:59 Last Admin: 09/26/18 08:56 Dose: 100 mg Donepezil HCl (Aricept) 5 mg PO HS [facility] Stop: 11/12/18 20:59 Last Admin: 09/26/18 20:39 Dose: 5 mg Doxazosin Mesylate (Cardura) 2 mg PO HS [facility] Stop: 11/12/18 20:59 Last Admin: 09/26/18 20:39 Dose: 2 mg Fexofenadine HCl (Noemi) 60 mg PO BID [facility] Stop: 11/12/18 08:59 Last Admin: 09/26/18 16:38 Dose: 60 mg Lorazepam (Ativan) 0.5 mg PO Q4HR PRN; Protocol PRN Reason: Anxiety Stop: 10/13/18 02:01 Last Admin: 09/19/18 20:49 Dose: 0.5 mg Magnesium Hydroxide (Milk Of Magnesia) 30 ml PO HS PRN PRN Reason: Constipation Memantine (Namenda) 5 mg PO BID [facility] Stop: 11/23/18 16:59 Last Admin: 09/26/18 16:33 Dose: 5 mg Multivitamins/Vitamin C (Theragran) 1 tab PO DAILY [facility] Stop: 11/12/18 08:59 Last Admin: 09/26/18 08:56 Dose: 1 tab Pantoprazole Sodium (Protonix) 40 mg PO DAILY@0730 [facility] Stop: 11/12/18 07:29 Last Admin: 09/26/18 06:53 Dose: 40 mg Quetiapine Fumarate (Seroquel) 200 mg PO BID [facility]; Protocol Stop: 11/12/18 08:59 Last Admin: 09/26/18 16:33 Dose: 200 mg Sodium Phosphate (Fleet Enema) 135 ml RC DAILY PRN PRN Reason: Constipation Stop: 11/12/18 02:08 General: demented HEENT: NC/AT, PERRLA, EOMI, anicteric sclerae, throat clear Neck: Supple, No JVD, No thyromegaly, +2 carotid pulse wo bruit, No LAD, + JVD Cardiovascular: RRR, Normal S1, Normal S2, without murmur Abdomen: soft, non-tender, non-distended Extremities: clear Neurological: no change Internal Medicine Assmt/Plan - Assessment Assessment: 1.BPH. 2.DJD. 3.CONSTIPATION. 4.DEMENTIA. - Plan Plan: CONTINUE ON CURRENT MEDICATION AND DIET. Nutritional Asmnt/Malnutr-PDOC - Dietary Evaluation Malnutrition Findings (Please click <Entered> for more info): Nutritional Asmnt/Malnutrition Start: 09/21/18 15: 13 Text: Status: Complete Freq: Protocol: Document 09/21/18 15:13 LCHENG (Rec: 09/21/18 15:35 LCHENG [id number]) Nutritional Asmnt/Malnutrition Patient General Information Nutritional Screening Low Risk Diagnosis psychosis Pertinent Medical Hx/Surgical Hx HTN, chronic constipation, dementia, psychosis, BPH Subjective Information Pt seen walking in hallway, confused, looking for him room . Directed pt to dinning room for lunch. per EMR, PO intake 100%. Current Diet Order/ Nutrition Support cardiac, ANITA Pertinent Medications lipitor, vit b12, colace, theragran, protonix, seroquel Pertinent Labs 09/13 alb 4.0 Nutritional Hx/Data Height 1.83 m Height (Calculated Centimeters) 182.9 Current Weight (lbs) 72.575 kg Weight (Calculated Kilograms) 72.6 Weight (Calculated Grams) 28827.8 [place] Body Weight 178 Body Mass Index (BMI) 21.7 Weight Status Approriate GI Symptoms GI Symptoms None Last BM 4/3 Difficult in: None Skin Integrity/Comment: intact Current %PO Good (75-100%) Estimated Nutritional Goals BEE in Kcals: Using Current wt Calories/Kcals/Kg 25-30 Kcals Calculated 4218-6792 Protein: Using Current wt Protein g/k Protein Calculated 73 Fluid: ml 1825-2190ml (1ml/kcal) Nutritional Problem No current Nutrition Prob Problem N/A Malnutrition Alert Is there a minimum of two criteria No selected? Query Text:Check all the applicable criteria. A minimum of two criteria are recommended for diagnosis of either severe or non-severe malnutrition. Malnutrition Related to Morbid Obesity Malnutrition related to morbid obesity No Intervention/Recommendation Comments 1. Continue with cardiac, ANITA diet as ordered. 2. Monitor PO intake, wt, labs and skin integrity 3. F/U as low risk in 7 days Expected Outcomes/Goals Expected Outcomes/Goals 1. PO intake to meet at least 75% of nutritional needs. 2. Wt stability, skin to remain intact, labs to approach WNL.
--- NOTE | 2018-09-27 03:12 | Progress Notes ---
DATE: 09/26/2018 SUBJECTIVE: An 83-year-old male who remains impulsive, unpredictable, ongoing concerns about the safety of the staff. He is very confused, disoriented, but does seem to be showing some signs of improvement, not as aggressive, no biting episodes. For example, AO to name only, pacing back and forth, going into people's rooms, but not his rooms, tolerant of treatment thus far. ASSESSMENT: The patient approaching his baseline, still anxious, but redirectable. PLAN: We will monitor for further 24 hours. JOB# [id number]
[2018-09-27] MEDS: Pantoprazole 40 mg EC Tab PO SCH (06:37)
[2018-09-27] MEDS: Atorvastatin Calcium 10 MG TAB PO SCH (08:36)
[2018-09-27] MEDS: Multivitamin Tab PO SCH (08:37)
[2018-09-27] MEDS: Fexofenadine 60 mg Tab PO SCH (11:00)
== END 2018-09-27 14:45 | DRG 885 ==
LOC: ER 23:41 → GERO 09-13 01:25
PROVIDERS: ADMIT Psychiatry & Neurology Psychiatry; ATTEND Psychiatry & Neurology Psychiatry
DX: F20.9 Schizophrenia, unspecified (principal); F39 Unspecified mood [affective] disorder; F41.9 Anxiety disorder, unspecified; N40.0 Benign prostatic hyperplasia without lower urinary tract symptoms; K59.09 Other constipation; F03.90 Unspecified dementia, unspecified severity, without behavioral disturbance, psychotic disturbance, mood disturbance, and anxiety; M19.90 Unspecified osteoarthritis, unspecified site; I10 Essential (primary) hypertension; F29 Unspecified psychosis not due to a substance or known physiological condition
CPT/HCPCS: 36415-UA; 71045-TC; 80053-TC; 80061-TC; 81001-TC; 83036-90; 83880-TC; 84443-TC; 84484-TC; 85025-TC; 93005; G0410; J3420; Z7610